=== PATIENT | female | born 1950 ===

== ENCOUNTER 2022-01-01 13:58 | Inpatient (IN) | payer SELFPAY ==
[2022-01-01] MEDS ORDERED: SODIUM CHLORIDE 0.9% 1000 ML IV SOLN IV ONE (14:55)
[2022-01-01] MEDS ORDERED: ACETAMINOPHEN 325 MG TAB PO ONE (14:56)
[2022-01-01 15:28] LABS: Hematocrit 36.1 % (30.3-42.9); Hemoglobin 11.7 gm/dl (10.1-14.3); Mean Corpuscular HGB Conc 32 % (30-34); Mean Corpuscular Volume 94 fl (79-97); Platelet Count 190 K/mm3 (140-440); Red Blood Count 3.85 M/mm3 (3.65-5.03)
[2022-01-01 15:32] LABS: INR 1.01 (0.87-1.13)
[2022-01-01 15:33] LABS: Partial Thromboplastin Time 35.8 Sec. (24.2-36.6)
[2022-01-01 15:48] LABS: Alanine Aminotransferase 45 units/L (7-56); Albumin 3.7 g/dL (3.9-5); BUN/Creatinine Ratio 33; Blood Urea Nitrogen 50 mg/dL (7-17); Calcium 8.9 mg/dL (8.4-10.2); Hemolysis Index 0
--- NOTE | 2022-01-01 15:52 | Emergency Department Report ---
ED Fever HPI - General Chief Complaint: Chest Pain Stated Complaint: CHEST PAIN/ABDOMINAL PAIN Time Seen by Provider: 01/01/22 14:37 Source: patient, family, old records ([facility] Exam Limitations: language barrier - History of Present Illness Initial Comments: 71-year-old female the past medical history hypertension and diabetes presents to the hospital complaining of 2 days of fever, fatigue, and generalized body aches. Patient also complaining of right-sided abdominal pain, nausea without vomiting, diarrhea, and cough. She is unvaccinated for COVID. Previous surgical history includes and gallbladder removal. Dysuria reported. Patient also have reproducible sternal chest tenderness with shortness of breath ED Review of Systems ROS: Stated complaint: CHEST PAIN/ABDOMINAL PAIN Other details as noted in HPI Comment: All other systems reviewed and negative ED Past Medical Hx - Past Medical History Previous Medical History?: Yes Hx Hypertension: Yes Hx Diabetes: Yes - Surgical History Past Surgical History?: Yes Hx Appendectomy: Yes Additional Surgical History: - Social History Smoking Status: Never Smoker Substance Use Type: None ED Physical Exam - General Limitations: Language Barrier - Other Other exam information: General: No acute distress Head: Atraumatic Eyes: normal appearance ENT: Moist mucous membranes Neck: Normal appearance, no midline tenderness Chest: Clear to auscultation bilaterally, reproducible anterior sternal chest wall tenderness to palpation CV: Regular rate and rhythm Abdomen: Soft, normal bowel sounds, right upper quadrant tenderness with minimal right lower quadrant tendenes, nondistended, no rebound or guarding Back: Normal inspection Extremity: Normal inspection, full range of motion Neuro: Alert O x 3, no facial asymmetry, speech clear, no gross motor sensory deficit Psych: Appropriate behavior Skin: No rash, hot to touch ED Course Vital Signs 01/01/22 01/01/22 01/01/22 14:06 14:31 16:43 Temperature 99.7 F H Pulse Rate 90 99 H 86 Respiratory 20 24 22 Rate Blood Pressure 128/37 Blood Pressure 153/97 128/37 97/37 [Right] O2 Sat by Pulse 95 94 97 Oximetry 01/01/22 17:40 Temperature 98.8 F Pulse Rate 79 Respiratory 17 Rate Blood Pressure Blood Pressure 93/33 [Right] O2 Sat by Pulse 94 Oximetry ED Medical Decision Making - Lab Data Result diagrams: 01/01/22 14:42 01/01/22 14:42 Lab Results 01/01/22 01/01/22 01/01/22 Range/Units 14:42 14:42 14:42 WBC 9.0 (4.5-11.0) K/mm3 RBC 3.85 (3.65-5.03) M/mm3 Hgb 11.7 (10.1-14.3) gm/dl Hct 36.1 (30.3-42.9) % MCV 94 (79-97) fl MCH 30 (28-32) pg MCHC 32 (30-34) % RDW 15.0 (13.2-15.2) % Plt Count 190 (140-440) K/mm3 Add Manual Diff Complete Total Counted 100 Seg Neutrophils % [employer] Seg Neuts % (Manual) 96.0 H (40.0-70.0) % Band Neutrophils % 0 % Lymphocytes % (Manual) 2.0 L (13.4-35.0) % Reactive Lymphs % (Man) 0 % Monocytes % (Manual) 1.0 (0.0-7.3) % Eosinophils % (Manual) 0 (0.0-4.3) % Basophils % (Manual) 0 (0.0-1.8) % Metamyelocytes % 1.0 % Myelocytes % 0 % Promyelocytes % 0 % Blast Cells % 0 % Nucleated RBC % Not Reportable Seg Neutrophils # Man 8.6 H (1.8-7.7) K/mm3 Band Neutrophils # 0.0 K/mm3 Lymphocytes # (Manual) 0.2 L (1.2-5.4) K/mm3 Abs React Lymphs (Man) 0.0 K/mm3 Monocytes # (Manual) 0.1 (0.0-0.8) K/mm3 Eosinophils # (Manual) 0.0 (0.0-0.4) K/mm3 Basophils # (Manual) 0.0 (0.0-0.1) K/mm3 Metamyelocytes # 0.1 K/mm3 Myelocytes # 0.0 K/mm3 Promyelocytes # 0.0 K/mm3 Blast Cells # 0.0 K/mm3 WBC Morphology Not Reportable Hypersegmented Neuts Not Reportable Hyposegmented Neuts Few Hypogranular Neuts Not Reportable Smudge Cells Not Reportable Toxic Granulation Not Reportable Toxic Vacuolation Not Reportable Dohle Bodies Not Reportable Pelger-Huet Anomaly Not Reportable Pearl Rods Not Reportable Platelet Estimate Consistent w auto Clumped Platelets Not Reportable Plt Clumps, EDTA Not Reportable Large Platelets Rare Giant Platelets Not Reportable Platelet Satelliting Not Reportable Plt Morphology Comment Not Reportable RBC Morphology Not Reportable Dimorphic RBCs Not Reportable Polychromasia Not Reportable Hypochromasia Not Reportable Poikilocytosis 1+ Anisocytosis Not Reportable Microcytosis Not Reportable Macrocytosis Not Reportable Spherocytes Few Pappenheimer Bodies Not Reportable Sickle Cells Not Reportable Target Cells Not Reportable Tear Drop Cells Not Reportable Ovalocytes Not Reportable Stomatocytes Few Helmet Cells Not Reportable Dubose-[place] Bodies Not Reportable [place] Rings Not Reportable Nishant Cells Not Reportable Bite Cells Not Reportable Crenated Cell Not Reportable Elliptocytes Not Reportable Acanthocytes (Spur) Not Reportable Rouleaux Not Reportable Hemoglobin C Crystals Not Reportable Schistocytes Not Reportable Malaria parasites Not Reportable Nicholas Bodies Not Reportable Hem Pathologist Commnt No PT 14.7 (12.2-14.9) Sec. INR 1.01 (0.87-1.13) APTT 35.8 (24.2-36.6) Sec. Sodium 130 L (137-145) mmol/L Potassium 4.1 (3.6-5.0) mmol/L Chloride 94.7 L (98-107) mmol/L Carbon Dioxide 21 L (22-30) mmol/L Anion Gap 18 mmol/L BUN 50 H (7-17) mg/dL Creatinine 1.5 H (0.6-1.2) mg/dL Estimated GFR 34 ml/min BUN/Creatinine Ratio 33 % Glucose 186 H (65-100) mg/dL Lactic Acid (0.7-2.0) mmol/L Calcium 8.9 (8.4-10.2) mg/dL Total Bilirubin 0.90 (0.1-1.2) mg/dL AST 91 H (5-40) units/L ALT 45 (7-56) units/L Alkaline Phosphatase 117 (35-129) units/L Troponin T < 0.010 (0.00-0.029) ng/mL Total Protein 6.4 (6.3-8.2) g/dL Albumin 3.7 L (3.9-5) g/dL Albumin/Globulin Ratio 1.4 % Lipase (13-60) units/L Urine Color (Yellow) Urine Turbidity (Clear) Urine pH (5.0-7.0) Ur Specific [place] (1.003-1.030) Urine Protein (Negative) mg/dL Urine Glucose (UA) (Negative) mg/dL Urine Ketones (Negative) mg/dL Urine Blood (Negative) Urine Nitrite (Negative) Urine Bilirubin (Negative) Urine Urobilinogen (<2.0) mg/dL Ur Leukocyte Esterase (Negative) Urine WBC (Auto) (0.0-6.0) /HPF Urine RBC (Auto) (0.0-6.0) /HPF U Epithel Cells (Auto) (0-13.0) /HPF Urine Bacteria (Auto) (Negative) /HPF Urine WBC Clumps /HPF Urine Mucus /HPF 01/01/22 01/01/22 01/01/22 Range/Units 14:42 15:02 16:43 WBC (4.5-11.0) K/mm3 RBC (3.65-5.03) M/mm3 Hgb (10.1-14.3) gm/dl Hct (30.3-42.9) % MCV (79-97) fl MCH (28-32) pg MCHC (30-34) % RDW (13.2-15.2) % Plt Count (140-440) K/mm3 Add Manual Diff Total Counted Seg Neutrophils % Seg Neuts % (Manual) (40.0-70.0) % Band Neutrophils % % Lymphocytes % (Manual) (13.4-35.0) % Reactive Lymphs % (Man) % Monocytes % (Manual) (0.0-7.3) % Eosinophils % (Manual) (0.0-4.3) % Basophils % (Manual) (0.0-1.8) % Metamyelocytes % % Myelocytes % % Promyelocytes % % Blast Cells % % Nucleated RBC % Seg Neutrophils # Man (1.8-7.7) K/mm3 Band Neutrophils # K/mm3 Lymphocytes # (Manual) (1.2-5.4) K/mm3 Abs React Lymphs (Man) K/mm3 Monocytes # (Manual) (0.0-0.8) K/mm3 Eosinophils # (Manual) (0.0-0.4) K/mm3 Basophils # (Manual) (0.0-0.1) K/mm3 Metamyelocytes # K/mm3 Myelocytes # K/mm3 Promyelocytes # K/mm3 Blast Cells # K/mm3 WBC Morphology Hypersegmented Neuts Hyposegmented Neuts Hypogranular Neuts Smudge Cells Toxic Granulation Toxic Vacuolation Dohle Bodies Pelger-Huet Anomaly Pearl Rods Platelet Estimate Clumped Platelets Plt Clumps, EDTA Large Platelets Giant Platelets Platelet Satelliting Plt Morphology Comment RBC Morphology Dimorphic RBCs Polychromasia Hypochromasia Poikilocytosis Anisocytosis Microcytosis Macrocytosis Spherocytes Pappenheimer Bodies Sickle Cells Target Cells Tear Drop Cells Ovalocytes Stomatocytes Helmet Cells Dubose-[place] Bodies [place] Rings [place] Cells Bite Cells Crenated Cell Elliptocytes Acanthocytes (Spur) Rouleaux Hemoglobin C Crystals Schistocytes Malaria parasites Nicholas Bodies Hem Pathologist Commnt PT (12.2-14.9) Sec. INR (0.87-1.13) APTT (24.2-36.6) Sec. Sodium (137-145) mmol/L Potassium (3.6-5.0) mmol/L Chloride (98-107) mmol/L Carbon Dioxide (22-30) mmol/L Anion Gap mmol/L BUN (7-17) mg/dL Creatinine (0.6-1.2) mg/dL Estimated GFR ml/min BUN/Creatinine Ratio % Glucose (65-100) mg/dL Lactic Acid 1.20 (0.7-2.0) mmol/L Calcium (8.4-10.2) mg/dL Total Bilirubin (0.1-1.2) mg/dL AST (5-40) units/L ALT (7-56) units/L Alkaline Phosphatase (35-129) units/L Troponin T (0.00-0.029) ng/mL Total Protein (6.3-8.2) g/dL Albumin (3.9-5) g/dL Albumin/Globulin Ratio % Lipase 49 (13-60) units/L Urine Color Yellow (Yellow) Urine Turbidity Cloudy (Clear) Urine pH 6.0 (5.0-7.0) Ur Specific [place] 1.013 (1.003-1.030) Urine Protein 30 mg/dl (Negative) mg/dL Urine Glucose (UA) >=500 (Negative) mg/dL Urine Ketones Neg (Negative) mg/dL Urine Blood Lg (Negative) Urine Nitrite Neg (Negative) Urine Bilirubin Neg (Negative) Urine Urobilinogen < 2.0 (<2.0) mg/dL Ur Leukocyte Esterase Lg (Negative) Urine WBC (Auto) > 182.0 H (0.0-6.0) /HPF Urine RBC (Auto) 36.0 (0.0-6.0) /HPF U Epithel Cells (Auto) 4.0 (0-13.0) /HPF Urine Bacteria (Auto) 4+ (Negative) /HPF Urine WBC Clumps 3+ /HPF Urine Mucus Few /HPF - EKG Data -: EKG Interpreted by Pr EKG shows normal: sinus rhythm, intervals (Prolonged TN 228), ST-T waves (No STEMI) Rate: normal (79) - EKG Data When compared to previous EKG there are: previous EKG unavailable - Radiology Data Radiology results: report reviewed CT abdomen pelvis w con INDICATION / CLINICAL INFORMATION: right sided abd pain, fever. TECHNIQUE: CT abdomen pelvis following 100 mL Omnipaque [address] scans at this location are performed using CT dose reduction for ALARA by means of automated exposure control. COMPARISON: None available. FINDINGS: Abdomen and pelvis: The exam is somewhat limited by respiratory motion artifact. The lower lungs are clear of acute infiltrate. The liver, spleen, pancreas adrenal glands are grossly unremarkable. The stomach is collapsed making evaluation difficult. The appendix is not well visualized. There is moderate stool burden within the cecum. No free air or free fluid is appreciated. There is moderate atherosclerotic disease of the abdominal aorta. Urinary bladder wall is slightly thickened. There is slight enhancement involving both ureters. There is slight bilateral perinephric stranding. Review of bone windows demonstrates mild thoracolumbar degenerative change IMPRESSION: Slight enhancement involving the urothelium of the urinary bladder and both ureters. This is somewhat nonspecific but can be seen with urinary tract infection. CHEST 1 VIEW 01/01/2022 2:29 PM INDICATION / CLINICAL INFORMATION: Chest Pain. COMPARISON: None available. FINDINGS: SUPPORT DEVICES: None. HEART / MEDIASTINUM: No significant abnormality. LUNGS / PLEURA: No significant pulmonary or pleural abnormality. No pneumothorax. ADDITIONAL FINDINGS: No significant additional findings. IMPRESSION: 1. No acute findings. - Medical Decision Making 69-year-old female presents to the hospital with fever and dysuria. ED work-up reveals acute UTI, renal insufficiency, hyponatremia, and dehydration. CT abdomen and pelvis consistent with a UTI with perinephric stranding. Patient treated with a 30 mill per KG bolus of normal saline and IV Rocephin. Patient does have some mild hypotension. Additional normal saline ordered. normal WBC count and lactic acid. hospitalist to admit Critical Care Time: No Critical care attestation.: If time is entered above; I have spent that time in minutes in the direct care of this critically ill patient, excluding procedure time. ED Disposition Clinical Impression: UTI (urinary tract infection), Dehydration, Renal insufficiency, Hyponatremia Disposition: 09 ADMITTED INPATIENT Is pt being admited?: Yes Condition: Stable Referrals: PRIMARY CARE, [Primary Care Provider] - 3-5 Days Time of Disposition: 19:20 (Dr Castle/hosptialist)
[2022-01-01 16:03] LABS: Basophils % (Manual) 0 % (0.0-1.8); Eosinophils % (Manual) 0 % (0.0-4.3); Total Cells Counted 100
[2022-01-01 16:05] LABS: Poikilocytosis 1+; Spherocytes Few; Stomatocytes Few
[2022-01-01 16:06] LABS: Large Platelets Rare; Platelet Estimate Consistent w Auto
[2022-01-01 16:54] LABS: Bilirubin,Urine NEG (Negative); Blood,Urine LG (Negative); Color,Urine Yellow (Yellow); Urobilinogen,Urine < 2.0 mg/dL (<2.0)
[2022-01-01 17:00] LABS: Bacteria,Urine 4+ /HPF (Negative); Mucus,Urine FEW /HPF
[2022-01-01 17:01] LABS: WBC,Urine > 182.0 /HPF (0.0-6.0)
[2022-01-01] MEDS ORDERED: cefTRIAXone/NS 1 GM/50 ML 1 GM/50 ML BAG IV ONE (17:25)
--- NOTE | 2022-01-01 17:44 | XRay Report ---
CHEST 1 VIEW 01/01/2022 2:29 PM INDICATION / CLINICAL INFORMATION: Chest Pain. COMPARISON: None available. FINDINGS: SUPPORT DEVICES: None. HEART / MEDIASTINUM: No significant abnormality. LUNGS / PLEURA: No significant pulmonary or pleural abnormality. No pneumothorax. ADDITIONAL FINDINGS: No significant additional findings. IMPRESSION: 1. No acute findings. Signer Name: Steven Euceda DO Signed: 01/01/2022 5:39 PM Workstation Name: [email or web address]
--- NOTE | 2022-01-01 19:06 | Cat Scan Report ---
CT abdomen pelvis w con INDICATION / CLINICAL INFORMATION: right sided abd pain, fever. TECHNIQUE: CT abdomen pelvis following 100 mL Omnipaque [address] scans at this location are performed using CT dose reduction for ALARA by means of automated exposure control. COMPARISON: None available. FINDINGS: Abdomen and pelvis: The exam is somewhat limited by respiratory motion artifact. The lower lungs are clear of acute infiltrate. The liver, spleen, pancreas adrenal glands are grossly unremarkable. The s tomach is collapsed making evaluation difficult. The appendix is not well visualized. There is modera te stool burden within the cecum. No free air or free fluid is appreciated. There is moderate atheros clerotic disease of the abdominal aorta. Urinary bladder wall is slightly thickened. There is slight enhancement involving both ureters. There is slight bilateral perinephric stranding. Review of bone windows demonstrates mild thoracolumbar degenerative change IMPRESSION: Slight enhancement involving the urothelium of the urinary bladder and both ureters. This is somewhat nonspecific but can be seen with urinary tract infection. Signer Name: Federico Smith MD Signed: 01/01/2022 7:02 PM Workstation Name: [email or web address] – [employer]
[2022-01-01] MEDS ORDERED: SODIUM CHLORIDE 0.9% 1000 ML 1,000 ML IV ONE (19:24)
--- NOTE | 2022-01-01 19:24 | History and Physical Report ---
History of Present Illness Chief complaint: I do not feel well History of present illness: 71 YO Female with HTN, DM, Vascular Dementia, Cerebral Atherosclerosis presents to ED for evaluation. Patient reports "I do not feel well". Patient states that over the previous 2 days she has experienced fever, fatigue, generalized body aches, lower abdominal discomfort, dysuria, nausea, diminished oral intake due to nausea, as well as low back pain. EMS was notified and upon arrival the patient was found to be in distress and subsequent transported to [facility] for further care and evaluation of the aforementioned symptoms. The patient was seen and evaluated in the emergency department. All lab imaging studies reviewed. Patient with CT scan of the abdomen and pelvis. Patient found to have clinical findings as well as clinical symptoms consistent with urinary tract infection complicated by cystitis as well as pyelonephritis, volume depletion, debility. Patient admitted to medical floor and initiated on IV antibiotic therapy. Patient knowledges fever but denies chills, chest pain, palpitation, adductive cough, skin rash and recent contact, ingestion of food/water from new or different sources, or known exposure to COVID-19. No prior admission for review. No medication listed at time of admission for campos nciliation. Advanced care planning conducted in ED. Past History Past Medical History: diabetes, hypertension Past Surgical History: appendectomy, Social history: , lives with family. denies: smoking, alcohol abuse Family history: diabetes, hypertension Medications and Allergies Allergies Allergy/AdvReac Type Severity Reaction Status Date / Time No Known Allergies Allergy Verified 01/01/22 14:15 Review of Systems Constitutional: fever, no weight loss, no weight gain Ears, nose, mouth and throat: no ear pain, no tinnitis, no decreased hearing Breasts: no change in shape, no swelling, no mass Cardiovascular: no chest pain, no orthopnea, no palpitations, no syncope Respiratory: no cough, no excessive sputum, no hemoptysis Gastrointestinal: abdominal pain, nausea, no constipation, no change in bowel habits, no hematemesis Genitourinary Female: pelvic pain, flank pain, dysuria, urgency, no hematuria, no vaginal itching, no vaginal odor, no genital sores, no vaginal dryness Rectal: no pain, no incontinence, no bleeding Musculoskeletal: no neck stiffness, no neck pain, no shooting arm pain, no arm numbness/tingling, no shooting leg pain Integumentary: no rash, no redness, no sores, no jaundice, no boils Neurological: no head injury, no paralysis, no parathesias, no numbness, no syncope Psychiatric: no anxiety, no memory loss, no sleep disturbances, no change in appetite, no change in libido Endocrine: no cold intolerance, no heat intolerance, no excessive thirst, no polydipsia, no nocturia, no excessive sweating Hematologic/Lymphatic: no easy bruising, no easy bleeding, no lymphedema Allergic/Immunologic: no urticaria, no allergic rhinitis, no anaphylaxis Exam - Constitutional Vitals: Temp Pulse Resp BP Pulse Ox 98.8 F 79 17 93/33 94 01/01/22 17:40 01/01/22 17:40 01/01/22 17:40 01/01/22 17:40 01/01/22 17:40 General appearance: Present: mild distress - EENT Eyes: Present: PERRL ENT: hearing intact, clear oral mucosa - Neck Neck: Present: supple, normal ROM - Respiratory Respiratory effort: normal Respiratory: bilateral: CTA - Cardiovascular Heart Sounds: Present: S1 & S2. Absent: rub, click - Extremities Extremities: pulses symmetrical, No edema Peripheral Pulses: within normal limits - Abdominal General gastrointestinal: Present: soft, non-tender, tender, normal bowel sounds Localized gastrointestinal: tender: suprapubic Female genitourinary: Present: normal - Rectal Rectal Exam: normal exam-external/orifice - Integumentary Integumentary: Present: clear, warm, dry - Musculoskeletal Musculoskeletal: gait normal, strength equal bilaterally - Psychiatric Psychiatric: appropriate mood/affect, intact judgment & insight - Neurologic Neurologic: CNII-XII intact, moves all extremities HEART Score - HEART Score Troponin: Troponin T < 0.010 ng/mL (0.00-0.029) 01/01/22 14:42 Results - Labs CBC & Chem 7: 01/01/22 14:42 01/01/22 14:42 Labs: Abnormal lab results 01/01/22 01/01/22 01/01/22 Range/Units 14:42 14:42 16:43 Seg Neuts % (Manual) 96.0 H (40.0-70.0) % Lymphocytes % (Manual) 2.0 L (13.4-35.0) % Seg Neutrophils # Man 8.6 H (1.8-7.7) K/mm3 Lymphocytes # (Manual) 0.2 L (1.2-5.4) K/mm3 Sodium 130 L (137-145) mmol/L Chloride 94.7 L (98-107) mmol/L Carbon Dioxide 21 L (22-30) mmol/L BUN 50 H (7-17) mg/dL Creatinine 1.5 H (0.6-1.2) mg/dL Glucose 186 H (65-100) mg/dL AST 91 H (5-40) units/L Albumin 3.7 L (3.9-5) g/dL Urine WBC (Auto) > 182.0 H (0.0-6.0) /HPF Assessment and Plan - Patient Problems (1) Pyelonephritis Current Visit: Yes Status: Acute Plan to address problem: CT scan abdomen pelvis, CBC, CMP, urinalysis, IV antibiotic therapy, supportive care. Pain control. (2) UTI (urinary tract infection) Current Visit: Yes Status: Acute Qualifiers: Encounter type: initial encounter Plan to address problem: Urinalysis, IV fluid resuscitation therapy, IV antibiotic therapy, supportive care. (3) Volume depletion Current Visit: Yes Status: Acute Plan to address problem: BMP, IV fluid resuscitation therapy, repeat BMP in a.m. to monitor serum creatinine as well as GFR, monitor fluid balance. (4) Acute kidney injury ([place]) with acute tubular necrosis (ATN) Current Visit: Yes Status: Acute Plan to address problem: BMP, IV fluid resuscitation therapy, monitor fluid balance, strict I's/O, repeat BMP in a.m. (5) Vascular dementia Current Visit: Yes Status: Acute Qualifiers: Dementia behavioral disturbance: without behavioral disturbance Qualified Code(s): F01.50 - Vascular dementia without behavioral disturbance Plan to address problem: Verbal prompting, verbal redirection, benzodiazepine therapy as clinically indicated. (6) Cerebral atherosclerosis Current Visit: Yes Status: Acute Plan to address problem: Antiplatelet therapy, risk factor reduction, supportive care. (7) Hyponatremia Current Visit: Yes Status: Acute Plan to address problem: IV fluid resuscitation therapy, BMP, repeat BMP in AM. (8) DVT prophylaxis Current Visit: Yes Status: Acute Plan to address problem: SCD to bilateral lower extremities while in bed, (9) Advance care planning Current Visit: Yes Status: Acute Plan to address problem: Disease education conducted, care plan discussed, diagnosis discussed, prognosis discussed, patient is full code. Patient knowledges understanding and agreement with care plan, +30 minutes. (10) Preventative health care Current Visit: Yes Status: Acute Plan to address problem: Patient counseled regarding home safety measures, accident avoidance, balanced diet, outpatient follow-up with primary care physician for all age and risk factor appropriate screening test. +30 minutes.
[2022-01-01] MEDS ORDERED: ONDANSETRON 4 MG/2 ML INJ IV PRN (19:33)
[2022-01-01] MEDS ORDERED: DEXTROSE 50% IN WATER (25GM) 50 ML SYRINGE IV PRN (19:47)
[2022-01-01] MEDS: ALBUTEROL 2.5 MG/3 ML NEBU IH PRN ×2 (22:20→22:28)
[2022-01-01] MEDS: SODIUM CHLORIDE 0.9% 1000 ML 1,000 ML IV SCH (22:32)
[2022-01-01] MEDS ORDERED: methylPREDNISolone Sod Succinate 125 MG/2 ML INJ IV ONE (22:45)
[2022-01-01] MEDS: INSULIN LISPRO 100 UNIT/ML SUB-Q SCH (22:51)
[2022-01-02 05:17] LABS: Calcium 8.6 mg/dL (8.4-10.2)
[2022-01-02] MEDS: INSULIN LISPRO 100 UNIT/ML SUB-Q SCH ×4 (08:06→22:49)
--- NOTE | 2022-01-02 09:55 | Progress Note ---
Assessment and Plan Assessment and plan: -- Acute pyelonephritis IV fluids, empiric antibiotics follow cultures supportive care, Check CT scan abdomen pelvis, --UTI (urinary tract infection) Urinalysis, IV fluid resuscitation therapy, IV antibiotic therapy, supportive care. Follow cultures and sensitivities --Volume depletion/dehydration Continue IV fluids, plenty of oral fluids Supportive care --Acute kidney injury (DICKSON) with acute tubular necrosis (ATN) IV fluid resuscitation therapy, monitor fluid balance, strict I's/O, repeat BMP in a.m. --History of vascular dementia Verbal prompting, verbal redirection, benzodiazepine therapy as clinically indicated. --Cerebral atherosclerosis Antiplatelet therapy, risk factor reduction, And supportive care. --Hyponatremia IV fluid resuscitation therapy, Monitor electrolytes . -- DVT prophylaxis SCD to bilateral lower extremities while in bed, --Advance care planning Disease education conducted, care plan discussed, diagnosis discussed, , prognosis discussed, patient is full code. Patient knowledges understanding and agreement with care plan, +30 minutes. --Preventive health care Patient counseled regarding home safety measures, accident avoidance, , balanced diet, outpatient follow-up with primary care physician for all age and risk factor appropriate screening test. +30 minutes. History Interval history: I seen and examined the patient at the bedside patient's chart and medications reviewed patient complains of some abdominal pain and flank pain Admitted with pyelonephritis on IV antibiotics Patient also complains of some back pain Vital signs noted Hospitalist Physical - Constitutional Vitals: Temp Pulse Resp BP Pulse Ox 97.8 F 72 18 101/26 100 01/02/22 05:56 01/02/22 05:56 01/02/22 05:56 01/02/22 05:56 01/02/22 07:26 General appearance: Present: mild distress, well-nourished, obese - EENT Eyes: Present: PERRL, EOM intact - Neck Neck: Present: supple, normal ROM - Respiratory Respiratory effort: normal Respiratory: bilateral: diminished, negative: rales, rhonchi, wheezing - Cardiovascular Rhythm: regular Heart Sounds: Present: S1 & S2 - Extremities Extremities: no ischemia, No edema - Abdominal General gastrointestinal: soft, non-tender, non-distended, normal bowel sounds - Integumentary Integumentary: Present: clear, warm - Psychiatric Psychiatric: appropriate mood/affect, cooperative - Neurologic Neurologic: CNII-XII intact, moves all extremities HEART Score - HEART Score Troponin: Troponin T < 0.010 ng/mL (0.00-0.029) 01/01/22 14:42 Results - Labs CBC & Chem 7: 01/01/22 14:42 01/02/22 04:45 Labs: Laboratory Last Values WBC 9.0 K/mm3 (4.5-11.0) 01/01/22 14:42 RBC 3.85 M/mm3 (3.65-5.03) 01/01/22 14:42 Hgb 11.7 gm/dl (10.1-14.3) 01/01/22 14:42 Hct 36.1 % (30.3-42.9) 01/01/22 14:42 MCV 94 fl (79-97) 01/01/22 14:42 MCH 30 pg (28-32) 01/01/22 14:42 MCHC 32 % (30-34) 01/01/22 14:42 RDW 15.0 % (13.2-15.2) 01/01/22 14:42 Plt Count 190 K/mm3 (140-440) 01/01/22 14:42 Add Manual Diff Complete 01/01/22 14:42 Total Counted 100 01/01/22 14:42 Seg 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 % [employer] 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 01/01/22 14:42 Seg Neuts % (Manual) 96.0 % (40.0-70.0) H 01/01/22 14:42 Band Neutrophils % 0 % 01/01/22 14:42 Lymphocytes % (Manual) 2.0 % (13.4-35.0) L 01/01/22 14:42 Reactive Lymphs % (Man) 0 % 01/01/22 14:42 Monocytes % (Manual) 1.0 % (0.0-7.3) 01/01/22 14:42 Eosinophils % (Manual) 0 % (0.0-4.3) 01/01/22 14:42 Basophils % (Manual) 0 % (0.0-1.8) 01/01/22 14:42 Metamyelocytes % 1.0 % 01/01/22 14:42 Myelocytes % 0 % 01/01/22 14:42 Promyelocytes % 0 % 01/01/22 14:42 Blast Cells % 0 % 01/01/22 14:42 Nucleated RBC % Not Reportable 01/01/22 14:42 Seg Neutrophils # Man 8.6 K/mm3 (1.8-7.7) H 01/01/22 14:42 Band Neutrophils # 0.0 K/mm3 01/01/22 14:42 Lymphocytes # (Manual) 0.2 K/mm3 (1.2-5.4) L 01/01/22 14:42 Abs React Lymphs (Man) 0.0 K/mm3 01/01/22 14:42 Monocytes # (Manual) 0.1 K/mm3 (0.0-0.8) 01/01/22 14:42 Eosinophils # (Manual) 0.0 K/mm3 (0.0-0.4) 01/01/22 14:42 Basophils # (Manual) 0.0 K/mm3 (0.0-0.1) 01/01/22 14:42 Metamyelocytes # 0.1 K/mm3 01/01/22 14:42 Myelocytes # 0.0 K/mm3 01/01/22 14:42 Promyelocytes # 0.0 K/mm3 01/01/22 14:42 Blast Cells # 0.0 K/mm3 01/01/22 14:42 WBC Morphology Not Reportable 01/01/22 14:42 Hypersegmented Neuts Not Reportable 01/01/22 14:42 Hyposegmented Neuts Few 01/01/22 14:42 Hypogranular Neuts Not Reportable 01/01/22 14:42 Smudge Cells Not Reportable 01/01/22 14:42 Toxic Granulation Not Reportable 01/01/22 14:42 Toxic Vacuolation Not Reportable 01/01/22 14:42 Dohle Bodies Not Reportable 01/01/22 14:42 Pelger-Huet Anomaly Not Reportable 01/01/22 14:42 Pearl Rods Not Reportable 01/01/22 14:42 Platelet Estimate Consistent w auto 01/01/22 14:42 Clumped Platelets Not Reportable 01/01/22 14:42 Plt Clumps, EDTA Not Reportable 01/01/22 14:42 Large Platelets Rare 01/01/22 14:42 Giant Platelets Not Reportable 01/01/22 14:42 Platelet Satelliting Not Reportable 01/01/22 14:42 Plt Morphology Comment Not Reportable 01/01/22 14:42 RBC Morphology Not Reportable 01/01/22 14:42 Dimorphic RBCs Not Reportable 01/01/22 14:42 Polychromasia Not Reportable 01/01/22 14:42 Hypochromasia Not Reportable 01/01/22 14:42 Poikilocytosis 1+ 01/01/22 14:42 Anisocytosis Not Reportable 01/01/22 14:42 Microcytosis Not Reportable 01/01/22 14:42 Macrocytosis Not Reportable 01/01/22 14:42 Spherocytes Few 01/01/22 14:42 Pappenheimer Bodies Not Reportable 01/01/22 14:42 Sickle Cells Not Reportable 01/01/22 14:42 Target Cells Not Reportable 01/01/22 14:42 Tear Drop Cells Not Reportable 01/01/22 14:42 Ovalocytes Not Reportable 01/01/22 14:42 Stomatocytes Few 01/01/22 14:42 Helmet Cells Not Reportable 01/01/22 14:42 [place] Bodies Not Reportable 01/01/22 14:42 [place] Rings Not Reportable 01/01/22 14:42 [place] Cells Not Reportable 01/01/22 14:42 Bite Cells Not Reportable 01/01/22 14:42 Crenated Cell Not Reportable 01/01/22 14:42 Elliptocytes Not Reportable 01/01/22 14:42 Acanthocytes (Spur) Not Reportable 01/01/22 14:42 Rouleaux Not Reportable 01/01/22 14:42 Hemoglobin C Crystals Not Reportable 01/01/22 14:42 Schistocytes Not Reportable 01/01/22 14:42 Malaria parasites Not Reportable 01/01/22 14:42 Nicholas Bodies Not Reportable 01/01/22 14:42 Hem Pathologist Commnt No 01/01/22 14:42 PT 14.7 Sec. (12.2-14.9) 01/01/22 14:42 INR 1.01 (0.87-1.13) 01/01/22 14:42 APTT 35.8 Sec. (24.2-36.6) 01/01/22 14:42 Sodium 132 mmol/L (137-145) L 01/02/22 04:45 Potassium 4.3 mmol/L (3.6-5.0) 01/02/22 04:45 Chloride 99.9 mmol/L (98-107) 01/02/22 04:45 Carbon Dioxide 17 mmol/L (22-30) L 01/02/22 04:45 Anion Gap 19 mmol/L 01/02/22 04:45 BUN 49 mg/dL (7-17) H 01/02/22 04:45 Creatinine 1.7 mg/dL (0.6-1.2) H 01/02/22 04:45 Estimated GFR 30 ml/min 01/02/22 04:45 BUN/Creatinine Ratio 29 % 01/02/22 04:45 Glucose 271 mg/dL (65-100) H 01/02/22 04:45 POC Glucose 251 mg/dL (70-105) H 01/02/22 07:56 Lactic Acid 0.80 mmol/L (0.7-2.0) 01/01/22 20:30 Calcium 8.6 mg/dL (8.4-10.2) 01/02/22 04:45 Total Bilirubin 0.90 mg/dL (0.1-1.2) 01/01/22 14:42 AST 91 units/L (5-40) H 01/01/22 14:42 ALT 45 units/L (7-56) 01/01/22 14:42 Alkaline Phosphatase 117 units/L (35-129) 01/01/22 14:42 Troponin T < 0.010 ng/mL (0.00-0.029) 01/01/22 14:42 Total Protein 6.4 g/dL (6.3-8.2) 01/01/22 14:42 Albumin 3.7 g/dL (3.9-5) L 01/01/22 14:42 Albumin/Globulin Ratio 1.4 % 01/01/22 14:42 Lipase 49 units/L (13-60) 01/01/22 14:42 Urine Color Yellow (Yellow) 01/01/22 16:43 Urine Turbidity Cloudy (Clear) 01/01/22 16:43 Urine pH 6.0 (5.0-7.0) 01/01/22 16:43 Ur Specific [place] 1.013 (1.003-1.030) 01/01/22 16:43 Urine Protein 30 mg/dl mg/dL (Negative) 01/01/22 16:43 Urine Glucose (UA) >=500 mg/dL (Negative) 01/01/22 16:43 Urine Ketones Neg mg/dL (Negative) 01/01/22 16:43 Urine Blood Lg (Negative) 01/01/22 16:43 Urine Nitrite Neg (Negative) 01/01/22 16:43 Urine Bilirubin Neg (Negative) 01/01/22 16:43 Urine Urobilinogen < 2.0 mg/dL (<2.0) 01/01/22 16:43 Ur Leukocyte Esterase Lg (Negative) 01/01/22 16:43 Urine WBC (Auto) > 182.0 /HPF (0.0-6.0) H 01/01/22 16:43 Urine RBC (Auto) 36.0 /HPF (0.0-6.0) 01/01/22 16:43 U Epithel Cells (Auto) 4.0 /HPF (0-13.0) 01/01/22 16:43 Urine Bacteria (Auto) 4+ /HPF (Negative) 01/01/22 16:43 Urine WBC Clumps 3+ /HPF 01/01/22 16:43 Urine Mucus Few /HPF 01/01/22 16:43 Microbiology: Microbiology 01/01/22 15:02 Peripheral/Venous Blood Culture - Preliminary Culture in Progress 01/01/22 15:02 Peripheral/Venous Blood Culture - Preliminary Culture in Progress Inman/IV: Voiding Method Bedpan Active Medications - Current Medications Current Medications: Generic Name Dose Route Start Last Admin Trade Name Freq PRN Reason Stop Dose Admin Acetaminophen 650 mg 01/01/22 19:33 Acetaminophen 325 Mg Tab PO Q4H PRN Pain MILD(1-3)/Fever >100.5/WHITE Albuterol 2.5 mg 01/01/22 19:33 01/01/22 22:28 Albuterol 2.5 Mg/3 Ml Nebu IH 2.5 mg Q4HRT PRN Administration Shortness Of Breath Dextrose 0 ml 01/01/22 19:47 Dextrose 50% In Water (25gm) 50 Ml Syringe IV Q30MIN PRN Hypoglycemia Protocol Hydromorphone HCl 0.5 mg 01/01/22 19:33 Hydromorphone 0.5 Mg/0.5 Ml Inj IV Q23H PRN Pain , Severe (7-10) Sodium Chloride 1,000 mls @ 100 mls/hr 01/01/22 19:45 01/01/22 22:32 Nacl 0.9% 1000 Ml IV 100 mls/hr DIRECT JOAN Administration Levofloxacin/Dextrose 750 mg in 150 mls @ 100 mls/hr 01/01/22 22:00 01/01/22 22:31 Levaquin 750mg/150ml IV 100 mls/hr Q48H JOAN Administration Protocol Insulin Human Lispro 0 unit 01/01/22 22:00 01/02/22 08:06 Insulin Lispro 100 Unit/Ml SUB-Q 4 unit ACHS JOAN Administration Protocol Ondansetron HCl 4 mg 01/01/22 19:33 Ondansetron 4 Mg/2 Ml Inj IV Q8H PRN Nausea And Vomiting Oxycodone/Acetaminophen 1 tab 01/01/22 19:33 Oxycodone /Acetaminophen 5-325mg Tab PO Q16H PRN Pain, Moderate (4-6) Sodium Chloride 10 ml 01/01/22 22:00 01/02/22 09:04 Sodium Chloride 0.9% 10 Ml Flush Syringe IV Not Given BID JOAN Sodium Chloride 10 ml 01/01/22 19:33 Sodium Chloride 0.9% 10 Ml Flush Syringe IV PRN PRN LINE FLUSH
[2022-01-02] MEDS: SODIUM CHLORIDE 0.9% 1000 ML 1,000 ML IV SCH ×2 (14:24→22:57)
[2022-01-02] MEDS ORDERED: INSULIN NPH/REGULAR 70/30 INJ SUB-Q SCH (17:00)
[2022-01-02] MEDS: INSULIN NPH/REGULAR 70/30 INJ SUB-Q SCH (17:32)
[2022-01-02] MEDS: HYDROmorphone 0.5 MG/0.5 ML INJ IV PRN (23:40)
[2022-01-03 05:42] LABS: Calcium 8.9 mg/dL (8.4-10.2)
[2022-01-03] MEDS: INSULIN LISPRO 100 UNIT/ML SUB-Q SCH ×4 (07:16→22:33)
[2022-01-03] MEDS: INSULIN NPH/REGULAR 70/30 INJ SUB-Q SCH ×2 (07:18→16:33)
--- NOTE | 2022-01-03 10:46 | Progress Note ---
Assessment and Plan Assessment and plan: --severe hyperglycemia/uncontrolled blood sugars; moderate control Accu-Chek sliding scale coverage changed to high scale, long-acting insulin 70/30 10 units twice a day Check hemoglobin A1c,, diabetic education, diabetic diet education Home health nurse at discharge for disease monitoring, closely monitor the patient and adjust management as needed We will consult diabetic specialist tomorrow for counseling. Plan of care reviewed with the patient and her nurse HbA1c 7.4 -- Acute pyelonephritis IV fluids, empiric antibiotics follow cultures supportive care, Continue Levaquin, follow-up urine and blood cultures Supportive care --UTI (urinary tract infection) Urinalysis, IV fluid resuscitation therapy, IV antibiotic therapy, supportive care. Follow cultures and sensitivities --Volume depletion/dehydration Continue IV fluids, plenty of oral fluids Supportive care --Acute kidney injury (DICKSON) with acute tubular necrosis (ATN) IV fluid resuscitation therapy, monitor fluid balance, strict I's/O, repeat BMP in a.m. --History of vascular dementia Verbal prompting, verbal redirection, benzodiazepine therapy as clinically indicated. --Cerebral atherosclerosis Antiplatelet therapy, risk factor reduction, And supportive care. --Hyponatremia IV fluid resuscitation therapy, Monitor electrolytes . -- DVT prophylaxis SCD to bilateral lower extremities while in bed, --Advance care plannin min Disease education conducted, care plan discussed, diagnosis discussed, , prognosis discussed, patient is full code. Patient knowledges understanding and agreement with care plan, +30 minutes. --Preventive health care +30 minutes. Patient counseled regarding home safety measures, accident avoidance, , balanced diet, outpatient follow-up with primary care physician for all age and risk factor appropriate screening test. Closely monitor the patient and adjust management as needed Plan of care reviewed with the patient [through interpretation by all bilingual family member ]and the family at the bedside History Interval history: I have seen and examined the patient at the bedside Patient's chart and medications reviewed Patient feels slightly better Vital signs noted Hospitalist Physical - Constitutional Vitals: Temp Pulse Resp BP Pulse Ox 98.0 F 58 L 18 161/52 98 01/02/22 23:10 01/02/22 23:10 01/02/22 23:10 01/02/22 23:10 01/03/22 08:58 General appearance: Present: mild distress, well-nourished, obese - EENT Eyes: Present: PERRL, EOM intact - Neck Neck: Present: supple, normal ROM - Respiratory Respiratory effort: normal Respiratory: bilateral: diminished, negative: rales, rhonchi, wheezing - Cardiovascular Rhythm: regular Heart Sounds: Present: S1 & S2 - Extremities Extremities: no ischemia, No edema - Abdominal General gastrointestinal: soft, non-tender, non-distended, normal bowel sounds - Integumentary Integumentary: Present: clear, warm - Psychiatric Psychiatric: appropriate mood/affect, cooperative - Neurologic Neurologic: moves all extremities HEART Score - HEART Score Troponin: Troponin T < 0.010 ng/mL (0.00-0.029) 01/01/22 14:42 Results - Labs CBC & Chem 7: 01/01/22 14:42 01/03/22 05:04 Labs: Laboratory Last Values WBC 9.0 K/mm3 (4.5-11.0) 01/01/22 14:42 RBC 3.85 M/mm3 (3.65-5.03) 01/01/22 14:42 Hgb 11.7 gm/dl (10.1-14.3) 01/01/22 14:42 Hct 36.1 % (30.3-42.9) 01/01/22 14:42 MCV 94 fl (79-97) 01/01/22 14:42 MCH 30 pg (28-32) 01/01/22 14:42 MCHC 32 % (30-34) 01/01/22 14:42 RDW 15.0 % (13.2-15.2) 01/01/22 14:42 Plt Count 190 K/mm3 (140-440) 01/01/22 14:42 Add Manual Diff Complete 01/01/22 14:42 Total Counted 100 01/01/22 14:42 Seg Neutrophils % Fixed Interest Dealer 01/01/22 14:42 Seg Neuts % (Manual) 96.0 % (40.0-70.0) H 01/01/22 14:42 Band Neutrophils % 0 % 01/01/22 14:42 Lymphocytes % (Manual) 2.0 % (13.4-35.0) L 01/01/22 14:42 Reactive Lymphs % (Man) 0 % 01/01/22 14:42 Monocytes % (Manual) 1.0 % (0.0-7.3) 01/01/22 14:42 Eosinophils % (Manual) 0 % (0.0-4.3) 01/01/22 14:42 Basophils % (Manual) 0 % (0.0-1.8) 01/01/22 14:42 Metamyelocytes % 1.0 % 01/01/22 14:42 Myelocytes % 0 % 01/01/22 14:42 Promyelocytes % 0 % 01/01/22 14:42 Blast Cells % 0 % 01/01/22 14:42 Nucleated RBC % Not Reportable 01/01/22 14:42 Seg Neutrophils # Man 8.6 K/mm3 (1.8-7.7) H 01/01/22 14:42 Band Neutrophils # 0.0 K/mm3 01/01/22 14:42 Lymphocytes # (Manual) 0.2 K/mm3 (1.2-5.4) L 01/01/22 14:42 Abs React Lymphs (Man) 0.0 K/mm3 01/01/22 14:42 Monocytes # (Manual) 0.1 K/mm3 (0.0-0.8) 01/01/22 14:42 Eosinophils # (Manual) 0.0 K/mm3 (0.0-0.4) 01/01/22 14:42 Basophils # (Manual) 0.0 K/mm3 (0.0-0.1) 01/01/22 14:42 Metamyelocytes # 0.1 K/mm3 01/01/22 14:42 Myelocytes # 0.0 K/mm3 01/01/22 14:42 Promyelocytes # 0.0 K/mm3 01/01/22 14:42 Blast Cells # 0.0 K/mm3 01/01/22 14:42 WBC Morphology Not Reportable 01/01/22 14:42 Hypersegmented Neuts Not Reportable 01/01/22 14:42 Hyposegmented Neuts Few 01/01/22 14:42 Hypogranular Neuts Not Reportable 01/01/22 14:42 Smudge Cells Not Reportable 01/01/22 14:42 Toxic Granulation Not Reportable 01/01/22 14:42 Toxic Vacuolation Not Reportable 01/01/22 14:42 Dohle Bodies Not Reportable 01/01/22 14:42 Pelger-Huet Anomaly Not Reportable 01/01/22 14:42 Pearl Rods Not Reportable 01/01/22 14:42 Platelet Estimate Consistent w auto 01/01/22 14:42 Clumped Platelets Not Reportable 01/01/22 14:42 Plt Clumps, EDTA Not Reportable 01/01/22 14:42 Large Platelets Rare 01/01/22 14:42 Giant Platelets Not Reportable 01/01/22 14:42 Platelet Satelliting Not Reportable 01/01/22 14:42 Plt Morphology Comment Not Reportable 01/01/22 14:42 RBC Morphology Not Reportable 01/01/22 14:42 Dimorphic RBCs Not Reportable 01/01/22 14:42 Polychromasia Not Reportable 01/01/22 14:42 Hypochromasia Not Reportable 01/01/22 14:42 Poikilocytosis 1+ 01/01/22 14:42 Anisocytosis Not Reportable 01/01/22 14:42 Microcytosis Not Reportable 01/01/22 14:42 Macrocytosis Not Reportable 01/01/22 14:42 Spherocytes Few 01/01/22 14:42 Pappenheimer Bodies Not Reportable 01/01/22 14:42 Sickle Cells Not Reportable 01/01/22 14:42 Target Cells Not Reportable 01/01/22 14:42 Tear Drop Cells Not Reportable 01/01/22 14:42 Ovalocytes Not Reportable 01/01/22 14:42 Stomatocytes Few 01/01/22 14:42 Helmet Cells Not Reportable 01/01/22 14:42 [place] Bodies Not Reportable 01/01/22 14:42 [place] Rings Not Reportable 01/01/22 14:42 [place] Cells Not Reportable 01/01/22 14:42 Bite Cells Not Reportable 01/01/22 14:42 Crenated Cell Not Reportable 01/01/22 14:42 Elliptocytes Not Reportable 01/01/22 14:42 Acanthocytes (Spur) Not Reportable 01/01/22 14:42 Rouleaux Not Reportable 01/01/22 14:42 Hemoglobin C Crystals Not Reportable 01/01/22 14:42 Schistocytes Not Reportable 01/01/22 14:42 Malaria parasites Not Reportable 01/01/22 14:42 Nicholas Bodies Not Reportable 01/01/22 14:42 Hem Pathologist Commnt No 01/01/22 14:42 PT 14.7 Sec. (12.2-14.9) 01/01/22 14:42 INR 1.01 (0.87-1.13) 01/01/22 14:42 APTT 35.8 Sec. (24.2-36.6) 01/01/22 14:42 Sodium 133 mmol/L (137-145) L 01/03/22 05:04 Potassium 4.2 mmol/L (3.6-5.0) 01/03/22 05:04 Chloride 105.0 mmol/L (98-107) 01/03/22 05:04 Carbon Dioxide 17 mmol/L (22-30) L 01/03/22 05:04 Anion Gap 15 mmol/L 01/03/22 05:04 BUN 49 mg/dL (7-17) H 01/03/22 05:04 Creatinine 1.2 mg/dL (0.6-1.2) 01/03/22 05:04 Estimated GFR 44 ml/min 01/03/22 05:04 BUN/Creatinine Ratio 41 % 01/03/22 05:04 Glucose 205 mg/dL (65-100) H 01/03/22 05:04 POC Glucose 191 mg/dL (70-105) H 01/03/22 06:35 Hemoglobin A1c 7.4 % (4-6) H 01/03/22 05:04 Lactic Acid 0.80 mmol/L (0.7-2.0) 01/01/22 20:30 Calcium 8.9 mg/dL (8.4-10.2) 01/03/22 05:04 Magnesium 2.40 mg/dL (1.7-2.3) H 01/03/22 05:04 Total Bilirubin 0.90 mg/dL (0.1-1.2) 01/01/22 14:42 AST 91 units/L (5-40) H 01/01/22 14:42 ALT 45 units/L (7-56) 01/01/22 14:42 Alkaline Phosphatase 117 units/L (35-129) 01/01/22 14:42 Troponin T < 0.010 ng/mL (0.00-0.029) 01/01/22 14:42 Total Protein 6.4 g/dL (6.3-8.2) 01/01/22 14:42 Albumin 3.7 g/dL (3.9-5) L 01/01/22 14:42 Albumin/Globulin Ratio 1.4 % 01/01/22 14:42 Lipase 49 units/L (13-60) 01/01/22 14:42 Urine Color Yellow (Yellow) 01/01/22 16:43 Urine Turbidity Cloudy (Clear) 01/01/22 16:43 Urine pH 6.0 (5.0-7.0) 01/01/22 16:43 Ur Specific [place] 1.013 (1.003-1.030) 01/01/22 16:43 Urine Protein 30 mg/dl mg/dL (Negative) 01/01/22 16:43 Urine Glucose (UA) >=500 mg/dL (Negative) 01/01/22 16:43 Urine Ketones Neg mg/dL (Negative) 01/01/22 16:43 Urine Blood Lg (Negative) 01/01/22 16:43 Urine Nitrite Neg (Negative) 01/01/22 16:43 Urine Bilirubin Neg (Negative) 01/01/22 16:43 Urine Urobilinogen < 2.0 mg/dL (<2.0) 01/01/22 16:43 Ur Leukocyte Esterase Lg (Negative) 01/01/22 16:43 Urine WBC (Auto) > 182.0 /HPF (0.0-6.0) H 01/01/22 16:43 Urine RBC (Auto) 36.0 /HPF (0.0-6.0) 01/01/22 16:43 U Epithel Cells (Auto) 4.0 /HPF (0-13.0) 01/01/22 16:43 Urine Bacteria (Auto) 4+ /HPF (Negative) 01/01/22 16:43 Urine WBC Clumps 3+ /HPF 01/01/22 16:43 Urine Mucus Few /HPF 01/01/22 16:43 Microbiology: Microbiology 01/01/22 15:02 Peripheral/Venous Blood Culture - Preliminary NO GROWTH AFTER 24 HOURS 01/01/22 15:02 Peripheral/Venous Blood Culture - Preliminary NO GROWTH AFTER 24 HOURS Inman/IV: Voiding Method Toilet Active Medications - Current Medications Current Medications: Generic Name Dose Route Start Last Admin Trade Name Freq PRN Reason Stop Dose Admin Acetaminophen 650 mg 01/01/22 19:33 Acetaminophen 325 Mg Tab PO Q4H PRN Pain MILD(1-3)/Fever >100.5/WHITE Albuterol 2.5 mg 01/01/22 19:33 01/01/22 22:28 Albuterol 2.5 Mg/3 Ml Nebu IH 2.5 mg Q4HRT PRN Administration Shortness Of Breath Dextrose 0 ml 01/01/22 19:47 Dextrose 50% In Water (25gm) 50 Ml Syringe IV Q30MIN PRN Hypoglycemia Protocol Hydromorphone HCl 0.5 mg 01/01/22 19:33 01/02/22 23:40 Hydromorphone 0.5 Mg/0.5 Ml Inj IV 0.5 mg Q23H PRN Administration Pain , Severe (7-10) Sodium Chloride 1,000 mls @ 100 mls/hr 01/01/22 19:45 01/02/22 22:57 Nacl 0.9% 1000 Ml IV 100 mls/hr DIRECT JOAN Administration Levofloxacin/Dextrose 750 mg in 150 mls @ 100 mls/hr 01/01/22 22:00 01/01/22 22:31 Levaquin 750mg/150ml IV 100 mls/hr Q48H JOAN Administration Protocol Insulin Human Isoph/Insulin Regular 10 unit 01/02/22 18:00 01/03/22 07:18 Insulin Nph/Regular 70/30 Inj SUB-Q 10 unit BIDDIAB JOAN Administration Insulin Human Lispro 0 unit 01/01/22 22:00 01/03/22 07:16 Insulin Lispro 100 Unit/Ml SUB-Q 3 unit ACHS JOAN Administration Protocol Ondansetron HCl 4 mg 01/01/22 19:33 01/02/22 22:48 Ondansetron 4 Mg/2 Ml Inj IV 4 mg Q8H PRN Administration Nausea And Vomiting Oxycodone/Acetaminophen 1 tab 01/01/22 19:33 Oxycodone /Acetaminophen 5-325mg Tab PO Q16H PRN Pain, Moderate (4-6) Sodium Chloride 10 ml 01/01/22 22:00 01/03/22 09:15 Sodium Chloride 0.9% 10 Ml Flush Syringe IV Not Given BID JOAN Sodium Chloride 10 ml 01/01/22 19:33 Sodium Chloride 0.9% 10 Ml Flush Syringe IV PRN PRN LINE FLUSH
[2022-01-03] MEDS ORDERED: MAGNESIUM HYDROXIDE (MOM) ORAL LIQD UDC PO SCH (15:44)
[2022-01-03] MEDS: oxyCODONE /ACETAMINOPHEN 5-325MG TAB PO PRN (21:05)
[2022-01-03] MEDS: guaiFENesin/CODEINE 100-10MG ORAL LIQD 5 ML PO PRN (21:05)
[2022-01-03] MEDS: SODIUM CHLORIDE 0.9% 1000 ML 1,000 ML IV SCH (22:14)
--- NOTE | 2022-01-04 08:10 | Progress Note ---
Assessment and Plan Assessment and plan: Conversations through the bilingual granddaughter at the bedside. Patient and the family verbalized understanding of instructions And plan of care, we will closely monitor, case management assisting with d ischarge planning Assessment and plan: --severe hyperglycemia/uncontrolled blood sugars; moderate control Accu-Chek sliding scale coverage changed to high scale, Hemoglobin A1c 7.4 long-acting insulin 70/30 10 units twice a day diabetic education, diabetic diet education Home health nurse at discharge for disease monitoring, -- Acute pyelonephritis/cultures gram-negative rods IV fluids, empiric antibiotics, follow sensitivities Continue Levaquin, follow-up urine and blood cultures --UTI (urinary tract infection) Urinalysis, IV fluid resuscitation therapy, IV antibiotic therapy, supportive care. Follow cultures and sensitivities --Volume depletion/dehydration Continue IV fluids, significantly improved Hold IV fluids encourage plenty of oral fluids --Acute kidney injury ([place]) with acute tubular necrosis (ATN) Resolved, renal function within normal limits Continue supportive care --History of vascular dementia Verbal prompting, verbal redirection, benzodiazepine therapy as clinically indicated. --Cerebral atherosclerosis Antiplatelet therapy, risk factor reduction, And supportive care. --Hyponatremia IV fluid resuscitation therapy, Monitor electrolytes . -- DVT prophylaxis SCD to bilateral lower extremities while in bed, --Advance care plannin min Disease education conducted, care plan discussed, diagnosis discussed, , prognosis discussed, patient is full code. Patient knowledges understanding and agreement with care plan, +30 minutes. --Preventive health care +30 minutes. Patient counseled regarding home safety measures, accident avoidance, , balanced diet, outpatient follow-up with primary care physician for all age and risk factor appropriate screening test. Closely monitor the patient and adjust management as needed Plan of care reviewed with the patient [through interpretation Through the bilingual family member ]and the family at the bedside 01/04/2022; urine cultures positive for gram-negative rods Patient is already on Levaquin, follow sensitivities And adjust antibiotics as needed Increase ambulation as tolerated Possible discharge in 1 to 2 days if stable Disposition; follow culture sensitivities and adjust antibiotics Discharge when medically stable History Interval history: I have seen and examined the patient at the bedside Patient's chart and medications reviewed Patient feels better sitting in the chair Able to walk in the room with help PT evaluation noted and appreciated Recommend home PT Vital signs noted Hospitalist Physical - Constitutional Vitals: Temp Pulse Resp BP Pulse Ox 98.9 F 72 20 158/54 100 01/03/22 21:11 01/03/22 21:11 01/03/22 21:11 01/03/22 21:11 01/03/22 21:11 General appearance: Present: mild distress, well-nourished, obese - EENT Eyes: Present: PERRL, EOM intact - Neck Neck: Present: supple, normal ROM - Respiratory Respiratory effort: normal Respiratory: bilateral: diminished, negative: rales, rhonchi, wheezing - Cardiovascular Rhythm: regular Heart Sounds: Present: S1 & S2 - Extremities Extremities: no ischemia, No edema - Abdominal General gastrointestinal: soft, non-tender, non-distended, normal bowel sounds - Integumentary Integumentary: Present: clear, warm - Psychiatric Psychiatric: appropriate mood/affect, cooperative - Neurologic Neurologic: CNII-XII intact, moves all extremities HEART Score - HEART Score Troponin: Troponin T < 0.010 ng/mL (0.00-0.029) 01/01/22 14:42 Results - Labs CBC & Chem 7: 01/01/22 14:42 01/03/22 05:04 Labs: Laboratory Last Values WBC 9.0 K/mm3 (4.5-11.0) 01/01/22 14:42 RBC 3.85 M/mm3 (3.65-5.03) 01/01/22 14:42 Hgb 11.7 gm/dl (10.1-14.3) 01/01/22 14:42 Hct 36.1 % (30.3-42.9) 01/01/22 14:42 MCV 94 fl (79-97) 01/01/22 14:42 MCH 30 pg (28-32) 01/01/22 14:42 MCHC 32 % (30-34) 01/01/22 14:42 RDW 15.0 % (13.2-15.2) 01/01/22 14:42 Plt Count 190 K/mm3 (140-440) 01/01/22 14:42 Add Manual Diff Complete 01/01/22 14:42 Total Counted 100 01/01/22 14:42 Seg 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 01/01/22 14:42 Seg Neuts % (Manual) 96.0 % (40.0-70.0) H 01/01/22 14:42 Band Neutrophils % 0 % 01/01/22 14:42 Lymphocytes % (Manual) 2.0 % (13.4-35.0) L 01/01/22 14:42 Reactive Lymphs % (Man) 0 % 01/01/22 14:42 Monocytes % (Manual) 1.0 % (0.0-7.3) 01/01/22 14:42 Eosinophils % (Manual) 0 % (0.0-4.3) 01/01/22 14:42 Basophils % (Manual) 0 % (0.0-1.8) 01/01/22 14:42 Metamyelocytes % 1.0 % 01/01/22 14:42 Myelocytes % 0 % 01/01/22 14:42 Promyelocytes % 0 % 01/01/22 14:42 Blast Cells % 0 % 01/01/22 14:42 Nucleated RBC % Not Reportable 01/01/22 14:42 Seg Neutrophils # Man 8.6 K/mm3 (1.8-7.7) H 01/01/22 14:42 Band Neutrophils # 0.0 K/mm3 01/01/22 14:42 Lymphocytes # (Manual) 0.2 K/mm3 (1.2-5.4) L 01/01/22 14:42 Abs React Lymphs (Man) 0.0 K/mm3 01/01/22 14:42 Monocytes # (Manual) 0.1 K/mm3 (0.0-0.8) 01/01/22 14:42 Eosinophils # (Manual) 0.0 K/mm3 (0.0-0.4) 01/01/22 14:42 Basophils # (Manual) 0.0 K/mm3 (0.0-0.1) 01/01/22 14:42 Metamyelocytes # 0.1 K/mm3 01/01/22 14:42 Myelocytes # 0.0 K/mm3 01/01/22 14:42 Promyelocytes # 0.0 K/mm3 01/01/22 14:42 Blast Cells # 0.0 K/mm3 01/01/22 14:42 WBC Morphology Not Reportable 01/01/22 14:42 Hypersegmented Neuts Not Reportable 01/01/22 14:42 Hyposegmented Neuts Few 01/01/22 14:42 Hypogranular Neuts Not Reportable 01/01/22 14:42 Smudge Cells Not Reportable 01/01/22 14:42 Toxic Granulation Not Reportable 01/01/22 14:42 Toxic Vacuolation Not Reportable 01/01/22 14:42 Dohle Bodies Not Reportable 01/01/22 14:42 Pelger-Huet Anomaly Not Reportable 01/01/22 14:42 Pearl Rods Not Reportable 01/01/22 14:42 Platelet Estimate Consistent w auto 01/01/22 14:42 Clumped Platelets Not Reportable 01/01/22 14:42 Plt Clumps, EDTA Not Reportable 01/01/22 14:42 Large Platelets Rare 01/01/22 14:42 Giant Platelets Not Reportable 01/01/22 14:42 Platelet Satelliting Not Reportable 01/01/22 14:42 Plt Morphology Comment Not Reportable 01/01/22 14:42 RBC Morphology Not Reportable 01/01/22 14:42 Dimorphic RBCs Not Reportable 01/01/22 14:42 Polychromasia Not Reportable 01/01/22 14:42 Hypochromasia Not Reportable 01/01/22 14:42 Poikilocytosis 1+ 01/01/22 14:42 Anisocytosis Not Reportable 01/01/22 14:42 Microcytosis Not Reportable 01/01/22 14:42 Macrocytosis Not Reportable 01/01/22 14:42 Spherocytes Few 01/01/22 14:42 Pappenheimer Bodies Not Reportable 01/01/22 14:42 Sickle Cells Not Reportable 01/01/22 14:42 Target Cells Not Reportable 01/01/22 14:42 Tear Drop Cells Not Reportable 01/01/22 14:42 Ovalocytes Not Reportable 01/01/22 14:42 Stomatocytes Few 01/01/22 14:42 Helmet Cells Not Reportable 01/01/22 14:42 [place] Bodies Not Reportable 01/01/22 14:42 [place] Rings Not Reportable 01/01/22 14:42 [place] Cells Not Reportable 01/01/22 14:42 Bite Cells Not Reportable 01/01/22 14:42 Crenated Cell Not Reportable 01/01/22 14:42 Elliptocytes Not Reportable 01/01/22 14:42 Acanthocytes (Spur) Not Reportable 01/01/22 14:42 Rouleaux Not Reportable 01/01/22 14:42 Hemoglobin C Crystals Not Reportable 01/01/22 14:42 Schistocytes Not Reportable 01/01/22 14:42 Malaria parasites Not Reportable 01/01/22 14:42 [place] Bodies Not Reportable 01/01/22 14:42 Hem Pathologist Commnt No 01/01/22 14:42 PT 14.7 Sec. (12.2-14.9) 01/01/22 14:42 INR 1.01 (0.87-1.13) 01/01/22 14:42 APTT 35.8 Sec. (24.2-36.6) 01/01/22 14:42 Sodium 133 mmol/L (137-145) L 01/03/22 05:04 Potassium 4.2 mmol/L (3.6-5.0) 01/03/22 05:04 Chloride 105.0 mmol/L (98-107) 01/03/22 05:04 Carbon Dioxide 17 mmol/L (22-30) L 01/03/22 05:04 Anion Gap 15 mmol/L 01/03/22 05:04 BUN 49 mg/dL (7-17) H 01/03/22 05:04 Creatinine 1.2 mg/dL (0.6-1.2) 01/03/22 05:04 Estimated GFR 44 ml/min 01/03/22 05:04 BUN/Creatinine Ratio 41 % 01/03/22 05:04 Glucose 205 mg/dL (65-100) H 01/03/22 05:04 POC Glucose 161 mg/dL (70-105) H 01/04/22 07:57 Hemoglobin A1c 7.4 % (4-6) H 01/03/22 05:04 Lactic Acid 0.80 mmol/L (0.7-2.0) 01/01/22 20:30 Calcium 8.9 mg/dL (8.4-10.2) 01/03/22 05:04 Magnesium 2.40 mg/dL (1.7-2.3) H 01/03/22 05:04 Total Bilirubin 0.90 mg/dL (0.1-1.2) 01/01/22 14:42 AST 91 units/L (5-40) H 01/01/22 14:42 ALT 45 units/L (7-56) 01/01/22 14:42 Alkaline Phosphatase 117 units/L (35-129) 01/01/22 14:42 Troponin T < 0.010 ng/mL (0.00-0.029) 01/01/22 14:42 Total Protein 6.4 g/dL (6.3-8.2) 01/01/22 14:42 Albumin 3.7 g/dL (3.9-5) L 01/01/22 14:42 Albumin/Globulin Ratio 1.4 % 01/01/22 14:42 Lipase 49 units/L (13-60) 01/01/22 14:42 Urine Color Yellow (Yellow) 01/01/22 16:43 Urine Turbidity Cloudy (Clear) 01/01/22 16:43 Urine pH 6.0 (5.0-7.0) 01/01/22 16:43 Ur Specific [place] 1.013 (1.003-1.030) 01/01/22 16:43 Urine Protein 30 mg/dl mg/dL (Negative) 01/01/22 16:43 Urine Glucose (UA) >=500 mg/dL (Negative) 01/01/22 16:43 Urine Ketones Neg mg/dL (Negative) 01/01/22 16:43 Urine Blood Lg (Negative) 01/01/22 16:43 Urine Nitrite Neg (Negative) 01/01/22 16:43 Urine Bilirubin Neg (Negative) 01/01/22 16:43 Urine Urobilinogen < 2.0 mg/dL (<2.0) 01/01/22 16:43 Ur Leukocyte Esterase Lg (Negative) 01/01/22 16:43 Urine WBC (Auto) > 182.0 /HPF (0.0-6.0) H 01/01/22 16:43 Urine RBC (Auto) 36.0 /HPF (0.0-6.0) 01/01/22 16:43 U Epithel Cells (Auto) 4.0 /HPF (0-13.0) 01/01/22 16:43 Urine Bacteria (Auto) 4+ /HPF (Negative) 01/01/22 16:43 Urine WBC Clumps 3+ /HPF 01/01/22 16:43 Urine Mucus Few /HPF 01/01/22 16:43 Microbiology: Microbiology 01/01/22 15:02 Peripheral/Venous Blood Culture - Preliminary NO GROWTH AFTER 48 HOURS 01/01/22 15:02 Peripheral/Venous Blood Culture - Preliminary NO GROWTH AFTER 48 HOURS [place]/IV: Voiding Method Toilet Active Medications - Current Medications Current Medications: Generic Name Dose Route Start Last Admin Trade Name Freq PRN Reason Stop Dose Admin Acetaminophen 650 mg 01/01/22 19:33 Acetaminophen 325 Mg Tab PO Q4H PRN Pain MILD(1-3)/Fever >100.5/WHITE Albuterol 2.5 mg 01/01/22 19:33 01/01/22 22:28 Albuterol 2.5 Mg/3 Ml Nebu IH 2.5 mg Q4HRT PRN Administration Shortness Of Breath Dextrose 0 ml 01/01/22 19:47 Dextrose 50% In Water (25gm) 50 Ml Syringe IV Q30MIN PRN Hypoglycemia Protocol Hydromorphone HCl 0.5 mg 01/01/22 19:33 01/02/22 23:40 Hydromorphone 0.5 Mg/0.5 Ml Inj IV 0.5 mg Q23H PRN Administration Pain , Severe (7-10) Sodium Chloride 1,000 mls @ 100 mls/hr 01/01/22 19:45 01/03/22 22:14 Nacl 0.9% 1000 Ml IV 100 mls/hr DIRECT JOAN Administration Levofloxacin/Dextrose 750 mg in 150 mls @ 100 mls/hr 01/01/22 22:00 01/03/22 23:35 Levaquin 750mg/150ml IV Infused Q48H JOAN Infusion Protocol Insulin Human Isoph/Insulin Regular 10 unit 01/02/22 18:00 01/03/22 16:33 Insulin Nph/Regular 70/30 Inj SUB-Q 10 unit BIDDIAB JOAN Administration Insulin Human Lispro 0 unit 01/01/22 22:00 01/03/22 22:33 Insulin Lispro 100 Unit/Ml SUB-Q 3 unit ACHS JOAN Administration Protocol Magnesium Hydroxide 30 ml 01/03/22 15:44 01/03/22 16:38 Magnesium Hydroxide (Mom) Oral Liqd Udc PO 30 ml ONCE JOAN Administration Ondansetron HCl 4 mg 01/01/22 19:33 01/02/22 22:48 Ondansetron 4 Mg/2 Ml Inj IV 4 mg Q8H PRN Administration Nausea And Vomiting Oxycodone/Acetaminophen 1 tab 01/01/22 19:33 01/03/22 21:05 Oxycodone /Acetaminophen 5-325mg Tab PO 1 tab Q16H PRN Administration Pain, Moderate (4-6) Pseudoephedrine/Acetam/Chlorphenir 10 ml 01/03/22 20:59 01/03/22 21:05 Guaifenesin/Codeine 100-10mg Oral Liqd 5 Ml PO 10 ml Q4H PRN Administration Cough Sodium Chloride 10 ml 01/01/22 22:00 01/03/22 21:06 Sodium Chloride 0.9% 10 Ml Flush Syringe IV 10 ml BID JOAN Administration Sodium Chloride 10 ml 01/01/22 19:33 Sodium Chloride 0.9% 10 Ml Flush Syringe IV PRN PRN LINE FLUSH Nutrition/Malnutrition Assess - Dietary Evaluation Nutrition/Malnutrition Findings: Nutrition Notes Start: 01/03/22 13:42 Freq: Status: Active Protocol: Document 01/03/22 13:42 RS (Rec: 01/03/22 14:33 RS [id number]) Nutrition Notes Need for Assessment generated from: MD Order,Education Initial or Follow up Assessment Current Diagnosis Acute Kidney Injury,Diabetes Other Pertinent Diagnosis Pyelonephritis, UTI, Vascular Dementia, Cerebral Atherosclerosis Current Diet Consistent CHO Labs/Tests Na:133 CO2:17 BUN:49 Glu:205 HgbA1c: 7.4 Pertinent Medications Reviewed Height 5 ft 3 in Weight 73.2 kg [place] Body Weight (kg) 52.27 BMI 28.5 Weight change and time frame MIRANDA wt hx Weight Status Appropriate Subjective/Other Information MD consult for DM diet education. Pt has vascular dementia along with language barrier. Diet education innapropriate at this time. Pt reports nausea along with diminished appetite before admission. Pt consuming 75% of meals and is on fluid restriction with strict I&Os. Percent of energy/protein needs met: 98%/94% GI Symptoms Nausea Current % PO Good (75-100%) Minimum of two criteria No physical signs of malnutrition #1 Nutrition Diagnosis No nutrition diagnosis at this time Is patient on ventilator? No Is Patient Ambulatory and/or Out of Bed Yes REE-([place]-ambulatory/OOB) [ [id number] [id number]] Calculation Used for Recommendations Rajesh Chapin Additional Notes Protein: 73-88g/day (1-1.2g/kg BW/day) Fluid needs: 1500mL or per MD Nutrition Intervention Anticipated Discharge Needs: Consistent CHO Revisit per MD consult or patient Sign Off request:
[2022-01-04] MEDS: INSULIN LISPRO 100 UNIT/ML SUB-Q SCH ×4 (08:56→22:01)
[2022-01-04] MEDS: INSULIN NPH/REGULAR 70/30 INJ SUB-Q SCH ×2 (08:57→17:14)
[2022-01-04] MEDS: SODIUM CHLORIDE 0.9% 1000 ML 1,000 ML IV SCH (09:09)
--- NOTE | 2022-01-04 10:33 | Electrocardiograph Report ---
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
[2022-01-04] MEDS ORDERED: FUROSEMIDE 40 MG/4 ML INJ IV SCH (17:22)
[2022-01-04] MEDS ORDERED: hydrALAZINE 20 MG/1 ML INJ IV PRN (22:05)
[2022-01-04] MEDS: guaiFENesin/CODEINE 100-10MG ORAL LIQD 5 ML PO PRN (23:22)
[2022-01-05] MEDS: INSULIN NPH/REGULAR 70/30 INJ SUB-Q SCH ×2 (08:50→17:07)
[2022-01-05] MEDS: INSULIN LISPRO 100 UNIT/ML SUB-Q SCH ×4 (08:51→21:46)
--- NOTE | 2022-01-05 14:05 | Progress Note ---
Assessment and Plan Assessment and plan: Assessment and plan: Conversations through the bilingual granddaughter at the bedside. Patient and the family verbalized understanding of instructions And plan of care, we will closely monitor, case management assisting with discharge planning --severe hyperglycemia/uncontrolled blood sugars; moderate control Accu-Chek sliding scale coverage changed to high scale, Hemoglobin A1c 7.4 long-acting insulin 70/30 10 units twice a day diabetic education, diabetic diet education Home health nurse at discharge for disease monitoring, -- Acute pyelonephritis/cultures gram-negative rods IV fluids, empiric antibiotics, follow sensitivities Continue Levaquin, follow-up urine and blood cultures --UTI (urinary tract infection) Urinalysis, IV fluid resuscitation therapy, IV antibiotic therapy, supportive care. Follow cultures and sensitivities --Volume depletion/dehydration Continue IV fluids, significantly improved Hold IV fluids encourage plenty of oral fluids --Acute kidney injury ([place]ICK[place]) with acute tubular necrosis (ATN) Resolved, renal function within normal limits Continue supportive care --History of vascular dementia Verbal prompting, verbal redirection, benzodiazepine therapy as clinically indicated. --Cerebral atherosclerosis Antiplatelet therapy, risk factor reduction, And supportive care. --Hyponatremia IV fluid resuscitation therapy, Monitor electrolytes . -- DVT prophylaxis SCD to bilateral lower extremities while in bed, --Advance care plannin min Disease education conducted, care plan discussed, diagnosis discussed, , prognosis discussed, patient is full code. Patient knowledges understanding and agreement with care plan, +30 minutes. --Preventive health care +30 minutes. Patient counseled regarding home safety measures, accident avoidance, , balanced diet, outpatient follow-up with primary care physician for all age and risk factor appropriate screening test. Closely monitor the patient and adjust management as needed Plan of care reviewed with the patient [through interpretation Through the bilingual family member ]and the family at the bedside 01/04/2022; urine cultures positive for gram-negative rods Patient is already on Levaquin, follow sensitivities And adjust antibiotics as needed Increase ambulation as tolerated Possible discharge in 1 to 2 days if stable 01/05/2022; still awaiting sensitivities, I checked with the microbiology Tech reported that most probably baby available tomorrow Disposition; follow culture sensitivities and adjust antibiotics Discharge when medically stable History Interval history: Patient with uncontrolled blood sugars and acute pyelonephritis Blood sugars reasonable control patient is receiving IV antibiotics for pyelonephritis and urinary tract infection urine cultures positive for gram-negative rods Waiting for culture sensitivities, Vital signs noted Awaiting sensitivities to adjust antibiotics Patient is anxious to go Hospitalist Physical - Constitutional Vitals: Temp Pulse Resp BP Pulse Ox 98.0 F 75 16 152/58 99 01/05/22 05:25 01/05/22 05:25 01/05/22 05:25 01/05/22 05:25 01/05/22 10:00 General appearance: Present: mild distress, well-nourished, obese - EENT Eyes: Present: PERRL, EOM intact - Neck Neck: Present: supple, normal ROM - Respiratory Respiratory effort: normal Respiratory: bilateral: diminished, negative: rales, rhonchi, wheezing - Cardiovascular Rhythm: regular Heart Sounds: Present: S1 & S2 - Extremities Extremities: no ischemia, No edema - Abdominal General gastrointestinal: soft, non-tender, non-distended, normal bowel sounds - Integumentary Integumentary: Present: clear, warm - Psychiatric Psychiatric: appropriate mood/affect, cooperative - Neurologic Neurologic: moves all extremities HEART Score - HEART Score Troponin: Troponin T < 0.010 ng/mL (0.00-0.029) 01/01/22 14:42 Results - Labs CBC & Chem 7: 01/01/22 14:42 01/03/22 05:04 Labs: Laboratory Last Values WBC 9.0 K/mm3 (4.5-11.0) 01/01/22 14:42 RBC 3.85 M/mm3 (3.65-5.03) 01/01/22 14:42 Hgb 11.7 gm/dl (10.1-14.3) 01/01/22 14:42 Hct 36.1 % (30.3-42.9) 01/01/22 14:42 MCV 94 fl (79-97) 01/01/22 14:42 MCH 30 pg (28-32) 01/01/22 14:42 MCHC 32 % (30-34) 01/01/22 14:42 RDW 15.0 % (13.2-15.2) 01/01/22 14:42 Plt Count 190 K/mm3 (140-440) 01/01/22 14:42 Add Manual Diff Complete 01/01/22 14:42 Total Counted 100 01/01/22 14:42 Seg Neutrophils % [employer] Administrator 01/01/22 14:42 Seg Neuts % (Manual) 96.0 % (40.0-70.0) H 01/01/22 14:42 Band Neutrophils % 0 % 01/01/22 14:42 Lymphocytes % (Manual) 2.0 % (13.4-35.0) L 01/01/22 14:42 Reactive Lymphs % (Man) 0 % 01/01/22 14:42 Monocytes % (Manual) 1.0 % (0.0-7.3) 01/01/22 14:42 Eosinophils % (Manual) 0 % (0.0-4.3) 01/01/22 14:42 Basophils % (Manual) 0 % (0.0-1.8) 01/01/22 14:42 Metamyelocytes % 1.0 % 01/01/22 14:42 Myelocytes % 0 % 01/01/22 14:42 Promyelocytes % 0 % 01/01/22 14:42 Blast Cells % 0 % 01/01/22 14:42 Nucleated RBC % Not Reportable 01/01/22 14:42 Seg Neutrophils # Man 8.6 K/mm3 (1.8-7.7) H 01/01/22 14:42 Band Neutrophils # 0.0 K/mm3 01/01/22 14:42 Lymphocytes # (Manual) 0.2 K/mm3 (1.2-5.4) L 01/01/22 14:42 Abs React Lymphs (Man) 0.0 K/mm3 01/01/22 14:42 Monocytes # (Manual) 0.1 K/mm3 (0.0-0.8) 01/01/22 14:42 Eosinophils # (Manual) 0.0 K/mm3 (0.0-0.4) 01/01/22 14:42 Basophils # (Manual) 0.0 K/mm3 (0.0-0.1) 01/01/22 14:42 Metamyelocytes # 0.1 K/mm3 01/01/22 14:42 Myelocytes # 0.0 K/mm3 01/01/22 14:42 Promyelocytes # 0.0 K/mm3 01/01/22 14:42 Blast Cells # 0.0 K/mm3 01/01/22 14:42 WBC Morphology Not Reportable 01/01/22 14:42 Hypersegmented Neuts Not Reportable 01/01/22 14:42 Hyposegmented Neuts Few 01/01/22 14:42 Hypogranular Neuts Not Reportable 01/01/22 14:42 Smudge Cells Not Reportable 01/01/22 14:42 Toxic Granulation Not Reportable 01/01/22 14:42 Toxic Vacuolation Not Reportable 01/01/22 14:42 Dohle Bodies Not Reportable 01/01/22 14:42 Pelger-Huet Anomaly Not Reportable 01/01/22 14:42 Pearl Rods Not Reportable 01/01/22 14:42 Platelet Estimate Consistent w auto 01/01/22 14:42 Clumped Platelets Not Reportable 01/01/22 14:42 Plt Clumps, EDTA Not Reportable 01/01/22 14:42 Large Platelets Rare 01/01/22 14:42 Giant Platelets Not Reportable 01/01/22 14:42 Platelet Satelliting Not Reportable 01/01/22 14:42 Plt Morphology Comment Not Reportable 01/01/22 14:42 RBC Morphology Not Reportable 01/01/22 14:42 Dimorphic RBCs Not Reportable 01/01/22 14:42 Polychromasia Not Reportable 01/01/22 14:42 Hypochromasia Not Reportable 01/01/22 14:42 Poikilocytosis 1+ 01/01/22 14:42 Anisocytosis Not Reportable 01/01/22 14:42 Microcytosis Not Reportable 01/01/22 14:42 Macrocytosis Not Reportable 01/01/22 14:42 Spherocytes Few 01/01/22 14:42 Pappenheimer Bodies Not Reportable 01/01/22 14:42 Sickle Cells Not Reportable 01/01/22 14:42 Target Cells Not Reportable 01/01/22 14:42 Tear Drop Cells Not Reportable 01/01/22 14:42 Ovalocytes Not Reportable 01/01/22 14:42 Stomatocytes Few 01/01/22 14:42 Helmet Cells Not Reportable 01/01/22 14:42 [employer] Bodies Not Reportable 01/01/22 14:42 [place] Rings Not Reportable 01/01/22 14:42 Sims Cells Not Reportable 01/01/22 14:42 Bite Cells Not Reportable 01/01/22 14:42 Crenated Cell Not Reportable 01/01/22 14:42 Elliptocytes Not Reportable 01/01/22 14:42 Acanthocytes (Spur) Not Reportable 01/01/22 14:42 Rouleaux Not Reportable 01/01/22 14:42 Hemoglobin C Crystals Not Reportable 01/01/22 14:42 Schistocytes Not Reportable 01/01/22 14:42 Malaria parasites Not Reportable 01/01/22 14:42 Nicholas Bodies Not Reportable 01/01/22 14:42 Hem Pathologist Commnt No 01/01/22 14:42 PT 14.7 Sec. (12.2-14.9) 01/01/22 14:42 INR 1.01 (0.87-1.13) 01/01/22 14:42 APTT 35.8 Sec. (24.2-36.6) 01/01/22 14:42 Sodium 133 mmol/L (137-145) L 01/03/22 05:04 Potassium 4.2 mmol/L (3.6-5.0) 01/03/22 05:04 Chloride 105.0 mmol/L (98-107) 01/03/22 05:04 Carbon Dioxide 17 mmol/L (22-30) L 01/03/22 05:04 Anion Gap 15 mmol/L 01/03/22 05:04 BUN 49 mg/dL (7-17) H 01/03/22 05:04 Creatinine 1.2 mg/dL (0.6-1.2) 01/03/22 05:04 Estimated GFR 44 ml/min 01/03/22 05:04 BUN/Creatinine Ratio 41 % 01/03/22 05:04 Glucose 205 mg/dL (65-100) H 01/03/22 05:04 POC Glucose 131 mg/dL (70-105) H 01/05/22 11:31 Hemoglobin A1c 7.4 % (4-6) H 01/03/22 05:04 Lactic Acid 0.80 mmol/L (0.7-2.0) 01/01/22 20:30 Calcium 8.9 mg/dL (8.4-10.2) 01/03/22 05:04 Magnesium 2.40 mg/dL (1.7-2.3) H 01/03/22 05:04 Total Bilirubin 0.90 mg/dL (0.1-1.2) 01/01/22 14:42 AST 91 units/L (5-40) H 01/01/22 14:42 ALT 45 units/L (7-56) 01/01/22 14:42 Alkaline Phosphatase 117 units/L (35-129) 01/01/22 14:42 Troponin T < 0.010 ng/mL (0.00-0.029) 01/01/22 14:42 Total Protein 6.4 g/dL (6.3-8.2) 01/01/22 14:42 Albumin 3.7 g/dL (3.9-5) L 01/01/22 14:42 Albumin/Globulin Ratio 1.4 % 01/01/22 14:42 Lipase 49 units/L (13-60) 01/01/22 14:42 Urine Color Yellow (Yellow) 01/01/22 16:43 Urine Turbidity Cloudy (Clear) 01/01/22 16:43 Urine pH 6.0 (5.0-7.0) 01/01/22 16:43 Ur Specific [place] 1.013 (1.003-1.030) 01/01/22 16:43 Urine Protein 30 mg/dl mg/dL (Negative) 01/01/22 16:43 Urine Glucose (UA) >=500 mg/dL (Negative) 01/01/22 16:43 Urine Ketones Neg mg/dL (Negative) 01/01/22 16:43 Urine Blood Lg (Negative) 01/01/22 16:43 Urine Nitrite Neg (Negative) 01/01/22 16:43 Urine Bilirubin Neg (Negative) 01/01/22 16:43 Urine Urobilinogen < 2.0 mg/dL (<2.0) 01/01/22 16:43 Ur Leukocyte Esterase Lg (Negative) 01/01/22 16:43 Urine WBC (Auto) > 182.0 /HPF (0.0-6.0) H 01/01/22 16:43 Urine RBC (Auto) 36.0 /HPF (0.0-6.0) 01/01/22 16:43 U Epithel Cells (Auto) 4.0 /HPF (0-13.0) 01/01/22 16:43 Urine Bacteria (Auto) 4+ /HPF (Negative) 01/01/22 16:43 Urine WBC Clumps 3+ /HPF 01/01/22 16:43 Urine Mucus Few /HPF 01/01/22 16:43 Microbiology: Microbiology 01/01/22 15:02 Peripheral/Venous Blood Culture - Preliminary NO GROWTH AFTER 72 HOURS 01/01/22 15:02 Peripheral/Venous Blood Culture - Preliminary NO GROWTH AFTER 72 HOURS 01/03/22 04:40 Urine,Clean Catch Urine Culture - Preliminary Gram Negative Rasheed Inman/IV: Voiding Method Toilet Active Medications - Current Medications Current Medications: Generic Name Dose Route Start Last Admin Trade Name Freq PRN Reason Stop Dose Admin Acetaminophen 650 mg 01/01/22 19:33 Acetaminophen 325 Mg Tab PO Q4H PRN Pain MILD(1-3)/Fever >100.5/WHITE Albuterol 2.5 mg 01/01/22 19:33 01/01/22 22:28 Albuterol 2.5 Mg/3 Ml Nebu IH 2.5 mg Q4HRT PRN Administration Shortness Of Breath Dextrose 0 ml 01/01/22 19:47 Dextrose 50% In Water (25gm) 50 Ml Syringe IV Q30MIN PRN Hypoglycemia Protocol Hydralazine HCl 10 mg 01/04/22 22:05 01/04/22 23:23 Hydralazine 20 Mg/1 Ml Inj IV 10 mg Q6H PRN Administration Blood Pressure Hydromorphone HCl 0.5 mg 01/01/22 19:33 01/02/22 23:40 Hydromorphone 0.5 Mg/0.5 Ml Inj IV 0.5 mg Q23H PRN Administration Pain , Severe (7-10) Sodium Chloride 1,000 mls @ 100 mls/hr 01/01/22 19:45 01/04/22 09:09 Nacl 0.9% 1000 Ml IV 100 mls/hr DIRECT JOAN Administration Levofloxacin/Dextrose 750 mg in 150 mls @ 100 mls/hr 01/01/22 22:00 01/03/22 23:35 Levaquin 750mg/150ml IV 01/10/22 23:59 Infused Q48H JOAN Infusion Protocol Insulin Human Isoph/Insulin Regular 10 unit 01/02/22 18:00 01/05/22 08:50 Insulin Nph/Regular 70/30 Inj SUB-Q 10 unit BIDDIAB JOAN Administration Insulin Human Lispro 0 unit 01/01/22 22:00 01/05/22 12:16 Insulin Lispro 100 Unit/Ml SUB-Q Not Given ACHS JOAN Protocol Magnesium Hydroxide 30 ml 01/03/22 15:44 01/03/22 16:38 Magnesium Hydroxide (Mom) Oral Liqd Udc PO 30 ml ONCE JOAN Administration Ondansetron HCl 4 mg 01/01/22 19:33 01/02/22 22:48 Ondansetron 4 Mg/2 Ml Inj IV 4 mg Q8H PRN Administration Nausea And Vomiting Oxycodone/Acetaminophen 1 tab 01/01/22 19:33 01/03/22 21:05 Oxycodone /Acetaminophen 5-325mg Tab PO 1 tab Q16H PRN Administration Pain, Moderate (4-6) Pseudoephedrine/Acetam/Chlorphenir 10 ml 01/03/22 20:59 01/04/22 23:22 Guaifenesin/Codeine 100-10mg Oral Liqd 5 Ml PO 10 ml Q4H PRN Administration Cough Sodium Chloride 10 ml 01/01/22 22:00 01/05/22 12:17 Sodium Chloride 0.9% 10 Ml Flush Syringe IV 10 ml BID JOAN Administration Sodium Chloride 10 ml 01/01/22 19:33 Sodium Chloride 0.9% 10 Ml Flush Syringe IV PRN PRN LINE FLUSH Nutrition/Malnutrition Assess - Dietary Evaluation Nutrition/Malnutrition Findings: Nutrition Notes Start: 01/03/22 13:42 Freq: Status: Active Protocol: Document 01/03/22 13:42 RS (Rec: 01/03/22 14:33 RS [id number]) Nutrition Notes Need for Assessment generated from: MD Order,Education Initial or Follow up Assessment Current Diagnosis Acute Kidney Injury,Diabetes Other Pertinent Diagnosis Pyelonephritis, UTI, Vascular Dementia, Cerebral Atherosclerosis Current Diet Consistent CHO Labs/Tests Na:133 CO2:17 BUN:49 Glu:205 HgbA1c: 7.4 Pertinent Medications Reviewed Height 5 ft 3 in Weight 73.2 kg [place] Body Weight (kg) 52.27 BMI 28.5 Weight change and time frame MIRANDA wt hx Weight Status Appropriate Subjective/Other Information MD consult for DM diet education. Pt has vascular dementia along with language barrier. Diet education innapropriate at this time. Pt reports nausea along with diminished appetite before admission. Pt consuming 75% of meals and is on fluid restriction with strict I&Os. Percent of energy/protein needs met: 98%/94% GI Symptoms Nausea Current % PO Good (75-100%) Minimum of two criteria No physical signs of malnutrition #1 Nutrition Diagnosis No nutrition diagnosis at this time Is patient on ventilator? No Is Patient Ambulatory and/or Out of Bed Yes REE-([facility]-ambulatory/OOB) [ [id number] [id number]] Calculation Used for Recommendations [facility] Additional Notes Protein: 73-88g/day (1-1.2g/kg BW/day) Fluid needs: 1500mL or per MD Nutrition Intervention Anticipated Discharge Needs: Consistent CHO Revisit per MD consult or patient Sign Off request:
--- NOTE | 2022-01-06 07:34 | Discharge Summary ---
Providers - Providers Date of Admission: 01/01/22 19:33 Date of discharge: 01/06/22 Attending physician: MERLYN WILLS 01/02/22 16:15 Physical Therapy Evaluation and Treat [CONS] Routine Comment: Reason For Exam: History of fall/evaluate and treat/DC needs 01/02/22 16:34 Consult to Dietitian/Nutrition [CONS] Routine Physician Instructions: Reason For Exam: Diabetic diet education Reason for Consult: Diet education 01/03/22 15:22 Physical Therapy Evaluation and Treat [CONS] Routine Comment: Reason For Exam: Unsteady gait/fall, evaluate and treat/DC needs Primary care physician: [employer] PROFESSOR Hospitalization Condition: Stable Disposition: 30 STILL A PATIENT Exam - Constitutional Vitals: Temp Pulse Resp BP Pulse Ox 98.7 F 71 16 140/48 95 01/06/22 04:16 01/06/22 04:16 01/06/22 04:16 01/06/22 04:16 01/06/22 04:16 Plan Follow up with: PRIMARY CAREMD [Primary Care Provider] - 3-5 Days
[2022-01-06] MEDS: INSULIN LISPRO 100 UNIT/ML SUB-Q SCH ×4 (09:44→22:01)
[2022-01-06] MEDS: INSULIN NPH/REGULAR 70/30 INJ SUB-Q SCH ×2 (09:50→16:32)
--- NOTE | 2022-01-06 10:34 | Progress Note ---
Assessment and Plan Assessment and plan: Conversations through the bilingual granddaughter at the bedside. --Sepsis due to ESBL infection; DC Levaquin, start ertapenem, ID consult Contact isolation -- Acute pyelonephritis/cultures positive for ESBL IV fluids, DC Levaquin started ertapenem Follow ID creative consultant recommendations --UTI (urinary tract infection) Received empiric antibiotics, ESBL positive Change to ertapenem, requested ID consult --severe hyperglycemia/moderate control Accu-Chek sliding scale coverage changed to high scale, Hemoglobin A1c 7.4 long-acting insulin 70/30 10 units twice a day diabetic education, diabetic diet education Home health nurse at discharge for disease monitoring, --Volume depletion/dehydration Continue IV fluids, significantly improved Hold IV fluids encourage plenty of oral fluids --Acute kidney injury ([place]ICK[place]) with acute tubular necrosis (ATN) Resolved, renal function within normal limits Continue supportive care --History of vascular dementia Verbal prompting, verbal redirection, benzodiazepine therapy as clinically indicated. --Cerebral atherosclerosis Antiplatelet therapy, risk factor reduction, And supportive care. --Hyponatremia IV fluid resuscitation therapy, Monitor electrolytes . -- DVT prophylaxis SCD to bilateral lower extremities while in bed, --Advance care plannin min Disease education conducted, care plan discussed, diagnosis discussed, , prognosis discussed, patient is full code. Patient knowledges understanding and agreement with care plan, +30 minutes. --Preventive health care +30 minutes. Patient counseled regarding home safety measures, accident avoidance, , balanced diet, outpatient follow-up with primary care physician for all age and risk factor appropriate screening test. Closely monitor the patient and adjust management as needed Plan of care reviewed with the patient [through interpretation Through the bilingual family member ]and the family at the bedside 01/04/2022; urine cultures positive for gram-negative rods Patient is already on Levaquin, follow sensitivities And adjust antibiotics as needed Increase ambulation as tolerated Possible discharge in 1 to 2 days if stable 01/06/2022; urine cultures ESBL positive DC Levaquin start ertapenem, contact isolation ID consulted Disposition; follow ID recommendations Discharge in 1 to 2 days if stable History Interval history: I have seen and examined the patient at the bedside Patient's chart and medications reviewed Patient feels better no new complaints Vital signs noted Urine cultures positive for ESBL Patient is anxious to go home Hospitalist Physical - Constitutional Vitals: Temp Pulse Resp BP Pulse Ox 98.7 F 71 16 140/48 95 01/06/22 04:16 01/06/22 04:16 01/06/22 04:16 01/06/22 04:16 01/06/22 04:16 General appearance: Present: mild distress, well-nourished, obese - EENT Eyes: Present: PERRL, EOM intact - Neck Neck: Present: supple, normal ROM - Respiratory Respiratory effort: normal Respiratory: bilateral: diminished, negative: rales, rhonchi, wheezing - Cardiovascular Rhythm: regular Heart Sounds: Present: S1 & S2 - Extremities Extremities: no ischemia, No edema - Abdominal General gastrointestinal: soft, non-tender, non-distended, normal bowel sounds - Integumentary Integumentary: Present: clear, warm - Psychiatric Psychiatric: appropriate mood/affect, cooperative - Neurologic Neurologic: CNII-XII intact, moves all extremities HEART Score - HEART Score Troponin: Troponin T < 0.010 ng/mL (0.00-0.029) 01/01/22 14:42 Results - Labs CBC & Chem 7: 01/01/22 14:42 01/03/22 05:04 Labs: Laboratory Last Values WBC 9.0 K/mm3 (4.5-11.0) 01/01/22 14:42 RBC 3.85 M/mm3 (3.65-5.03) 01/01/22 14:42 Hgb 11.7 gm/dl (10.1-14.3) 01/01/22 14:42 Hct 36.1 % (30.3-42.9) 01/01/22 14:42 MCV 94 fl (79-97) 01/01/22 14:42 MCH 30 pg (28-32) 01/01/22 14:42 MCHC 32 % (30-34) 01/01/22 14:42 RDW 15.0 % (13.2-15.2) 01/01/22 14:42 Plt Count 190 K/mm3 (140-440) 01/01/22 14:42 Add Manual Diff Complete 01/01/22 14:42 Total Counted 100 01/01/22 14:42 Seg Neutrophils % Second Class Welder 01/01/22 14:42 Seg Neuts % (Manual) 96.0 % (40.0-70.0) H 01/01/22 14:42 Band Neutrophils % 0 % 01/01/22 14:42 Lymphocytes % (Manual) 2.0 % (13.4-35.0) L 01/01/22 14:42 Reactive Lymphs % (Man) 0 % 01/01/22 14:42 Monocytes % (Manual) 1.0 % (0.0-7.3) 01/01/22 14:42 Eosinophils % (Manual) 0 % (0.0-4.3) 01/01/22 14:42 Basophils % (Manual) 0 % (0.0-1.8) 01/01/22 14:42 Metamyelocytes % 1.0 % 01/01/22 14:42 Myelocytes % 0 % 01/01/22 14:42 Promyelocytes % 0 % 01/01/22 14:42 Blast Cells % 0 % 01/01/22 14:42 Nucleated RBC % Not Reportable 01/01/22 14:42 Seg Neutrophils # Man 8.6 K/mm3 (1.8-7.7) H 01/01/22 14:42 Band Neutrophils # 0.0 K/mm3 01/01/22 14:42 Lymphocytes # (Manual) 0.2 K/mm3 (1.2-5.4) L 01/01/22 14:42 Abs React Lymphs (Man) 0.0 K/mm3 01/01/22 14:42 Monocytes # (Manual) 0.1 K/mm3 (0.0-0.8) 01/01/22 14:42 Eosinophils # (Manual) 0.0 K/mm3 (0.0-0.4) 01/01/22 14:42 Basophils # (Manual) 0.0 K/mm3 (0.0-0.1) 01/01/22 14:42 Metamyelocytes # 0.1 K/mm3 01/01/22 14:42 Myelocytes # 0.0 K/mm3 01/01/22 14:42 Promyelocytes # 0.0 K/mm3 01/01/22 14:42 Blast Cells # 0.0 K/mm3 01/01/22 14:42 WBC Morphology Not Reportable 01/01/22 14:42 Hypersegmented Neuts Not Reportable 01/01/22 14:42 Hyposegmented Neuts Few 01/01/22 14:42 Hypogranular Neuts Not Reportable 01/01/22 14:42 Smudge Cells Not Reportable 01/01/22 14:42 Toxic Granulation Not Reportable 01/01/22 14:42 Toxic Vacuolation Not Reportable 01/01/22 14:42 Dohle Bodies Not Reportable 01/01/22 14:42 Pelger-Huet Anomaly Not Reportable 01/01/22 14:42 Pearl Rods Not Reportable 01/01/22 14:42 Platelet Estimate Consistent w auto 01/01/22 14:42 Clumped Platelets Not Reportable 01/01/22 14:42 Plt Clumps, EDTA Not Reportable 01/01/22 14:42 Large Platelets Rare 01/01/22 14:42 Giant Platelets Not Reportable 01/01/22 14:42 Platelet Satelliting Not Reportable 01/01/22 14:42 Plt Morphology Comment Not Reportable 01/01/22 14:42 RBC Morphology Not Reportable 01/01/22 14:42 Dimorphic RBCs Not Reportable 01/01/22 14:42 Polychromasia Not Reportable 01/01/22 14:42 Hypochromasia Not Reportable 01/01/22 14:42 Poikilocytosis 1+ 01/01/22 14:42 Anisocytosis Not Reportable 01/01/22 14:42 Microcytosis Not Reportable 01/01/22 14:42 Macrocytosis Not Reportable 01/01/22 14:42 Spherocytes Few 01/01/22 14:42 Pappenheimer Bodies Not Reportable 01/01/22 14:42 Sickle Cells Not Reportable 01/01/22 14:42 Target Cells Not Reportable 01/01/22 14:42 Tear Drop Cells Not Reportable 01/01/22 14:42 Ovalocytes Not Reportable 01/01/22 14:42 Stomatocytes Few 01/01/22 14:42 Helmet Cells Not Reportable 01/01/22 14:42 Dubose-Endeavor Bodies Not Reportable 01/01/22 14:42 Tresckow Rings Not Reportable 01/01/22 14:42 Kiefer Cells Not Reportable 01/01/22 14:42 Bite Cells Not Reportable 01/01/22 14:42 Crenated Cell Not Reportable 01/01/22 14:42 Elliptocytes Not Reportable 01/01/22 14:42 Acanthocytes (Spur) Not Reportable 01/01/22 14:42 Rouleaux Not Reportable 01/01/22 14:42 Hemoglobin C Crystals Not Reportable 01/01/22 14:42 Schistocytes Not Reportable 01/01/22 14:42 Malaria parasites Not Reportable 01/01/22 14:42 Nicholas Bodies Not Reportable 01/01/22 14:42 Hem Pathologist Commnt No 01/01/22 14:42 PT 14.7 Sec. (12.2-14.9) 01/01/22 14:42 INR 1.01 (0.87-1.13) 01/01/22 14:42 APTT 35.8 Sec. (24.2-36.6) 01/01/22 14:42 Sodium 133 mmol/L (137-145) L 01/03/22 05:04 Potassium 4.2 mmol/L (3.6-5.0) 01/03/22 05:04 Chloride 105.0 mmol/L (98-107) 01/03/22 05:04 Carbon Dioxide 17 mmol/L (22-30) L 01/03/22 05:04 Anion Gap 15 mmol/L 01/03/22 05:04 BUN 49 mg/dL (7-17) H 01/03/22 05:04 Creatinine 1.2 mg/dL (0.6-1.2) 01/03/22 05:04 Estimated GFR 44 ml/min 01/03/22 05:04 BUN/Creatinine Ratio 41 % 01/03/22 05:04 Glucose 205 mg/dL (65-100) H 01/03/22 05:04 POC Glucose 132 mg/dL (70-105) H 01/06/22 07:52 Hemoglobin A1c 7.4 % (4-6) H 01/03/22 05:04 Lactic Acid 0.80 mmol/L (0.7-2.0) 01/01/22 20:30 Calcium 8.9 mg/dL (8.4-10.2) 01/03/22 05:04 Magnesium 2.40 mg/dL (1.7-2.3) H 01/03/22 05:04 Total Bilirubin 0.90 mg/dL (0.1-1.2) 01/01/22 14:42 AST 91 units/L (5-40) H 01/01/22 14:42 ALT 45 units/L (7-56) 01/01/22 14:42 Alkaline Phosphatase 117 units/L (35-129) 01/01/22 14:42 Troponin T < 0.010 ng/mL (0.00-0.029) 01/01/22 14:42 Total Protein 6.4 g/dL (6.3-8.2) 01/01/22 14:42 Albumin 3.7 g/dL (3.9-5) L 01/01/22 14:42 Albumin/Globulin Ratio 1.4 % 01/01/22 14:42 Lipase 49 units/L (13-60) 01/01/22 14:42 Urine Color Yellow (Yellow) 01/01/22 16:43 Urine Turbidity Cloudy (Clear) 01/01/22 16:43 Urine pH 6.0 (5.0-7.0) 01/01/22 16:43 Ur Specific Wolverine 1.013 (1.003-1.030) 01/01/22 16:43 Urine Protein 30 mg/dl mg/dL (Negative) 01/01/22 16:43 Urine Glucose (UA) >=500 mg/dL (Negative) 01/01/22 16:43 Urine Ketones Neg mg/dL (Negative) 01/01/22 16:43 Urine Blood Lg (Negative) 01/01/22 16:43 Urine Nitrite Neg (Negative) 01/01/22 16:43 Urine Bilirubin Neg (Negative) 01/01/22 16:43 Urine Urobilinogen < 2.0 mg/dL (<2.0) 01/01/22 16:43 Ur Leukocyte Esterase Lg (Negative) 01/01/22 16:43 Urine WBC (Auto) > 182.0 /HPF (0.0-6.0) H 01/01/22 16:43 Urine RBC (Auto) 36.0 /HPF (0.0-6.0) 01/01/22 16:43 U Epithel Cells (Auto) 4.0 /HPF (0-13.0) 01/01/22 16:43 Urine Bacteria (Auto) 4+ /HPF (Negative) 01/01/22 16:43 Urine WBC Clumps 3+ /HPF 01/01/22 16:43 Urine Mucus Few /HPF 01/01/22 16:43 Microbiology: Microbiology 01/03/22 04:40 Urine,Clean Catch Urine Culture - Preliminary Escherichia Coli 01/01/22 15:02 Peripheral/Venous Blood Culture - Preliminary NO GROWTH AFTER 4 DAYS 01/01/22 15:02 Peripheral/Venous Blood Culture - Preliminary NO GROWTH AFTER 4 DAYS Inman/IV: Voiding Method Toilet Active Medications - Current Medications Current Medications: Generic Name Dose Route Start Last Admin Trade Name Freq PRN Reason Stop Dose Admin Acetaminophen 650 mg 01/01/22 19:33 Acetaminophen 325 Mg Tab PO Q4H PRN Pain MILD(1-3)/Fever >100.5/WHITE Albuterol 2.5 mg 01/01/22 19:33 01/01/22 22:28 Albuterol 2.5 Mg/3 Ml Nebu IH 2.5 mg Q4HRT PRN Administration Shortness Of Breath Dextrose 0 ml 01/01/22 19:47 Dextrose 50% In Water (25gm) 50 Ml Syringe IV Q30MIN PRN Hypoglycemia Protocol Hydralazine HCl 10 mg 01/04/22 22:05 01/04/22 23:23 Hydralazine 20 Mg/1 Ml Inj IV 10 mg Q6H PRN Administration Blood Pressure Hydromorphone HCl 0.5 mg 01/01/22 19:33 01/02/22 23:40 Hydromorphone 0.5 Mg/0.5 Ml Inj IV 0.5 mg Q23H PRN Administration Pain , Severe (7-10) Sodium Chloride 1,000 mls @ 100 mls/hr 01/01/22 19:45 01/04/22 09:09 Nacl 0.9% 1000 Ml IV 100 mls/hr DIRECT JOAN Administration Ertapenem 1 gm/ Sodium 50 mls @ 100 mls/hr 01/06/22 11:00 Chloride IV QDAY JOAN Insulin Human Isoph/Insulin Regular 10 unit 01/02/22 18:00 01/06/22 09:50 Insulin Nph/Regular 70/30 Inj SUB-Q 10 unit BIDDIAB JOAN Administration Insulin Human Lispro 0 unit 01/01/22 22:00 01/06/22 09:44 Insulin Lispro 100 Unit/Ml SUB-Q Not Given ACHS JOAN Protocol Magnesium Hydroxide 30 ml 01/03/22 15:44 01/03/22 16:38 Magnesium Hydroxide (Mom) Oral Liqd Udc PO 30 ml ONCE JOAN Administration Ondansetron HCl 4 mg 01/01/22 19:33 01/02/22 22:48 Ondansetron 4 Mg/2 Ml Inj IV 4 mg Q8H PRN Administration Nausea And Vomiting Oxycodone/Acetaminophen 1 tab 01/01/22 19:33 01/03/22 21:05 Oxycodone /Acetaminophen 5-325mg Tab PO 1 tab Q16H PRN Administration Pain, Moderate (4-6) Pseudoephedrine/Acetam/Chlorphenir 10 ml 01/03/22 20:59 01/04/22 23:22 Guaifenesin/Codeine 100-10mg Oral Liqd 5 Ml PO 10 ml Q4H PRN Administration Cough Sodium Chloride 10 ml 01/01/22 22:00 01/06/22 09:50 Sodium Chloride 0.9% 10 Ml Flush Syringe IV 10 ml BID JOAN Administration Sodium Chloride 10 ml 01/01/22 19:33 Sodium Chloride 0.9% 10 Ml Flush Syringe IV PRN PRN LINE FLUSH Nutrition/Malnutrition Assess - Dietary Evaluation Nutrition/Malnutrition Findings: Nutrition Notes Start: 01/03/22 13:42 Freq: Status: Active Protocol: Document 01/03/22 13:42 RS (Rec: 01/03/22 14:33 RS [id number]) Nutrition Notes Need for Assessment generated from: MD Order,Education Initial or Follow up Assessment Current Diagnosis Acute Kidney Injury,Diabetes Other Pertinent Diagnosis Pyelonephritis, UTI, Vascular Dementia, Cerebral Atherosclerosis Current Diet Consistent CHO Labs/Tests Na:133 CO2:17 BUN:49 Glu:205 HgbA1c: 7.4 Pertinent Medications Reviewed Height 5 ft 3 in Weight 73.2 kg [place] Body Weight (kg) 52.27 BMI 28.5 Weight change and time frame MIRANDA wt hx Weight Status Appropriate Subjective/Other Information MD consult for DM diet education. Pt has vascular dementia along with language barrier. Diet education innapropriate at this time. Pt reports nausea along with diminished appetite before admission. Pt consuming 75% of meals and is on fluid restriction with strict I&Os. Percent of energy/protein needs met: 98%/94% GI Symptoms Nausea Current % PO Good (75-100%) Minimum of two criteria No physical signs of malnutrition #1 Nutrition Diagnosis No nutrition diagnosis at this time Is patient on ventilator? No Is Patient Ambulatory and/or Out of Bed Yes REE-([facility]-ambulatory/OOB) [ [id number] [id number]] Calculation Used for Recommendations [facility] Additional Notes Protein: 73-88g/day (1-1.2g/kg BW/day) Fluid needs: 1500mL or per MD Nutrition Intervention Anticipated Discharge Needs: Consistent CHO Revisit per MD consult or patient Sign Off request:
[2022-01-06] MEDS: ERTAPENEM 1 GM in SODIUM CHLORIDE 0.9% 50 ML IV SCH (12:38)
--- NOTE | 2022-01-06 21:24 | Consultation ---
History of Present Illness - Reason for Consult Consult date: 01/06/22 - History of Present Illness 71-year-old female past medical history hypertension, diabetes, vascular dementia presented to hospital complaining of feeling unwell. This began 2 days prior to admission and was worsening since onset. She complains of fevers, fatigue, myalgias, abdominal pain. On admission she was found to have UTI with pyelonephritis. Cultures have since grown ESBL, as such we are consulted. Afebrile since admission with a white count of 9. eGFR 44 urine cultures with ESBL E. coli Imaging personally reviewed: CT abdomen pelvis: UTI Review of Systems: Bold if positive, otherwise negative General: fevers, chills, rigors HEENT: visual disturbance, diplopia, eye pain Respiratory: cough, sputum, hemoptysis, shortness of breath Cardiovascular: chest pain, syncope Gastrointestinal: nausea, vomiting, diarrhea, abdominal pain Genitourinary: dysuria, hematuria, flank pain Musculoskeletal: neck pain, back pain, joint pain, edema Neurologic: headaches, seizures Hematologic: easy bruising or bleeding Endocrine: night sweats, acute weight loss Skin: rash, jaundice, redness Psychiatric: suicidal, homicidal ideation Past History Past Medical History: diabetes, hypertension Past Surgical History: appendectomy, Social history: , lives with family. denies: smoking, alcohol abuse Family history: diabetes, hypertension Medications and Allergies Allergies Allergy/AdvReac Type Severity Reaction Status Date / Time No Known Allergies Allergy Verified 01/01/22 14:15 Home Medications Medication Instructions Recorded Confirmed Last Taken Type Empagliflozin/Metformin HCl 1,000 mg PO DAILY 01/06/22 01/06/22 Unknown History Valsartan-Hctz 160-12.5 mg Tab 1 tab PO DAILY 01/06/22 01/06/22 Unknown History Active Meds: Active Medications Acetaminophen (Acetaminophen 325 Mg Tab) 650 mg PO Q4H PRN PRN Reason: Pain MILD(1-3)/Fever >100.5/WHITE Albuterol (Albuterol 2.5 Mg/3 Ml Nebu) 2.5 mg IH Q4HRT PRN PRN Reason: Shortness Of Breath Last Admin: 01/01/22 22:28 Dose: 2.5 mg Dextrose (Dextrose 50% In Water (25gm) 50 Ml Syringe) 0 ml IV Q30MIN PRN; Protocol PRN Reason: Hypoglycemia Hydralazine HCl (Hydralazine 20 Mg/1 Ml Inj) 10 mg IV Q6H PRN PRN Reason: Blood Pressure Last Admin: 01/04/22 23:23 Dose: 10 mg Hydromorphone HCl (Hydromorphone 0.5 Mg/0.5 Ml Inj) 0.5 mg IV Q23H PRN PRN Reason: Pain , Severe (7-10) Last Admin: 01/02/22 23:40 Dose: 0.5 mg Sodium Chloride (Nacl 0.9% 1000 Ml) 1,000 mls @ 100 mls/hr IV DIRECT JOAN Last Admin: 01/04/22 09:09 Dose: 100 mls/hr Ertapenem 1 gm/ Sodium (Chloride) 50 mls @ 100 mls/hr IV QDAY [facility] Last Admin: 01/06/22 12:38 Dose: 100 mls/hr Insulin Human Isoph/Insulin Regular (Insulin Nph/Regular 70/30 Inj) 10 unit SUB-Q BIDDIAB JOAN Last Admin: 01/06/22 16:32 Dose: 10 unit Insulin Human Lispro (Insulin Lispro 100 Unit/Ml) 0 unit SUB-Q ACHS [facility]; Protocol Last Admin: 01/06/22 16:30 Dose: Not Given Magnesium Hydroxide (Magnesium Hydroxide (Mom) Oral Liqd Udc) 30 ml PO ONCE [facility] Last Admin: 01/03/22 16:38 Dose: 30 ml Ondansetron HCl (Ondansetron 4 Mg/2 Ml Inj) 4 mg IV Q8H PRN PRN Reason: Nausea And Vomiting Last Admin: 01/02/22 22:48 Dose: 4 mg Oxycodone/Acetaminophen (Oxycodone /Acetaminophen 5-325mg Tab) 1 tab PO Q16H PRN PRN Reason: Pain, Moderate (4-6) Last Admin: 01/03/22 21:05 Dose: 1 tab Pseudoephedrine/Acetam/Chlorphenir (Guaifenesin/Codeine 100-10mg Oral Liqd 5 Ml) 10 ml PO Q4H PRN PRN Reason: Cough Last Admin: 01/04/22 23:22 Dose: 10 ml Sodium Chloride (Sodium Chloride 0.9% 10 Ml Flush Syringe) 10 ml IV BID JOAN Last Admin: 01/06/22 09:50 Dose: 10 ml Sodium Chloride (Sodium Chloride 0.9% 10 Ml Flush Syringe) 10 ml IV PRN PRN PRN Reason: LINE FLUSH Physical Examination - Physical Exam Narrative exam: Physical Exam: Constitutional: Alert, cooperative. No acute distress Head, Ears, Nose: Normocephalic, atraumatic. External ears, nose normal Eyes: Conjunctivae/corneas clear. No icterus. No ptosis. Neck: Supple, no meningeal signs Oral: dentition fair, no thrush Cardiovascular: S1, S2 normal. Respiratory: Good air entry, clear to auscultation bilaterally GI: Soft, non-tender; bowel sounds normal. No peritoneal signs. Musculoskeletal: No pedal edema, no cyanosis. Skin: No rash or abscess Hem/Lymphatic: No palpable cervical or supraclavicular nodes. No lymphangitis Psych: Mood ok. Affect normal Neurological: Awake, alert, oriented. No gross abnormality - Constitutional Vitals: Vital Signs Temp Pulse Resp BP Pulse Ox 98.2 F 70 18 150/49 98 01/06/22 17:13 01/06/22 17:13 01/06/22 19:00 01/06/22 17:13 01/06/22 19:00 Temperature -Last 24 Hours Temperature 98.2 F Temperature 98.8 F Temperature 98.7 F Temperature 98.1 F Results - Labs CBC & Chem 7: 01/01/22 14:42 01/03/22 05:04 Labs: Abnormal lab results 01/06/22 01/06/22 01/06/22 Range/Units 07:52 11:41 16:04 POC Glucose 132 H 240 H 141 H (70-105) mg/dL 01/06/22 Range/Units 20:47 POC Glucose 136 H (70-105) mg/dL Assessment and Plan Cultures: Blood culture no growth so far Urine culture ESBL E. coli A/P: 71-year-old female past medical history hypertension, diabetes, vascular dementia now with: #UTI with pyelonephritis: Cultures have grown ESBL, recommend outpatient meropenem to complete 10 days antibiotics. No oral options available unfortunately #CKD: Renally dose medications #Diabetes: tight glycemic control for best outcomes. Recs: -Continue ertapenem 1 g every 24 hours while inpatient -Recommend outpatient meropenem 500 mg every 8 hours until 01/16/2022. Case management consulted as such. -Okay for midline on discharge Thank you for the consult, we will continue to follow. Jessica Key MD [facility], [place], [facility] O: [phone] F: [phone]
[2022-01-07] MEDS: INSULIN LISPRO 100 UNIT/ML SUB-Q SCH ×4 (07:53→22:09)
[2022-01-07] MEDS: ERTAPENEM 1 GM in SODIUM CHLORIDE 0.9% 50 ML IV SCH (10:59)
[2022-01-07] MEDS: INSULIN NPH/REGULAR 70/30 INJ SUB-Q SCH ×2 (10:59→17:15)
[2022-01-07] MEDS: ACETAMINOPHEN 325 MG TAB PO PRN (16:01)
--- NOTE | 2022-01-07 17:30 | Progress Note ---
Assessment and Plan Assessment and plan: Conversations through the bilingual [Jordanian to Nigerian ]granddaughter at the bedside. --Sepsis due to ESBL urinary tract infection; DC Levaquin, start ertapenem, ID consult, Contact isolation ID evaluation noted and appreciated , advised to continue ertapenem in hospital Transition to meropenem 500 mg IV every 8 hours stop date 01/16/2022 hours milligrams stop date 01/16/2022 upon discharge -- Acute pyelonephritis/cultures positive for ESBL IV fluids, DC Levaquin started ertapenem Follow ID web development consultant recommendations --UTI (urinary tract infection) Received empiric antibiotics, ESBL positive Change to ertapenem, requested ID consult --severe hyperglycemia/moderate control Accu-Chek sliding scale coverage changed to high scale, Hemoglobin A1c 7.4 long-acting insulin 70/30 10 units twice a day diabetic education, diabetic diet education Home health nurse at discharge for disease monitoring, --Volume depletion/dehydration Continue IV fluids, significantly improved Hold IV fluids encourage plenty of oral fluids --Acute kidney injury (DICKSON) with acute tubular necrosis (ATN) Resolved, renal function within normal limits Continue supportive care --History of vascular dementia Verbal prompting, verbal redirection, benzodiazepine therapy as clinically indicated. --Cerebral atherosclerosis Antiplatelet therapy, risk factor reduction, And supportive care. --Hyponatremia IV fluid resuscitation therapy, Monitor electrolytes . -- DVT prophylaxis SCD to bilateral lower extremities while in bed, --Advance care plannin min Disease education conducted, care plan discussed, diagnosis discussed, , prognosis discussed, patient is full code. Patient knowledges understanding and agreement with care plan, +30 minutes. --Preventive health care +30 minutes. Patient counseled regarding home safety measures, accident avoidance, , balanced diet, outpatient follow-up with primary care physician for all age and risk factor appropriate screening test. Closely monitor the patient and adjust management as needed Plan of care reviewed with the patient [through interpretation Through the bilingual family member ]and the family at the bedside 01/04/2022; urine cultures positive for gram-negative rods Patient is already on Levaquin, follow sensitivities And adjust antibiotics as needed Increase ambulation as tolerated Possible discharge in 1 to 2 days if stable 01/06/2022; urine cultures ESBL positive DC Levaquin start ertapenem, contact isolation ID consulted 01/07/22; ID recommended to continue ertapenem during the hospital stay And switch to meropenem 500 to 8 hours IV for 1 week stop date 01/16/2022 Disposition; case management to set up long-term antibiotics Patient already got midline placed DC planning per case management[patient has no resources] Discharge in 1 to 2 days if stable History Interval history: Seen and examined the patient at the bedside Patient's chart and medications reviewed And is in contact isolation due to ESBL UTI Patient feels slightly better anxious to go home Vital signs noted Bilingual[Jordanian Nigerian] speaking grand daughter at the bedside Hospitalist Physical - Constitutional Vitals: Temp Pulse Resp BP Pulse Ox 97.6 F 66 17 140/47 95 01/07/22 11:30 01/07/22 11:30 01/07/22 11:30 01/07/22 11:30 01/07/22 11:30 General appearance: Present: mild distress, well-nourished, obese - EENT Eyes: Present: PERRL, EOM intact - Neck Neck: Present: supple, normal ROM - Respiratory Respiratory effort: normal Respiratory: bilateral: diminished, negative: rales, rhonchi, wheezing - Cardiovascular Rhythm: regular Heart Sounds: Present: S1 & S2 - Extremities Extremities: no ischemia, No edema - Abdominal General gastrointestinal: soft, non-tender, non-distended, normal bowel sounds - Integumentary Integumentary: Present: clear, warm - Psychiatric Psychiatric: appropriate mood/affect, cooperative - Neurologic Neurologic: moves all extremities HEART Score - HEART Score Troponin: Troponin T < 0.010 ng/mL (0.00-0.029) 01/01/22 14:42 Results - Labs CBC & Chem 7: 01/01/22 14:42 01/03/22 05:04 Labs: Laboratory Last Values WBC 9.0 K/mm3 (4.5-11.0) 01/01/22 14:42 RBC 3.85 M/mm3 (3.65-5.03) 01/01/22 14:42 Hgb 11.7 gm/dl (10.1-14.3) 01/01/22 14:42 Hct 36.1 % (30.3-42.9) 01/01/22 14:42 MCV 94 fl (79-97) 01/01/22 14:42 MCH 30 pg (28-32) 01/01/22 14:42 MCHC 32 % (30-34) 01/01/22 14:42 RDW 15.0 % (13.2-15.2) 01/01/22 14:42 Plt Count 190 K/mm3 (140-440) 01/01/22 14:42 Add Manual Diff Complete 01/01/22 14:42 Total Counted 100 01/01/22 14:42 Seg Neutrophils % Airport Guide 01/01/22 14:42 Seg Neuts % (Manual) 96.0 % (40.0-70.0) H 01/01/22 14:42 Band Neutrophils % 0 % 01/01/22 14:42 Lymphocytes % (Manual) 2.0 % (13.4-35.0) L 01/01/22 14:42 Reactive Lymphs % (Man) 0 % 01/01/22 14:42 Monocytes % (Manual) 1.0 % (0.0-7.3) 01/01/22 14:42 Eosinophils % (Manual) 0 % (0.0-4.3) 01/01/22 14:42 Basophils % (Manual) 0 % (0.0-1.8) 01/01/22 14:42 Metamyelocytes % 1.0 % 01/01/22 14:42 Myelocytes % 0 % 01/01/22 14:42 Promyelocytes % 0 % 01/01/22 14:42 Blast Cells % 0 % 01/01/22 14:42 Nucleated RBC % Not Reportable 01/01/22 14:42 Seg Neutrophils # Man 8.6 K/mm3 (1.8-7.7) H 01/01/22 14:42 Band Neutrophils # 0.0 K/mm3 01/01/22 14:42 Lymphocytes # (Manual) 0.2 K/mm3 (1.2-5.4) L 01/01/22 14:42 Abs React Lymphs (Man) 0.0 K/mm3 01/01/22 14:42 Monocytes # (Manual) 0.1 K/mm3 (0.0-0.8) 01/01/22 14:42 Eosinophils # (Manual) 0.0 K/mm3 (0.0-0.4) 01/01/22 14:42 Basophils # (Manual) 0.0 K/mm3 (0.0-0.1) 01/01/22 14:42 Metamyelocytes # 0.1 K/mm3 01/01/22 14:42 Myelocytes # 0.0 K/mm3 01/01/22 14:42 Promyelocytes # 0.0 K/mm3 01/01/22 14:42 Blast Cells # 0.0 K/mm3 01/01/22 14:42 WBC Morphology Not Reportable 01/01/22 14:42 Hypersegmented Neuts Not Reportable 01/01/22 14:42 Hyposegmented Neuts Few 01/01/22 14:42 Hypogranular Neuts Not Reportable 01/01/22 14:42 Smudge Cells Not Reportable 01/01/22 14:42 Toxic Granulation Not Reportable 01/01/22 14:42 Toxic Vacuolation Not Reportable 01/01/22 14:42 Dohle Bodies Not Reportable 01/01/22 14:42 Pelger-Huet Anomaly Not Reportable 01/01/22 14:42 Pearl Rods Not Reportable 01/01/22 14:42 Platelet Estimate Consistent w auto 01/01/22 14:42 Clumped Platelets Not Reportable 01/01/22 14:42 Plt Clumps, EDTA Not Reportable 01/01/22 14:42 Large Platelets Rare 01/01/22 14:42 Giant Platelets Not Reportable 01/01/22 14:42 Platelet Satelliting Not Reportable 01/01/22 14:42 Plt Morphology Comment Not Reportable 01/01/22 14:42 RBC Morphology Not Reportable 01/01/22 14:42 Dimorphic RBCs Not Reportable 01/01/22 14:42 Polychromasia Not Reportable 01/01/22 14:42 Hypochromasia Not Reportable 01/01/22 14:42 Poikilocytosis 1+ 01/01/22 14:42 Anisocytosis Not Reportable 01/01/22 14:42 Microcytosis Not Reportable 01/01/22 14:42 Macrocytosis Not Reportable 01/01/22 14:42 Spherocytes Few 01/01/22 14:42 Pappenheimer Bodies Not Reportable 01/01/22 14:42 Sickle Cells Not Reportable 01/01/22 14:42 Target Cells Not Reportable 01/01/22 14:42 Tear Drop Cells Not Reportable 01/01/22 14:42 Ovalocytes Not Reportable 01/01/22 14:42 Stomatocytes Few 01/01/22 14:42 Helmet Cells Not Reportable 01/01/22 14:42 [place] Bodies Not Reportable 01/01/22 14:42 [place] Rings Not Reportable 01/01/22 14:42 Nishant Cells Not Reportable 01/01/22 14:42 Bite Cells Not Reportable 01/01/22 14:42 Crenated Cell Not Reportable 01/01/22 14:42 Elliptocytes Not Reportable 01/01/22 14:42 Acanthocytes (Spur) Not Reportable 01/01/22 14:42 Rouleaux Not Reportable 01/01/22 14:42 Hemoglobin C Crystals Not Reportable 01/01/22 14:42 Schistocytes Not Reportable 01/01/22 14:42 Malaria parasites Not Reportable 01/01/22 14:42 Nicholas Bodies Not Reportable 01/01/22 14:42 Hem Pathologist Commnt No 01/01/22 14:42 PT 14.7 Sec. (12.2-14.9) 01/01/22 14:42 INR 1.01 (0.87-1.13) 01/01/22 14:42 APTT 35.8 Sec. (24.2-36.6) 01/01/22 14:42 Sodium 133 mmol/L (137-145) L 01/03/22 05:04 Potassium 4.2 mmol/L (3.6-5.0) 01/03/22 05:04 Chloride 105.0 mmol/L (98-107) 01/03/22 05:04 Carbon Dioxide 17 mmol/L (22-30) L 01/03/22 05:04 Anion Gap 15 mmol/L 01/03/22 05:04 BUN 49 mg/dL (7-17) H 01/03/22 05:04 Creatinine 1.2 mg/dL (0.6-1.2) 01/03/22 05:04 Estimated GFR 44 ml/min 01/03/22 05:04 BUN/Creatinine Ratio 41 % 01/03/22 05:04 Glucose 205 mg/dL (65-100) H 01/03/22 05:04 POC Glucose 230 mg/dL (70-105) H 01/07/22 17:02 Hemoglobin A1c 7.4 % (4-6) H 01/03/22 05:04 Lactic Acid 0.80 mmol/L (0.7-2.0) 01/01/22 20:30 Calcium 8.9 mg/dL (8.4-10.2) 01/03/22 05:04 Magnesium 2.40 mg/dL (1.7-2.3) H 01/03/22 05:04 Total Bilirubin 0.90 mg/dL (0.1-1.2) 01/01/22 14:42 AST 91 units/L (5-40) H 01/01/22 14:42 ALT 45 units/L (7-56) 01/01/22 14:42 Alkaline Phosphatase 117 units/L (35-129) 01/01/22 14:42 Troponin T < 0.010 ng/mL (0.00-0.029) 01/01/22 14:42 Total Protein 6.4 g/dL (6.3-8.2) 01/01/22 14:42 Albumin 3.7 g/dL (3.9-5) L 01/01/22 14:42 Albumin/Globulin Ratio 1.4 % 01/01/22 14:42 Lipase 49 units/L (13-60) 01/01/22 14:42 Urine Color Yellow (Yellow) 01/01/22 16:43 Urine Turbidity Cloudy (Clear) 01/01/22 16:43 Urine pH 6.0 (5.0-7.0) 01/01/22 16:43 Ur Specific [place] 1.013 (1.003-1.030) 01/01/22 16:43 Urine Protein 30 mg/dl mg/dL (Negative) 01/01/22 16:43 Urine Glucose (UA) >=500 mg/dL (Negative) 01/01/22 16:43 Urine Ketones Neg mg/dL (Negative) 01/01/22 16:43 Urine Blood Lg (Negative) 01/01/22 16:43 Urine Nitrite Neg (Negative) 01/01/22 16:43 Urine Bilirubin Neg (Negative) 01/01/22 16:43 Urine Urobilinogen < 2.0 mg/dL (<2.0) 01/01/22 16:43 Ur Leukocyte Esterase Lg (Negative) 01/01/22 16:43 Urine WBC (Auto) > 182.0 /HPF (0.0-6.0) H 01/01/22 16:43 Urine RBC (Auto) 36.0 /HPF (0.0-6.0) 01/01/22 16:43 U Epithel Cells (Auto) 4.0 /HPF (0-13.0) 01/01/22 16:43 Urine Bacteria (Auto) 4+ /HPF (Negative) 01/01/22 16:43 Urine WBC Clumps 3+ /HPF 01/01/22 16:43 Urine Mucus Few /HPF 01/01/22 16:43 Microbiology: Microbiology 01/01/22 15:02 Peripheral/Venous Blood Culture - Final NO GROWTH AFTER 5 DAYS 01/01/22 15:02 Peripheral/Venous Blood Culture - Final NO GROWTH AFTER 5 DAYS 01/03/22 04:40 Urine,Clean Catch Urine Culture - Final Escherichia Coli [place]/IV: Voiding Method Toilet Active Medications - Current Medications Current Medications: Generic Name Dose Route Start Last Admin Trade Name Freq PRN Reason Stop Dose Admin Acetaminophen 650 mg 01/01/22 19:33 01/07/22 16:01 Acetaminophen 325 Mg Tab PO 650 mg Q4H PRN Administration Pain MILD(1-3)/Fever >100.5/WHITE Albuterol 2.5 mg 01/01/22 19:33 01/01/22 22:28 Albuterol 2.5 Mg/3 Ml Nebu IH 2.5 mg Q4HRT PRN Administration Shortness Of Breath Dextrose 0 ml 01/01/22 19:47 Dextrose 50% In Water (25gm) 50 Ml Syringe IV Q30MIN PRN Hypoglycemia Protocol Hydralazine HCl 10 mg 01/04/22 22:05 01/04/22 23:23 Hydralazine 20 Mg/1 Ml Inj IV 10 mg Q6H PRN Administration Blood Pressure Hydromorphone HCl 0.5 mg 01/01/22 19:33 01/02/22 23:40 Hydromorphone 0.5 Mg/0.5 Ml Inj IV 0.5 mg Q23H PRN Administration Pain , Severe (7-10) Sodium Chloride 1,000 mls @ 100 mls/hr 01/01/22 19:45 01/04/22 09:09 Nacl 0.9% 1000 Ml IV 100 mls/hr DIRECT JOAN Administration Ertapenem 1 gm/ Sodium 50 mls @ 100 mls/hr 01/06/22 12:00 01/07/22 14:46 Chloride IV 01/15/22 10:29 Infused QDAY JOAN Infusion Insulin Human Isoph/Insulin Regular 10 unit 01/02/22 18:00 01/07/22 17:15 Insulin Nph/Regular 70/30 Inj SUB-Q 10 unit BIDDIAB JOAN Administration Insulin Human Lispro 0 unit 01/01/22 22:00 01/07/22 17:16 Insulin Lispro 100 Unit/Ml SUB-Q Not Given ACHS JOAN Protocol Magnesium Hydroxide 30 ml 01/03/22 15:44 01/03/22 16:38 Magnesium Hydroxide (Mom) Oral Liqd Udc PO 30 ml ONCE JOAN Administration Ondansetron HCl 4 mg 01/01/22 19:33 01/02/22 22:48 Ondansetron 4 Mg/2 Ml Inj IV 4 mg Q8H PRN Administration Nausea And Vomiting Oxycodone/Acetaminophen 1 tab 01/01/22 19:33 01/03/22 21:05 Oxycodone /Acetaminophen 5-325mg Tab PO 1 tab Q16H PRN Administration Pain, Moderate (4-6) Pseudoephedrine/Acetam/Chlorphenir 10 ml 01/03/22 20:59 01/04/22 23:22 Guaifenesin/Codeine 100-10mg Oral Liqd 5 Ml PO 10 ml Q4H PRN Administration Cough Sodium Chloride 10 ml 01/01/22 22:00 01/07/22 10:59 Sodium Chloride 0.9% 10 Ml Flush Syringe IV 10 ml BID JOAN Administration Sodium Chloride 10 ml 01/01/22 19:33 Sodium Chloride 0.9% 10 Ml Flush Syringe IV PRN PRN LINE FLUSH Nutrition/Malnutrition Assess - Dietary Evaluation Nutrition/Malnutrition Findings: Nutrition Notes Start: 01/03/22 13:42 Freq: Status: Active Protocol: Document 01/03/22 13:42 RS (Rec: 01/03/22 14:33 RS [id number]) Nutrition Notes Need for Assessment generated from: MD Order,Education Initial or Follow up Assessment Current Diagnosis Acute Kidney Injury,Diabetes Other Pertinent Diagnosis Pyelonephritis, UTI, Vascular Dementia, Cerebral Atherosclerosis Current Diet Consistent CHO Labs/Tests Na:133 CO2:17 BUN:49 Glu:205 HgbA1c: 7.4 Pertinent Medications Reviewed Height 5 ft 3 in Weight 73.2 kg [place] Body Weight (kg) 52.27 BMI 28.5 Weight change and time frame MIRANDA wt hx Weight Status Appropriate Subjective/Other Information MD consult for DM diet education. Pt has vascular dementia along with language barrier. Diet education innapropriate at this time. Pt reports nausea along with diminished appetite before admission. Pt consuming 75% of meals and is on fluid restriction with strict I&Os. Percent of energy/protein needs met: 98%/94% GI Symptoms Nausea Current % PO Good (75-100%) Minimum of two criteria No physical signs of malnutrition #1 Nutrition Diagnosis No nutrition diagnosis at this time Is patient on ventilator? No Is Patient Ambulatory and/or Out of Bed Yes REE-([facility]-ambulatory/OOB) [ [id number] [id number]] Calculation Used for Recommendations [facility] Additional Notes Protein: 73-88g/day (1-1.2g/kg BW/day) Fluid needs: 1500mL or per MD Nutrition Intervention Anticipated Discharge Needs: Consistent CHO Revisit per MD consult or patient Sign Off request:
--- NOTE | 2022-01-07 18:09 | Progress Note ---
Assessment and Plan Cultures: Blood culture no growth so far Urine culture ESBL E. coli A/P: 71-year-old female past medical history hypertension, diabetes, vascular dementia now with: #UTI with pyelonephritis: Cultures have grown ESBL, recommend outpatient meropenem to complete 10 days antibiotics. No oral options available unfortunately #CKD: Renally dose medications #Diabetes: tight glycemic control for best outcomes. Recs: -Continue ertapenem 1 g every 24 hours while inpatient -Recommend outpatient meropenem 500 mg every 8 hours until 01/16/2022. Case management consulted as such. -Okay for midline on discharge Thank you for the consult, we will sign off. Please call questions. Jessica Key MD [facility] O: [phone] F: [phone] Subjective Date of service: 01/07/22 Interval history: Afebrile, no acute change. Objective - Exam Narrative Exam: Physical Exam: Constitutional: Alert, cooperative. No acute distress Head, Ears, Nose: Normocephalic, atraumatic. External ears, nose normal Eyes: Conjunctivae/corneas clear. No icterus. No ptosis. Neck: Supple, no meningeal signs Oral: dentition fair, no thrush Cardiovascular: S1, S2 normal. Respiratory: Good air entry, clear to auscultation bilaterally GI: Soft, non-tender; bowel sounds normal. No peritoneal signs. Musculoskeletal: No pedal edema, no cyanosis. Skin: No rash or abscess Hem/Lymphatic: No palpable cervical or supraclavicular nodes. No lymphangitis Psych: Mood ok. Affect normal Neurological: Awake, alert, oriented. No gross abnormality - Constitutional Vitals: Vital Signs Temp Pulse Resp BP Pulse Ox 97.9 F 64 22 147/48 98 01/07/22 17:04 01/07/22 17:04 01/07/22 17:04 01/07/22 17:04 01/07/22 17:04 Temperature -Last 24 Hours Temperature 97.9 F Temperature 98.7 F Temperature 97.6 F Temperature 97.8 F Temperature 98.4 F - Labs CBC & Chem 7: 01/01/22 14:42 01/03/22 05:04 Labs: Abnormal lab results 01/06/22 01/07/22 01/07/22 Range/Units 20:47 07:43 11:35 POC Glucose 136 H 148 H 278 H (70-105) mg/dL 01/07/22 Range/Units 17:02 POC Glucose 230 H (70-105) mg/dL
[2022-01-08] MEDS: INSULIN LISPRO 100 UNIT/ML SUB-Q SCH ×4 (11:03→21:49)
[2022-01-08] MEDS: INSULIN NPH/REGULAR 70/30 INJ SUB-Q SCH ×2 (11:10→18:07)
[2022-01-08] MEDS: ERTAPENEM 1 GM in SODIUM CHLORIDE 0.9% 50 ML IV SCH (11:11)
[2022-01-08] MEDS: oxyCODONE /ACETAMINOPHEN 5-325MG TAB PO PRN (18:08)
--- NOTE | 2022-01-08 19:45 | Progress Note ---
Assessment and Plan Assessment and plan: Conversations through the bilingual [[place] to [place] ]granddaughter at the bedside. --Sepsis due to ESBL urinary tract infection; DC Levaquin, start ertapenem, ID consult, Contact isolation ID evaluation noted and appreciated , advised to continue ertapenem in hospital Transition to meropenem 500 mg IV every 8 hours stop date 01/16/2022 hours milligrams stop date 01/16/2022 upon discharge -- Acute pyelonephritis/cultures positive for ESBL IV fluids, DC Levaquin started ertapenem Follow ID professional employer consultant recommendations --UTI (urinary tract infection) Received empiric antibiotics, ESBL positive Change to ertapenem, requested ID consult --severe hyperglycemia/moderate control Accu-Chek sliding scale coverage changed to high scale, Hemoglobin A1c 7.4 long-acting insulin 70/30 10 units twice a day diabetic education, diabetic diet education Home health nurse at discharge for disease monitoring, --Volume depletion/dehydration Continue IV fluids, significantly improved Hold IV fluids encourage plenty of oral fluids --Acute kidney injury ([place]) with acute tubular necrosis (ATN) Resolved, renal function within normal limits Continue supportive care --History of vascular dementia Verbal prompting, verbal redirection, benzodiazepine therapy as clinically indicated. --Cerebral atherosclerosis Antiplatelet therapy, risk factor reduction, And supportive care. --Hyponatremia IV fluid resuscitation therapy, Monitor electrolytes . -- DVT prophylaxis SCD to bilateral lower extremities while in bed, --Advance care plannin min Disease education conducted, care plan discussed, diagnosis discussed, , prognosis discussed, patient is full code. Patient knowledges understanding and agreement with care plan, +30 minutes. --Preventive health care +30 minutes. Patient counseled regarding home safety measures, accident avoidance, , balanced diet, outpatient follow-up with primary care physician for all age and risk factor appropriate screening test. Closely monitor the patient and adjust management as needed Plan of care reviewed with the patient [through interpretation Through the bilingual family member ]and the family at the bedside 01/04/2022; urine cultures positive for gram-negative rods Patient is already on Levaquin, follow sensitivities And adjust antibiotics as needed Increase ambulation as tolerated Possible discharge in 1 to 2 days if stable 01/06/2022; urine cultures ESBL positive DC Levaquin start ertapenem, contact isolation ID consulted 01/07/22; ID recommended to continue ertapenem during the hospital stay And switch to meropenem 500 to 8 hours IV for 1 week stop date 01/16/2022 01/08/2022 case management to set up long-term antibiotics Patient already got midline placed DC planning per case management[patient has no resources] Discharge in 1 to 2 days if stable History Interval history: Seen and examined the patient at the bedside patient's chart and medications reviewed Patient feels better and anxious to go home awaiting long-term antibiotics to be set up Vital signs noted Hospitalist Physical - Constitutional Vitals: Temp Pulse Resp BP Pulse Ox 98.4 F 67 22 127/45 99 01/08/22 16:37 01/08/22 16:37 01/08/22 16:37 01/08/22 16:37 01/08/22 16:37 General appearance: Present: mild distress, well-nourished, obese - EENT Eyes: Present: PERRL, EOM intact - Neck Neck: Present: supple, normal ROM - Respiratory Respiratory effort: normal Respiratory: bilateral: diminished, negative: rales, rhonchi, wheezing - Cardiovascular Rhythm: regular Heart Sounds: Present: S1 & S2 - Extremities Extremities: no ischemia, No edema - Abdominal General gastrointestinal: soft, non-tender, non-distended, normal bowel sounds - Integumentary Integumentary: Present: clear, warm - Psychiatric Psychiatric: appropriate mood/affect, cooperative - Neurologic Neurologic: moves all extremities HEART Score - HEART Score Troponin: Troponin T < 0.010 ng/mL (0.00-0.029) 01/01/22 14:42 Results - Labs CBC & Chem 7: 01/01/22 14:42 01/03/22 05:04 Labs: Laboratory Last Values WBC 9.0 K/mm3 (4.5-11.0) 01/01/22 14:42 RBC 3.85 M/mm3 (3.65-5.03) 01/01/22 14:42 Hgb 11.7 gm/dl (10.1-14.3) 01/01/22 14:42 Hct 36.1 % (30.3-42.9) 01/01/22 14:42 MCV 94 fl (79-97) 01/01/22 14:42 MCH 30 pg (28-32) 01/01/22 14:42 MCHC 32 % (30-34) 01/01/22 14:42 RDW 15.0 % (13.2-15.2) 01/01/22 14:42 Plt Count 190 K/mm3 (140-440) 01/01/22 14:42 Add Manual Diff Complete 01/01/22 14:42 Total Counted 100 01/01/22 14:42 Seg Neutrophils % Employment Manager 01/01/22 14:42 Seg Neuts % (Manual) 96.0 % (40.0-70.0) H 01/01/22 14:42 Band Neutrophils % 0 % 01/01/22 14:42 Lymphocytes % (Manual) 2.0 % (13.4-35.0) L 01/01/22 14:42 Reactive Lymphs % (Man) 0 % 01/01/22 14:42 Monocytes % (Manual) 1.0 % (0.0-7.3) 01/01/22 14:42 Eosinophils % (Manual) 0 % (0.0-4.3) 01/01/22 14:42 Basophils % (Manual) 0 % (0.0-1.8) 01/01/22 14:42 Metamyelocytes % 1.0 % 01/01/22 14:42 Myelocytes % 0 % 01/01/22 14:42 Promyelocytes % 0 % 01/01/22 14:42 Blast Cells % 0 % 01/01/22 14:42 Nucleated RBC % Not Reportable 01/01/22 14:42 Seg Neutrophils # Man 8.6 K/mm3 (1.8-7.7) H 01/01/22 14:42 Band Neutrophils # 0.0 K/mm3 01/01/22 14:42 Lymphocytes # (Manual) 0.2 K/mm3 (1.2-5.4) L 01/01/22 14:42 Abs React Lymphs (Man) 0.0 K/mm3 01/01/22 14:42 Monocytes # (Manual) 0.1 K/mm3 (0.0-0.8) 01/01/22 14:42 Eosinophils # (Manual) 0.0 K/mm3 (0.0-0.4) 01/01/22 14:42 Basophils # (Manual) 0.0 K/mm3 (0.0-0.1) 01/01/22 14:42 Metamyelocytes # 0.1 K/mm3 01/01/22 14:42 Myelocytes # 0.0 K/mm3 01/01/22 14:42 Promyelocytes # 0.0 K/mm3 01/01/22 14:42 Blast Cells # 0.0 K/mm3 01/01/22 14:42 WBC Morphology Not Reportable 01/01/22 14:42 Hypersegmented Neuts Not Reportable 01/01/22 14:42 Hyposegmented Neuts Few 01/01/22 14:42 Hypogranular Neuts Not Reportable 01/01/22 14:42 Smudge Cells Not Reportable 01/01/22 14:42 Toxic Granulation Not Reportable 01/01/22 14:42 Toxic Vacuolation Not Reportable 01/01/22 14:42 Dohle Bodies Not Reportable 01/01/22 14:42 Pelger-Huet Anomaly Not Reportable 01/01/22 14:42 Pearl Rods Not Reportable 01/01/22 14:42 Platelet Estimate Consistent w auto 01/01/22 14:42 Clumped Platelets Not Reportable 01/01/22 14:42 Plt Clumps, EDTA Not Reportable 01/01/22 14:42 Large Platelets Rare 01/01/22 14:42 Giant Platelets Not Reportable 01/01/22 14:42 Platelet Satelliting Not Reportable 01/01/22 14:42 Plt Morphology Comment Not Reportable 01/01/22 14:42 RBC Morphology Not Reportable 01/01/22 14:42 Dimorphic RBCs Not Reportable 01/01/22 14:42 Polychromasia Not Reportable 01/01/22 14:42 Hypochromasia Not Reportable 01/01/22 14:42 Poikilocytosis 1+ 01/01/22 14:42 Anisocytosis Not Reportable 01/01/22 14:42 Microcytosis Not Reportable 01/01/22 14:42 Macrocytosis Not Reportable 01/01/22 14:42 Spherocytes Few 01/01/22 14:42 Pappenheimer Bodies Not Reportable 01/01/22 14:42 Sickle Cells Not Reportable 01/01/22 14:42 Target Cells Not Reportable 01/01/22 14:42 Tear Drop Cells Not Reportable 01/01/22 14:42 Ovalocytes Not Reportable 01/01/22 14:42 Stomatocytes Few 01/01/22 14:42 Helmet Cells Not Reportable 01/01/22 14:42 Dubose-Cidra Bodies Not Reportable 01/01/22 14:42 [place] Rings Not Reportable 01/01/22 14:42 Nishant Cells Not Reportable 01/01/22 14:42 Bite Cells Not Reportable 01/01/22 14:42 Crenated Cell Not Reportable 01/01/22 14:42 Elliptocytes Not Reportable 01/01/22 14:42 Acanthocytes (Spur) Not Reportable 01/01/22 14:42 Rouleaux Not Reportable 01/01/22 14:42 Hemoglobin C Crystals Not Reportable 01/01/22 14:42 Schistocytes Not Reportable 01/01/22 14:42 Malaria parasites Not Reportable 01/01/22 14:42 Nicholas Bodies Not Reportable 01/01/22 14:42 Hem Pathologist Commnt No 01/01/22 14:42 PT 14.7 Sec. (12.2-14.9) 01/01/22 14:42 INR 1.01 (0.87-1.13) 01/01/22 14:42 APTT 35.8 Sec. (24.2-36.6) 01/01/22 14:42 Sodium 133 mmol/L (137-145) L 01/03/22 05:04 Potassium 4.2 mmol/L (3.6-5.0) 01/03/22 05:04 Chloride 105.0 mmol/L (98-107) 01/03/22 05:04 Carbon Dioxide 17 mmol/L (22-30) L 01/03/22 05:04 Anion Gap 15 mmol/L 01/03/22 05:04 BUN 49 mg/dL (7-17) H 01/03/22 05:04 Creatinine 1.2 mg/dL (0.6-1.2) 01/03/22 05:04 Estimated GFR 44 ml/min 01/03/22 05:04 BUN/Creatinine Ratio 41 % 01/03/22 05:04 Glucose 205 mg/dL (65-100) H 01/03/22 05:04 POC Glucose 202 mg/dL (70-105) H 01/08/22 16:34 Hemoglobin A1c 7.4 % (4-6) H 01/03/22 05:04 Lactic Acid 0.80 mmol/L (0.7-2.0) 01/01/22 20:30 Calcium 8.9 mg/dL (8.4-10.2) 01/03/22 05:04 Magnesium 2.40 mg/dL (1.7-2.3) H 01/03/22 05:04 Total Bilirubin 0.90 mg/dL (0.1-1.2) 01/01/22 14:42 AST 91 units/L (5-40) H 01/01/22 14:42 ALT 45 units/L (7-56) 01/01/22 14:42 Alkaline Phosphatase 117 units/L (35-129) 01/01/22 14:42 Troponin T < 0.010 ng/mL (0.00-0.029) 01/01/22 14:42 Total Protein 6.4 g/dL (6.3-8.2) 01/01/22 14:42 Albumin 3.7 g/dL (3.9-5) L 01/01/22 14:42 Albumin/Globulin Ratio 1.4 % 01/01/22 14:42 Lipase 49 units/L (13-60) 01/01/22 14:42 Urine Color Yellow (Yellow) 01/01/22 16:43 Urine Turbidity Cloudy (Clear) 01/01/22 16:43 Urine pH 6.0 (5.0-7.0) 01/01/22 16:43 Ur Specific [place] 1.013 (1.003-1.030) 01/01/22 16:43 Urine Protein 30 mg/dl mg/dL (Negative) 01/01/22 16:43 Urine Glucose (UA) >=500 mg/dL (Negative) 01/01/22 16:43 Urine Ketones Neg mg/dL (Negative) 01/01/22 16:43 Urine Blood Lg (Negative) 01/01/22 16:43 Urine Nitrite Neg (Negative) 01/01/22 16:43 Urine Bilirubin Neg (Negative) 01/01/22 16:43 Urine Urobilinogen < 2.0 mg/dL (<2.0) 01/01/22 16:43 Ur Leukocyte Esterase Lg (Negative) 01/01/22 16:43 Urine WBC (Auto) > 182.0 /HPF (0.0-6.0) H 01/01/22 16:43 Urine RBC (Auto) 36.0 /HPF (0.0-6.0) 01/01/22 16:43 U Epithel Cells (Auto) 4.0 /HPF (0-13.0) 01/01/22 16:43 Urine Bacteria (Auto) 4+ /HPF (Negative) 01/01/22 16:43 Urine WBC Clumps 3+ /HPF 01/01/22 16:43 Urine Mucus Few /HPF 01/01/22 16:43 Inman/IV: Voiding Method Toilet Active Medications - Current Medications Current Medications: Generic Name Dose Route Start Last Admin Trade Name Freq PRN Reason Stop Dose Admin Acetaminophen 650 mg 01/01/22 19:33 01/07/22 16:01 Acetaminophen 325 Mg Tab PO 650 mg Q4H PRN Administration Pain MILD(1-3)/Fever >100.5/WHITE Albuterol 2.5 mg 01/01/22 19:33 01/01/22 22:28 Albuterol 2.5 Mg/3 Ml Nebu IH 2.5 mg Q4HRT PRN Administration Shortness Of Breath Dextrose 0 ml 01/01/22 19:47 Dextrose 50% In Water (25gm) 50 Ml Syringe IV Q30MIN PRN Hypoglycemia Protocol Hydralazine HCl 10 mg 01/04/22 22:05 01/04/22 23:23 Hydralazine 20 Mg/1 Ml Inj IV 10 mg Q6H PRN Administration Blood Pressure Hydromorphone HCl 0.5 mg 01/01/22 19:33 01/02/22 23:40 Hydromorphone 0.5 Mg/0.5 Ml Inj IV 0.5 mg Q23H PRN Administration Pain , Severe (7-10) Sodium Chloride 1,000 mls @ 100 mls/hr 01/01/22 19:45 01/04/22 09:09 Nacl 0.9% 1000 Ml IV 100 mls/hr DIRECT JOAN Administration Ertapenem 1 gm/ Sodium 50 mls @ 100 mls/hr 01/06/22 12:00 01/08/22 11:41 Chloride IV 01/16/22 10:29 Infused QDAY JOAN Infusion Insulin Human Isoph/Insulin Regular 10 unit 01/02/22 18:00 01/08/22 18:07 Insulin Nph/Regular 70/30 Inj SUB-Q 10 unit BIDDIAB JOAN Administration Insulin Human Lispro 0 unit 01/01/22 22:00 01/08/22 16:30 Insulin Lispro 100 Unit/Ml SUB-Q Not Given ACHS JOAN Protocol Magnesium Hydroxide 30 ml 01/03/22 15:44 01/03/22 16:38 Magnesium Hydroxide (Mom) Oral Liqd Udc PO 30 ml ONCE JOAN Administration Ondansetron HCl 4 mg 01/01/22 19:33 01/02/22 22:48 Ondansetron 4 Mg/2 Ml Inj IV 4 mg Q8H PRN Administration Nausea And Vomiting Oxycodone/Acetaminophen 1 tab 01/01/22 19:33 01/08/22 18:08 Oxycodone /Acetaminophen 5-325mg Tab PO 1 tab Q16H PRN Administration Pain, Moderate (4-6) Pseudoephedrine/Acetam/Chlorphenir 10 ml 01/03/22 20:59 01/04/22 23:22 Guaifenesin/Codeine 100-10mg Oral Liqd 5 Ml PO 10 ml Q4H PRN Administration Cough Sodium Chloride 10 ml 01/01/22 22:00 01/08/22 11:11 Sodium Chloride 0.9% 10 Ml Flush Syringe IV 10 ml BID JOAN Administration Sodium Chloride 10 ml 01/01/22 19:33 Sodium Chloride 0.9% 10 Ml Flush Syringe IV PRN PRN LINE FLUSH Nutrition/Malnutrition Assess - Dietary Evaluation Nutrition/Malnutrition Findings: Nutrition Notes Start: 01/03/22 13:42 Freq: Status: Active Protocol: Document 01/03/22 13:42 RS (Rec: 01/03/22 14:33 RS [id number]) Nutrition Notes Need for Assessment generated from: MD Order,Education Initial or Follow up Assessment Current Diagnosis Acute Kidney Injury,Diabetes Other Pertinent Diagnosis Pyelonephritis, UTI, Vascular Dementia, Cerebral Atherosclerosis Current Diet Consistent CHO Labs/Tests Na:133 CO2:17 BUN:49 Glu:205 HgbA1c: 7.4 Pertinent Medications Reviewed Height 5 ft 3 in Weight 73.2 kg [place] Body Weight (kg) 52.27 BMI 28.5 Weight change and time frame MIRANDA wt hx Weight Status Appropriate Subjective/Other Information MD consult for DM diet education. Pt has vascular dementia along with language barrier. Diet education innapropriate at this time. Pt reports nausea along with diminished appetite before admission. Pt consuming 75% of meals and is on fluid restriction with strict I&Os. Percent of energy/protein needs met: 98%/94% GI Symptoms Nausea Current % PO Good (75-100%) Minimum of two criteria No physical signs of malnutrition #1 Nutrition Diagnosis No nutrition diagnosis at this time Is patient on ventilator? No Is Patient Ambulatory and/or Out of Bed Yes REE-([facility]-ambulatory/OOB) [ [id number]] Calculation Used for Recommendations [facility] Additional Notes Protein: 73-88g/day (1-1.2g/kg BW/day) Fluid needs: 1500mL or per MD Nutrition Intervention Anticipated Discharge Needs: Consistent CHO Revisit per MD consult or patient Sign Off request:
[2022-01-09] MEDS: oxyCODONE /ACETAMINOPHEN 5-325MG TAB PO PRN ×2 (05:19→21:56)
[2022-01-09] MEDS: INSULIN LISPRO 100 UNIT/ML SUB-Q SCH ×4 (09:27→21:50)
[2022-01-09] MEDS: INSULIN NPH/REGULAR 70/30 INJ SUB-Q SCH ×2 (09:29→16:28)
[2022-01-09] MEDS: ERTAPENEM 1 GM in SODIUM CHLORIDE 0.9% 50 ML IV SCH (09:31)
--- NOTE | 2022-01-09 10:08 | Progress Note ---
Assessment and Plan Assessment and plan: Conversations through the bilingual [Ecuadorean to Turkish ]granddaughter at the bedside. --Sepsis due to ESBL urinary tract infection; s/p Levaquin, currently on ertapenem Upon discharge transition to meropenem 500 mg IV every 8 hours stop date 01/16/2022 hours , Patient already has midline -- Acute pyelonephritis/cultures positive for ESBL IV fluids, DC Levaquin started ertapenem Follow ID strategy execution consultant recommendations --UTI (urinary tract infection) Received empiric antibiotics, ESBL positive Change to ertapenem, requested ID consult --severe hyperglycemia/moderate control Accu-Chek sliding scale coverage changed to high scale, Hemoglobin A1c 7.4 long-acting insulin 70/30 10 units twice a day diabetic education, diabetic diet education Home health nurse at discharge for disease monitoring, --Volume depletion/dehydration Continue IV fluids, significantly improved Hold IV fluids encourage plenty of oral fluids --Acute kidney injury ([place]) with acute tubular necrosis (ATN) Resolved, renal function within normal limits Continue supportive care --History of vascular dementia Verbal prompting, verbal redirection, benzodiazepine therapy as clinically indicated. --Cerebral atherosclerosis Antiplatelet therapy, risk factor reduction, And supportive care. --Hyponatremia IV fluid resuscitation therapy, Monitor electrolytes . -- DVT prophylaxis SCD to bilateral lower extremities while in bed, --Advance care plannin min Disease education conducted, care plan discussed, diagnosis discussed, , prognosis discussed, patient is full code. Patient knowledges understanding and agreement with care plan, +30 minutes. --Preventive health care +30 minutes. Patient counseled regarding home safety measures, accident avoidance, , balanced diet, outpatient follow-up with primary care physician for all age and risk factor appropriate screening test. Closely monitor the patient and adjust management as needed Plan of care reviewed with the patient [through interpretation Through the bilingual family member ]and the family at the bedside 01/04/2022; urine cultures positive for gram-negative rods Patient is already on Levaquin, follow sensitivities And adjust antibiotics as needed Increase ambulation as tolerated Possible discharge in 1 to 2 days if stable 01/06/2022; urine cultures ESBL positive DC Levaquin start ertapenem, contact isolation ID consulted 01/07/22; ID recommended to continue ertapenem during the hospital stay And switch to meropenem 500 to 8 hours IV for 1 week stop date 01/16/2022 01/08/2022 Disposition; case management to set up long-term antibiotics Patient already got midline placed DC planning per case management[patient has no resources] Discharge in 1 to 2 days if stable 01/09/2022; awaiting long-term antibiotics set up for case management DC planning per case management History Interval history: Communication with the patient through a bilingual granddaughter at the bedside I have seen and examined the patient at the bedside Patient's chart and medications reviewed Patient feels better no new complaints Awaiting long-term antibiotics Case management Patient has no new complaints Vital signs noted Hospitalist Physical - Constitutional Vitals: Temp Pulse Resp BP Pulse Ox 98.5 F 64 18 158/51 98 01/09/22 05:16 01/09/22 05:17 01/09/22 05:16 01/09/22 05:16 01/09/22 08:00 General appearance: Present: no acute distress, well-nourished - EENT Eyes: Present: PERRL, EOM intact - Neck Neck: Present: supple, normal ROM - Respiratory Respiratory effort: normal Respiratory: bilateral: diminished, negative: rales, rhonchi, wheezing - Cardiovascular Rhythm: regular Heart Sounds: Present: S1 & S2 - Extremities Extremities: no ischemia, No edema - Abdominal General gastrointestinal: soft, non-tender, non-distended - Integumentary Integumentary: Present: clear, warm - Psychiatric Psychiatric: appropriate mood/affect, cooperative - Neurologic Neurologic: CNII-XII intact, moves all extremities HEART Score - HEART Score Troponin: Troponin T < 0.010 ng/mL (0.00-0.029) 01/01/22 14:42 Results - Labs CBC & Chem 7: 01/01/22 14:42 01/03/22 05:04 Labs: Laboratory Last Values WBC 9.0 K/mm3 (4.5-11.0) 01/01/22 14:42 RBC 3.85 M/mm3 (3.65-5.03) 01/01/22 14:42 Hgb 11.7 gm/dl (10.1-14.3) 01/01/22 14:42 Hct 36.1 % (30.3-42.9) 01/01/22 14:42 MCV 94 fl (79-97) 01/01/22 14:42 MCH 30 pg (28-32) 01/01/22 14:42 MCHC 32 % (30-34) 01/01/22 14:42 RDW 15.0 % (13.2-15.2) 01/01/22 14:42 Plt Count 190 K/mm3 (140-440) 01/01/22 14:42 Add Manual Diff Complete 01/01/22 14:42 Total Counted 100 01/01/22 14:42 Seg Neutrophils % [place] [employer] 01/01/22 14:42 Seg Neuts % (Manual) 96.0 % (40.0-70.0) H 01/01/22 14:42 Band Neutrophils % 0 % 01/01/22 14:42 Lymphocytes % (Manual) 2.0 % (13.4-35.0) L 01/01/22 14:42 Reactive Lymphs % (Man) 0 % 01/01/22 14:42 Monocytes % (Manual) 1.0 % (0.0-7.3) 01/01/22 14:42 Eosinophils % (Manual) 0 % (0.0-4.3) 01/01/22 14:42 Basophils % (Manual) 0 % (0.0-1.8) 01/01/22 14:42 Metamyelocytes % 1.0 % 01/01/22 14:42 Myelocytes % 0 % 01/01/22 14:42 Promyelocytes % 0 % 01/01/22 14:42 Blast Cells % 0 % 01/01/22 14:42 Nucleated RBC % Not Reportable 01/01/22 14:42 Seg Neutrophils # Man 8.6 K/mm3 (1.8-7.7) H 01/01/22 14:42 Band Neutrophils # 0.0 K/mm3 01/01/22 14:42 Lymphocytes # (Manual) 0.2 K/mm3 (1.2-5.4) L 01/01/22 14:42 Abs React Lymphs (Man) 0.0 K/mm3 01/01/22 14:42 Monocytes # (Manual) 0.1 K/mm3 (0.0-0.8) 01/01/22 14:42 Eosinophils # (Manual) 0.0 K/mm3 (0.0-0.4) 01/01/22 14:42 Basophils # (Manual) 0.0 K/mm3 (0.0-0.1) 01/01/22 14:42 Metamyelocytes # 0.1 K/mm3 01/01/22 14:42 Myelocytes # 0.0 K/mm3 01/01/22 14:42 Promyelocytes # 0.0 K/mm3 01/01/22 14:42 Blast Cells # 0.0 K/mm3 01/01/22 14:42 WBC Morphology Not Reportable 01/01/22 14:42 Hypersegmented Neuts Not Reportable 01/01/22 14:42 Hyposegmented Neuts Few 01/01/22 14:42 Hypogranular Neuts Not Reportable 01/01/22 14:42 Smudge Cells Not Reportable 01/01/22 14:42 Toxic Granulation Not Reportable 01/01/22 14:42 Toxic Vacuolation Not Reportable 01/01/22 14:42 Dohle Bodies Not Reportable 01/01/22 14:42 Pelger-Huet Anomaly Not Reportable 01/01/22 14:42 Pearl Rods Not Reportable 01/01/22 14:42 Platelet Estimate Consistent w auto 01/01/22 14:42 Clumped Platelets Not Reportable 01/01/22 14:42 Plt Clumps, EDTA Not Reportable 01/01/22 14:42 Large Platelets Rare 01/01/22 14:42 Giant Platelets Not Reportable 01/01/22 14:42 Platelet Satelliting Not Reportable 01/01/22 14:42 Plt Morphology Comment Not Reportable 01/01/22 14:42 RBC Morphology Not Reportable 01/01/22 14:42 Dimorphic RBCs Not Reportable 01/01/22 14:42 Polychromasia Not Reportable 01/01/22 14:42 Hypochromasia Not Reportable 01/01/22 14:42 Poikilocytosis 1+ 01/01/22 14:42 Anisocytosis Not Reportable 01/01/22 14:42 Microcytosis Not Reportable 01/01/22 14:42 Macrocytosis Not Reportable 01/01/22 14:42 Spherocytes Few 01/01/22 14:42 Pappenheimer Bodies Not Reportable 01/01/22 14:42 Sickle Cells Not Reportable 01/01/22 14:42 Target Cells Not Reportable 01/01/22 14:42 Tear Drop Cells Not Reportable 01/01/22 14:42 Ovalocytes Not Reportable 01/01/22 14:42 Stomatocytes Few 01/01/22 14:42 Helmet Cells Not Reportable 01/01/22 14:42 [place] Bodies Not Reportable 01/01/22 14:42 [place] Rings Not Reportable 01/01/22 14:42 [place] Cells Not Reportable 01/01/22 14:42 Bite Cells Not Reportable 01/01/22 14:42 Crenated Cell Not Reportable 01/01/22 14:42 Elliptocytes Not Reportable 01/01/22 14:42 Acanthocytes (Spur) Not Reportable 01/01/22 14:42 Rouleaux Not Reportable 01/01/22 14:42 Hemoglobin C Crystals Not Reportable 01/01/22 14:42 Schistocytes Not Reportable 01/01/22 14:42 Malaria parasites Not Reportable 01/01/22 14:42 Nicholas Bodies Not Reportable 01/01/22 14:42 Hem Pathologist Commnt No 01/01/22 14:42 PT 14.7 Sec. (12.2-14.9) 01/01/22 14:42 INR 1.01 (0.87-1.13) 01/01/22 14:42 APTT 35.8 Sec. (24.2-36.6) 01/01/22 14:42 Sodium 133 mmol/L (137-145) L 01/03/22 05:04 Potassium 4.2 mmol/L (3.6-5.0) 01/03/22 05:04 Chloride 105.0 mmol/L (98-107) 01/03/22 05:04 Carbon Dioxide 17 mmol/L (22-30) L 01/03/22 05:04 Anion Gap 15 mmol/L 01/03/22 05:04 BUN 49 mg/dL (7-17) H 01/03/22 05:04 Creatinine 1.2 mg/dL (0.6-1.2) 01/03/22 05:04 Estimated GFR 44 ml/min 01/03/22 05:04 BUN/Creatinine Ratio 41 % 01/03/22 05:04 Glucose 205 mg/dL (65-100) H 01/03/22 05:04 POC Glucose 131 mg/dL (70-105) H 01/09/22 07:36 Hemoglobin A1c 7.4 % (4-6) H 01/03/22 05:04 Lactic Acid 0.80 mmol/L (0.7-2.0) 01/01/22 20:30 Calcium 8.9 mg/dL (8.4-10.2) 01/03/22 05:04 Magnesium 2.40 mg/dL (1.7-2.3) H 01/03/22 05:04 Total Bilirubin 0.90 mg/dL (0.1-1.2) 01/01/22 14:42 AST 91 units/L (5-40) H 01/01/22 14:42 ALT 45 units/L (7-56) 01/01/22 14:42 Alkaline Phosphatase 117 units/L (35-129) 01/01/22 14:42 Troponin T < 0.010 ng/mL (0.00-0.029) 01/01/22 14:42 Total Protein 6.4 g/dL (6.3-8.2) 01/01/22 14:42 Albumin 3.7 g/dL (3.9-5) L 01/01/22 14:42 Albumin/Globulin Ratio 1.4 % 01/01/22 14:42 Lipase 49 units/L (13-60) 01/01/22 14:42 Urine Color Yellow (Yellow) 01/01/22 16:43 Urine Turbidity Cloudy (Clear) 01/01/22 16:43 Urine pH 6.0 (5.0-7.0) 01/01/22 16:43 Ur Specific [place] 1.013 (1.003-1.030) 01/01/22 16:43 Urine Protein 30 mg/dl mg/dL (Negative) 01/01/22 16:43 Urine Glucose (UA) >=500 mg/dL (Negative) 01/01/22 16:43 Urine Ketones Neg mg/dL (Negative) 01/01/22 16:43 Urine Blood Lg (Negative) 01/01/22 16:43 Urine Nitrite Neg (Negative) 01/01/22 16:43 Urine Bilirubin Neg (Negative) 01/01/22 16:43 Urine Urobilinogen < 2.0 mg/dL (<2.0) 01/01/22 16:43 Ur Leukocyte Esterase Lg (Negative) 01/01/22 16:43 Urine WBC (Auto) > 182.0 /HPF (0.0-6.0) H 01/01/22 16:43 Urine RBC (Auto) 36.0 /HPF (0.0-6.0) 01/01/22 16:43 U Epithel Cells (Auto) 4.0 /HPF (0-13.0) 01/01/22 16:43 Urine Bacteria (Auto) 4+ /HPF (Negative) 01/01/22 16:43 Urine WBC Clumps 3+ /HPF 01/01/22 16:43 Urine Mucus Few /HPF 01/01/22 16:43 [place]/IV: Voiding Method Toilet Active Medications - Current Medications Current Medications: Generic Name Dose Route Start Last Admin Trade Name Freq PRN Reason Stop Dose Admin Acetaminophen 650 mg 01/01/22 19:33 01/07/22 16:01 Acetaminophen 325 Mg Tab PO 650 mg Q4H PRN Administration Pain MILD(1-3)/Fever >100.5/WHITE Albuterol 2.5 mg 01/01/22 19:33 01/01/22 22:28 Albuterol 2.5 Mg/3 Ml Nebu IH 2.5 mg Q4HRT PRN Administration Shortness Of Breath Dextrose 0 ml 01/01/22 19:47 Dextrose 50% In Water (25gm) 50 Ml Syringe IV Q30MIN PRN Hypoglycemia Protocol Hydralazine HCl 10 mg 01/04/22 22:05 01/04/22 23:23 Hydralazine 20 Mg/1 Ml Inj IV 10 mg Q6H PRN Administration Blood Pressure Hydromorphone HCl 0.5 mg 01/01/22 19:33 01/02/22 23:40 Hydromorphone 0.5 Mg/0.5 Ml Inj IV 0.5 mg Q23H PRN Administration Pain , Severe (7-10) Sodium Chloride 1,000 mls @ 100 mls/hr 01/01/22 19:45 01/04/22 09:09 Nacl 0.9% 1000 Ml IV 100 mls/hr DIRECT JOAN Administration Ertapenem 1 gm/ Sodium 50 mls @ 100 mls/hr 01/06/22 12:00 01/09/22 09:31 Chloride IV 01/16/22 10:29 100 mls/hr QDAY JOAN Administration Insulin Human Isoph/Insulin Regular 10 unit 01/02/22 18:00 01/09/22 09:29 Insulin Nph/Regular 70/30 Inj SUB-Q 10 unit BIDDIAB JOAN Administration Insulin Human Lispro 0 unit 01/01/22 22:00 01/09/22 09:27 Insulin Lispro 100 Unit/Ml SUB-Q Not Given ACHS [facility] Protocol Magnesium Hydroxide 30 ml 01/03/22 15:44 01/03/22 16:38 Magnesium Hydroxide (Mom) Oral Liqd Udc PO 30 ml ONCE JOAN Administration Ondansetron HCl 4 mg 01/01/22 19:33 01/02/22 22:48 Ondansetron 4 Mg/2 Ml Inj IV 4 mg Q8H PRN Administration Nausea And Vomiting Oxycodone/Acetaminophen 1 tab 01/01/22 19:33 01/09/22 05:19 Oxycodone /Acetaminophen 5-325mg Tab PO 1 tab Q16H PRN Administration Pain, Moderate (4-6) Pseudoephedrine/Acetam/Chlorphenir 10 ml 01/03/22 20:59 01/04/22 23:22 Guaifenesin/Codeine 100-10mg Oral Liqd 5 Ml PO 10 ml Q4H PRN Administration Cough Sodium Chloride 10 ml 01/01/22 22:00 01/08/22 21:47 Sodium Chloride 0.9% 10 Ml Flush Syringe IV 10 ml BID JOAN Administration Sodium Chloride 10 ml 01/01/22 19:33 Sodium Chloride 0.9% 10 Ml Flush Syringe IV PRN PRN LINE FLUSH Nutrition/Malnutrition Assess - Dietary Evaluation Nutrition/Malnutrition Findings: Nutrition Notes Start: 01/03/22 13:42 Freq: Status: Active Protocol: Document 01/03/22 13:42 RS (Rec: 01/03/22 14:33 RS [id number]) Nutrition Notes Need for Assessment generated from: MD Order,Education Initial or Follow up Assessment Current Diagnosis Acute Kidney Injury,Diabetes Other Pertinent Diagnosis Pyelonephritis, UTI, Vascular Dementia, Cerebral Atherosclerosis Current Diet Consistent CHO Labs/Tests Na:133 CO2:17 BUN:49 Glu:205 HgbA1c: 7.4 Pertinent Medications Reviewed Height 5 ft 3 in Weight 73.2 kg [place] Body Weight (kg) 52.27 BMI 28.5 Weight change and time frame MIRANDA wt hx Weight Status Appropriate Subjective/Other Information MD consult for DM diet education. Pt has vascular dementia along with language barrier. Diet education innapropriate at this time. Pt reports nausea along with diminished appetite before admission. Pt consuming 75% of meals and is on fluid restriction with strict I&Os. Percent of energy/protein needs met: 98%/94% GI Symptoms Nausea Current % PO Good (75-100%) Minimum of two criteria No physical signs of malnutrition #1 Nutrition Diagnosis No nutrition diagnosis at this time Is patient on ventilator? No Is Patient Ambulatory and/or Out of Bed Yes REE-(Breeding-[facility]-ambulatory/OOB) [ [id number] [id number]] [facility] Additional Notes Protein: 73-88g/day (1-1.2g/kg BW/day) Fluid needs: 1500mL or per MD Nutrition Intervention Anticipated Discharge Needs: Consistent CHO Revisit per MD consult or patient Sign Off request:
[2022-01-09] MEDS: guaiFENesin/CODEINE 100-10MG ORAL LIQD 5 ML PO PRN (21:56)
[2022-01-10 05:26] LABS: BUN/Creatinine Ratio 18; Blood Urea Nitrogen 14 mg/dL (7-17); Calcium 8.9 mg/dL (8.4-10.2); Hemolysis Index 1
[2022-01-10] MEDS: INSULIN LISPRO 100 UNIT/ML SUB-Q SCH ×4 (07:58→22:36)
[2022-01-10] MEDS: ERTAPENEM 1 GM in SODIUM CHLORIDE 0.9% 50 ML IV SCH (09:22)
[2022-01-10] MEDS: INSULIN NPH/REGULAR 70/30 INJ SUB-Q SCH ×2 (09:22→18:32)
[2022-01-10] MEDS: guaiFENesin/CODEINE 100-10MG ORAL LIQD 5 ML PO PRN ×2 (13:50→22:38)
[2022-01-10] MEDS: CETIRIZINE 10 MG TAB PO SCH (13:51)
[2022-01-10] MEDS: oxyCODONE /ACETAMINOPHEN 5-325MG TAB PO PRN (18:32)
[2022-01-10] MEDS ORDERED: FUROSEMIDE 40 MG/4 ML INJ IV ONE (18:47)
--- NOTE | 2022-01-10 18:49 | Progress Note ---
Assessment and Plan Assessment and plan: Conversations through the bilingual [[place] to [place] ]granddaughter at the bedside. --Sepsis due to ESBL urinary tract infection; s/p Levaquin, currently on ertapenem Upon discharge transition to meropenem 500 mg IV every 8 hours stop date 01/16/2022 hours , Patient already has midline -- Acute pyelonephritis/cultures positive for ESBL IV fluids, DC Levaquin started ertapenem Follow ID technical healthcare consultant recommendations --UTI (urinary tract infection) Received empiric antibiotics, ESBL positive Change to ertapenem, requested ID consult --severe hyperglycemia/moderate control Accu-Chek sliding scale coverage changed to high scale, Hemoglobin A1c 7.4 long-acting insulin 70/30 10 units twice a day diabetic education, diabetic diet education Home health nurse at discharge for disease monitoring, --Volume depletion/dehydration resolved DC IV fluids, 1 dose of Lasix --Acute kidney injury ([place]) /resolved with acute tubular necrosis (ATN) Resolved, renal function within normal limits Continue supportive care --History of vascular dementia Verbal prompting, verbal redirection, benzodiazepine therapy as clinically indicated. --Cerebral atherosclerosis Antiplatelet therapy, risk factor reduction, And supportive care. --Hyponatremia/resolved Monitor electrolytes . -- DVT prophylaxis SCD to bilateral lower extremities while in bed, --Advance care plannin min Disease education conducted, care plan discussed, diagnosis discussed, , prognosis discussed, patient is full code. Patient knowledges understanding and agreement with care plan, +30 minutes. --Preventive health care +30 minutes. Patient counseled regarding home safety measures, accident avoidance, , balanced diet, outpatient follow-up with primary care physician for all age and risk factor appropriate screening test. Closely monitor the patient and adjust management as needed Plan of care reviewed with the patient [through interpretation Through the bilingual family member ]and the family at the bedside 01/04/2022; urine cultures positive for gram-negative rods Patient is already on Levaquin, follow sensitivities And adjust antibiotics as needed Increase ambulation as tolerated Possible discharge in 1 to 2 days if stable 01/06/2022; urine cultures ESBL positive DC Levaquin start ertapenem, contact isolation ID consulted 01/07/22; ID recommended to continue ertapenem during the hospital stay And switch to meropenem 500 to 8 hours IV for 1 week stop date 01/16/2022 01/08/2022 Disposition; case management to set up long-term antibiotics Patient already got midline placed DC planning per case management[patient has no resources] Discharge in 1 to 2 days if stable 01/09/2022; awaiting long-term antibiotics set up for case management DC planning per case management 01/10/22 patient feels better;, no new complaints Awaiting long-term antibiotics DC planning per case management History Interval history: Bilingual patient's granddaughter in the room assisting with conversation I have seen and examined the patient at the bedside Patient's chart and medications reviewed No new complaints Vital signs noted Hospitalist Physical - Constitutional Vitals: Temp Pulse Resp BP Pulse Ox 98.4 F 61 18 149/50 95 01/10/22 11:51 01/10/22 11:51 01/10/22 11:51 01/10/22 11:51 01/10/22 11:51 General appearance: Present: no acute distress, well-nourished - EENT Eyes: Present: PERRL, EOM intact - Neck Neck: Present: supple, normal ROM - Respiratory Respiratory effort: normal Respiratory: bilateral: diminished, negative: rales, rhonchi, wheezing - Cardiovascular Rhythm: regular Heart Sounds: Present: S1 & S2 - Extremities Extremities: no ischemia, No edema - Abdominal General gastrointestinal: soft, non-tender, non-distended, normal bowel sounds - Integumentary Integumentary: Present: clear, warm - Psychiatric Psychiatric: appropriate mood/affect, cooperative - Neurologic Neurologic: CNII-XII intact, moves all extremities HEART Score - HEART Score Troponin: Troponin T < 0.010 ng/mL (0.00-0.029) 01/01/22 14:42 Results - Labs CBC & Chem 7: 01/01/22 14:42 01/10/22 04:22 Labs: Laboratory Last Values WBC 9.0 K/mm3 (4.5-11.0) 01/01/22 14:42 RBC 3.85 M/mm3 (3.65-5.03) 01/01/22 14:42 Hgb 11.7 gm/dl (10.1-14.3) 01/01/22 14:42 Hct 36.1 % (30.3-42.9) 01/01/22 14:42 MCV 94 fl (79-97) 01/01/22 14:42 MCH 30 pg (28-32) 01/01/22 14:42 MCHC 32 % (30-34) 01/01/22 14:42 RDW 15.0 % (13.2-15.2) 01/01/22 14:42 Plt Count 190 K/mm3 (140-440) 01/01/22 14:42 Add Manual Diff Complete 01/01/22 14:42 Total Counted 100 01/01/22 14:42 Seg Neutrophils % Transformer Molder 01/01/22 14:42 Seg Neuts % (Manual) 96.0 % (40.0-70.0) H 01/01/22 14:42 Band Neutrophils % 0 % 01/01/22 14:42 Lymphocytes % (Manual) 2.0 % (13.4-35.0) L 01/01/22 14:42 Reactive Lymphs % (Man) 0 % 01/01/22 14:42 Monocytes % (Manual) 1.0 % (0.0-7.3) 01/01/22 14:42 Eosinophils % (Manual) 0 % (0.0-4.3) 01/01/22 14:42 Basophils % (Manual) 0 % (0.0-1.8) 01/01/22 14:42 Metamyelocytes % 1.0 % 01/01/22 14:42 Myelocytes % 0 % 01/01/22 14:42 Promyelocytes % 0 % 01/01/22 14:42 Blast Cells % 0 % 01/01/22 14:42 Nucleated RBC % Not Reportable 01/01/22 14:42 Seg Neutrophils # Man 8.6 K/mm3 (1.8-7.7) H 01/01/22 14:42 Band Neutrophils # 0.0 K/mm3 01/01/22 14:42 Lymphocytes # (Manual) 0.2 K/mm3 (1.2-5.4) L 01/01/22 14:42 Abs React Lymphs (Man) 0.0 K/mm3 01/01/22 14:42 Monocytes # (Manual) 0.1 K/mm3 (0.0-0.8) 01/01/22 14:42 Eosinophils # (Manual) 0.0 K/mm3 (0.0-0.4) 01/01/22 14:42 Basophils # (Manual) 0.0 K/mm3 (0.0-0.1) 01/01/22 14:42 Metamyelocytes # 0.1 K/mm3 01/01/22 14:42 Myelocytes # 0.0 K/mm3 01/01/22 14:42 Promyelocytes # 0.0 K/mm3 01/01/22 14:42 Blast Cells # 0.0 K/mm3 01/01/22 14:42 WBC Morphology Not Reportable 01/01/22 14:42 Hypersegmented Neuts Not Reportable 01/01/22 14:42 Hyposegmented Neuts Few 01/01/22 14:42 Hypogranular Neuts Not Reportable 01/01/22 14:42 Smudge Cells Not Reportable 01/01/22 14:42 Toxic Granulation Not Reportable 01/01/22 14:42 Toxic Vacuolation Not Reportable 01/01/22 14:42 Dohle Bodies Not Reportable 01/01/22 14:42 Pelger-Huet Anomaly Not Reportable 01/01/22 14:42 Pearl Rods Not Reportable 01/01/22 14:42 Platelet Estimate Consistent w auto 01/01/22 14:42 Clumped Platelets Not Reportable 01/01/22 14:42 Plt Clumps, EDTA Not Reportable 01/01/22 14:42 Large Platelets Rare 01/01/22 14:42 Giant Platelets Not Reportable 01/01/22 14:42 Platelet Satelliting Not Reportable 01/01/22 14:42 Plt Morphology Comment Not Reportable 01/01/22 14:42 RBC Morphology Not Reportable 01/01/22 14:42 Dimorphic RBCs Not Reportable 01/01/22 14:42 Polychromasia Not Reportable 01/01/22 14:42 Hypochromasia Not Reportable 01/01/22 14:42 Poikilocytosis 1+ 01/01/22 14:42 Anisocytosis Not Reportable 01/01/22 14:42 Microcytosis Not Reportable 01/01/22 14:42 Macrocytosis Not Reportable 01/01/22 14:42 Spherocytes Few 01/01/22 14:42 Pappenheimer Bodies Not Reportable 01/01/22 14:42 Sickle Cells Not Reportable 01/01/22 14:42 Target Cells Not Reportable 01/01/22 14:42 Tear Drop Cells Not Reportable 01/01/22 14:42 Ovalocytes Not Reportable 01/01/22 14:42 Stomatocytes Few 01/01/22 14:42 Helmet Cells Not Reportable 01/01/22 14:42 Dubose-Kellogg Bodies Not Reportable 01/01/22 14:42 Omak Rings Not Reportable 01/01/22 14:42 Nishant Cells Not Reportable 01/01/22 14:42 Bite Cells Not Reportable 01/01/22 14:42 Crenated Cell Not Reportable 01/01/22 14:42 Elliptocytes Not Reportable 01/01/22 14:42 Acanthocytes (Spur) Not Reportable 01/01/22 14:42 Rouleaux Not Reportable 01/01/22 14:42 Hemoglobin C Crystals Not Reportable 01/01/22 14:42 Schistocytes Not Reportable 01/01/22 14:42 Malaria parasites Not Reportable 01/01/22 14:42 Nicholas Bodies Not Reportable 01/01/22 14:42 Hem Pathologist Commnt No 01/01/22 14:42 PT 14.7 Sec. (12.2-14.9) 01/01/22 14:42 INR 1.01 (0.87-1.13) 01/01/22 14:42 APTT 35.8 Sec. (24.2-36.6) 01/01/22 14:42 Sodium 137 mmol/L (137-145) 01/10/22 04:22 Potassium 4.1 mmol/L (3.6-5.0) 01/10/22 04:22 Chloride 103.5 mmol/L (98-107) 01/10/22 04:22 Carbon Dioxide 24 mmol/L (22-30) 01/10/22 04:22 Anion Gap 14 mmol/L 01/10/22 04:22 BUN 14 mg/dL (7-17) 01/10/22 04:22 Creatinine 0.8 mg/dL (0.6-1.2) 01/10/22 04:22 Estimated GFR > 60 ml/min 01/10/22 04:22 BUN/Creatinine Ratio 18 % 01/10/22 04:22 Glucose 122 mg/dL (65-100) H 01/10/22 04:22 POC Glucose 164 mg/dL (70-105) H 01/10/22 16:46 Hemoglobin A1c 7.4 % (4-6) H 01/03/22 05:04 Lactic Acid 0.80 mmol/L (0.7-2.0) 01/01/22 20:30 Calcium 8.9 mg/dL (8.4-10.2) 01/10/22 04:22 Magnesium 2.00 mg/dL (1.7-2.3) 01/10/22 04:22 Total Bilirubin 0.90 mg/dL (0.1-1.2) 01/01/22 14:42 AST 91 units/L (5-40) H 01/01/22 14:42 ALT 45 units/L (7-56) 01/01/22 14:42 Alkaline Phosphatase 117 units/L (35-129) 01/01/22 14:42 Troponin T < 0.010 ng/mL (0.00-0.029) 01/01/22 14:42 Total Protein 6.4 g/dL (6.3-8.2) 01/01/22 14:42 Albumin 3.7 g/dL (3.9-5) L 01/01/22 14:42 Albumin/Globulin Ratio 1.4 % 01/01/22 14:42 Lipase 49 units/L (13-60) 01/01/22 14:42 Urine Color Yellow (Yellow) 01/01/22 16:43 Urine Turbidity Cloudy (Clear) 01/01/22 16:43 Urine pH 6.0 (5.0-7.0) 01/01/22 16:43 Ur Specific [place] 1.013 (1.003-1.030) 01/01/22 16:43 Urine Protein 30 mg/dl mg/dL (Negative) 01/01/22 16:43 Urine Glucose (UA) >=500 mg/dL (Negative) 01/01/22 16:43 Urine Ketones Neg mg/dL (Negative) 01/01/22 16:43 Urine Blood Lg (Negative) 01/01/22 16:43 Urine Nitrite Neg (Negative) 01/01/22 16:43 Urine Bilirubin Neg (Negative) 01/01/22 16:43 Urine Urobilinogen < 2.0 mg/dL (<2.0) 01/01/22 16:43 Ur Leukocyte Esterase Lg (Negative) 01/01/22 16:43 Urine WBC (Auto) > 182.0 /HPF (0.0-6.0) H 01/01/22 16:43 Urine RBC (Auto) 36.0 /HPF (0.0-6.0) 01/01/22 16:43 U Epithel Cells (Auto) 4.0 /HPF (0-13.0) 01/01/22 16:43 Urine Bacteria (Auto) 4+ /HPF (Negative) 01/01/22 16:43 Urine WBC Clumps 3+ /HPF 01/01/22 16:43 Urine Mucus Few /HPF 01/01/22 16:43 Microbiology: Microbiology 01/07/22 16:37 Urine,Clean Catch Urine Culture - Final NO GROWTH AFTER 48 HOURS [place]/IV: Voiding Method Toilet Active Medications - Current Medications Current Medications: Generic Name Dose Route Start Last Admin Trade Name Freq PRN Reason Stop Dose Admin Acetaminophen 650 mg 01/01/22 19:33 01/07/22 16:01 Acetaminophen 325 Mg Tab PO 650 mg Q4H PRN Administration Pain MILD(1-3)/Fever >100.5/WHITE Albuterol 2.5 mg 01/01/22 19:33 01/01/22 22:28 Albuterol 2.5 Mg/3 Ml Nebu IH 2.5 mg Q4HRT PRN Administration Shortness Of Breath Cetirizine HCl 10 mg 01/10/22 12:00 01/10/22 13:51 Cetirizine 10 Mg Tab PO 10 mg QDAY JOAN Administration Dextrose 0 ml 01/01/22 19:47 Dextrose 50% In Water (25gm) 50 Ml Syringe IV Q30MIN PRN Hypoglycemia Protocol Hydralazine HCl 10 mg 01/04/22 22:05 01/04/22 23:23 Hydralazine 20 Mg/1 Ml Inj IV 10 mg Q6H PRN Administration Blood Pressure Hydromorphone HCl 0.5 mg 01/01/22 19:33 01/02/22 23:40 Hydromorphone 0.5 Mg/0.5 Ml Inj IV 0.5 mg Q23H PRN Administration Pain , Severe (7-10) Sodium Chloride 1,000 mls @ 100 mls/hr 01/01/22 19:45 01/04/22 09:09 Nacl 0.9% 1000 Ml IV 100 mls/hr DIRECT JOAN Administration Ertapenem 1 gm/ Sodium 50 mls @ 100 mls/hr 01/06/22 12:00 01/10/22 10:37 Chloride IV 01/16/22 10:29 Infused QDAY JOAN Infusion Insulin Human Isoph/Insulin Regular 10 unit 01/02/22 18:00 01/10/22 18:32 Insulin Nph/Regular 70/30 Inj SUB-Q 10 unit BIDDIAB JOAN Administration Insulin Human Lispro 0 unit 01/01/22 22:00 01/10/22 18:32 Insulin Lispro 100 Unit/Ml SUB-Q Not Given ACHS JOAN Protocol Magnesium Hydroxide 30 ml 01/03/22 15:44 01/03/22 16:38 Magnesium Hydroxide (Mom) Oral Liqd Udc PO 30 ml ONCE JOAN Administration Ondansetron HCl 4 mg 01/01/22 19:33 01/02/22 22:48 Ondansetron 4 Mg/2 Ml Inj IV 4 mg Q8H PRN Administration Nausea And Vomiting Oxycodone/Acetaminophen 1 tab 01/01/22 19:33 01/10/22 18:32 Oxycodone /Acetaminophen 5-325mg Tab PO 1 tab Q16H PRN Administration Pain, Moderate (4-6) Pseudoephedrine/Acetam/Chlorphenir 10 ml 01/03/22 20:59 01/10/22 13:50 Guaifenesin/Codeine 100-10mg Oral Liqd 5 Ml PO 10 ml Q4H PRN Administration Cough Sodium Chloride 10 ml 01/01/22 22:00 01/10/22 10:38 Sodium Chloride 0.9% 10 Ml Flush Syringe IV 10 ml BID JOAN Administration Sodium Chloride 10 ml 01/01/22 19:33 Sodium Chloride 0.9% 10 Ml Flush Syringe IV PRN PRN LINE FLUSH Nutrition/Malnutrition Assess - Dietary Evaluation Nutrition/Malnutrition Findings: Nutrition Notes Start: 01/03/22 13:42 Freq: Status: Active Protocol: Document 01/03/22 13:42 RS (Rec: 01/03/22 14:33 RS [id number]) Nutrition Notes Need for Assessment generated from: MD Order,Education Initial or Follow up Assessment Current Diagnosis Acute Kidney Injury,Diabetes Other Pertinent Diagnosis Pyelonephritis, UTI, Vascular Dementia, Cerebral Atherosclerosis Current Diet Consistent CHO Labs/Tests Na:133 CO2:17 BUN:49 Glu:205 HgbA1c: 7.4 Pertinent Medications Reviewed Height 5 ft 3 in Weight 73.2 kg [place] Body Weight (kg) 52.27 BMI 28.5 Weight change and time frame MIRANDA wt hx Weight Status Appropriate Subjective/Other Information MD consult for DM diet education. Pt has vascular dementia along with language barrier. Diet education innapropriate at this time. Pt reports nausea along with diminished appetite before admission. Pt consuming 75% of meals and is on fluid restriction with strict I&Os. Percent of energy/protein needs met: 98%/94% GI Symptoms Nausea Current % PO Good (75-100%) Minimum of two criteria No physical signs of malnutrition #1 Nutrition Diagnosis No nutrition diagnosis at this time Is patient on ventilator? No Is Patient Ambulatory and/or Out of Bed Yes REE-([facility]-ambulatory/OOB) [ [id number] [id number]] Calculation Used for Recommendations [facility] Additional Notes Protein: 73-88g/day (1-1.2g/kg BW/day) Fluid needs: 1500mL or per MD Nutrition Intervention Anticipated Discharge Needs: Consistent CHO Revisit per MD consult or patient Sign Off request:
--- NOTE | 2022-01-11 01:36 | Progress Note ---
Assessment and Plan Assessment and plan: Conversations through the bilingual [Russian to Croatian ]granddaughter at the bedside. --Sepsis due to ESBL urinary tract infection; currently on ertapenem Upon discharge transition to meropenem 500 mg IV every 8 hours stop date 01/16/2022 hours , Patient already has midline Awaiting to set up home IV antibiotics . -- Acute pyelonephritis/cultures positive for ESBL On ertapenem daily --UTI (urinary tract infection) Received empiric antibiotics, ESBL positive Change to ertapenem, ID following --severe hyperglycemia/moderate control Accu-Chek sliding scale coverage changed to high scale, Hemoglobin A1c 7.4 long-acting insulin 70/30 10 units twice a day diabetic education, diabetic diet education Home health nurse at discharge for disease monitoring, --Volume depletion/dehydration resolved DC IV fluids, 1 dose of Lasix --Acute kidney injury (DICKSON) /resolved with acute tubular necrosis (ATN) Resolved, renal function within normal limits Continue supportive care --History of vascular dementia Verbal prompting, verbal redirection, benzodiazepine therapy as clinically indicated. --Cerebral atherosclerosis Antiplatelet therapy, risk factor reduction, And supportive care. --Hyponatremia/resolved Monitor electrolytes . -- DVT prophylaxis SCD to bilateral lower extremities while in bed, Subcu Lovenox --Advance care plannin min Disease education conducted, care plan discussed, diagnosis discussed, , prognosis discussed, patient is full code. Patient knowledges understanding and agreement with care plan, +30 minutes. --Preventive health care +30 minutes. Patient counseled regarding home safety measures, accident avoidance, , balanced diet, outpatient follow-up with primary care physician for all age and risk factor appropriate screening test. Closely monitor the patient and adjust management as needed Plan of care reviewed with the patient [through interpretation Through the bilingual family member ]and the family at the bedside Brief history; and daily Hospital course 71-year-old female patient was admitted with acute pyelonephritis and urinary tract infection Started on empiric antibiotics, cultures were positive for ESBL, started on ertapenem IV evaluated by ID, recommended long-term antibiotics stop date 01/16/2022 Case management was processing home antibiotic set up, social issues. DC planning per case management 01/04/2022; urine cultures positive for gram-negative rods Patient is already on Levaquin, follow sensitivities And adjust antibiotics as needed Increase ambulation as tolerated Possible discharge in 1 to 2 days if stable 01/06/2022; urine cultures ESBL positive DC Levaquin start ertapenem, contact isolation ID consulted 01/07/22; ID recommended to continue ertapenem during the hospital stay And switch to meropenem 500 to 8 hours IV for 1 week stop date 01/16/2022 01/08/2022 Disposition; case management to set up long-term antibiotics Patient already got midline placed DC planning per case management[patient has no resources] Discharge in 1 to 2 days if stable 01/09/2022; awaiting long-term antibiotics set up for case management DC planning per case management 01/10/22 patient feels better;, no new complaints Awaiting long-term antibiotics DC planning per case management 01/11/2022; patient awaiting long-term home IV antibiotics set up Multiple social issues, DC planning per case management History Interval history: I have seen and examined the patient at the bedside Patient's chart and medications reviewed Patient complains of generalized weakness Vital signs noted Hospitalist Physical - Constitutional Vitals: Temp Pulse Resp BP Pulse Ox 98.9 F 64 16 162/48 93 01/10/22 22:23 01/10/22 22:23 01/10/22 22:23 01/10/22 22:23 01/10/22 22:23 General appearance: Present: no acute distress, well-nourished - EENT Eyes: Present: PERRL, EOM intact - Neck Neck: Present: supple, normal ROM - Respiratory Respiratory effort: normal Respiratory: bilateral: diminished, negative: rales, rhonchi, wheezing - Cardiovascular Rhythm: regular Heart Sounds: Present: S1 & S2 - Extremities Extremities: no ischemia, No edema - Abdominal General gastrointestinal: soft, non-tender, non-distended, normal bowel sounds - Integumentary Integumentary: Present: clear, warm - Psychiatric Psychiatric: appropriate mood/affect, cooperative - Neurologic Neurologic: CNII-XII intact, moves all extremities HEART Score - HEART Score Troponin: Troponin T < 0.010 ng/mL (0.00-0.029) 01/01/22 14:42 Results - Labs CBC & Chem 7: 01/01/22 14:42 01/10/22 04:22 Labs: Laboratory Last Values WBC 9.0 K/mm3 (4.5-11.0) 01/01/22 14:42 RBC 3.85 M/mm3 (3.65-5.03) 01/01/22 14:42 Hgb 11.7 gm/dl (10.1-14.3) 01/01/22 14:42 Hct 36.1 % (30.3-42.9) 01/01/22 14:42 MCV 94 fl (79-97) 01/01/22 14:42 MCH 30 pg (28-32) 01/01/22 14:42 MCHC 32 % (30-34) 01/01/22 14:42 RDW 15.0 % (13.2-15.2) 01/01/22 14:42 Plt Count 190 K/mm3 (140-440) 01/01/22 14:42 Add Manual Diff Complete 01/01/22 14:42 Total Counted 100 01/01/22 14:42 Seg Neutrophils % Line Out Worker 01/01/22 14:42 Seg Neuts % (Manual) 96.0 % (40.0-70.0) H 01/01/22 14:42 Band Neutrophils % 0 % 01/01/22 14:42 Lymphocytes % (Manual) 2.0 % (13.4-35.0) L 01/01/22 14:42 Reactive Lymphs % (Man) 0 % 01/01/22 14:42 Monocytes % (Manual) 1.0 % (0.0-7.3) 01/01/22 14:42 Eosinophils % (Manual) 0 % (0.0-4.3) 01/01/22 14:42 Basophils % (Manual) 0 % (0.0-1.8) 01/01/22 14:42 Metamyelocytes % 1.0 % 01/01/22 14:42 Myelocytes % 0 % 01/01/22 14:42 Promyelocytes % 0 % 01/01/22 14:42 Blast Cells % 0 % 01/01/22 14:42 Nucleated RBC % Not Reportable 01/01/22 14:42 Seg Neutrophils # Man 8.6 K/mm3 (1.8-7.7) H 01/01/22 14:42 Band Neutrophils # 0.0 K/mm3 01/01/22 14:42 Lymphocytes # (Manual) 0.2 K/mm3 (1.2-5.4) L 01/01/22 14:42 Abs React Lymphs (Man) 0.0 K/mm3 01/01/22 14:42 Monocytes # (Manual) 0.1 K/mm3 (0.0-0.8) 01/01/22 14:42 Eosinophils # (Manual) 0.0 K/mm3 (0.0-0.4) 01/01/22 14:42 Basophils # (Manual) 0.0 K/mm3 (0.0-0.1) 01/01/22 14:42 Metamyelocytes # 0.1 K/mm3 01/01/22 14:42 Myelocytes # 0.0 K/mm3 01/01/22 14:42 Promyelocytes # 0.0 K/mm3 01/01/22 14:42 Blast Cells # 0.0 K/mm3 01/01/22 14:42 WBC Morphology Not Reportable 01/01/22 14:42 Hypersegmented Neuts Not Reportable 01/01/22 14:42 Hyposegmented Neuts Few 01/01/22 14:42 Hypogranular Neuts Not Reportable 01/01/22 14:42 Smudge Cells Not Reportable 01/01/22 14:42 Toxic Granulation Not Reportable 01/01/22 14:42 Toxic Vacuolation Not Reportable 01/01/22 14:42 Dohle Bodies Not Reportable 01/01/22 14:42 Pelger-Huet Anomaly Not Reportable 01/01/22 14:42 Pearl Rods Not Reportable 01/01/22 14:42 Platelet Estimate Consistent w auto 01/01/22 14:42 Clumped Platelets Not Reportable 01/01/22 14:42 Plt Clumps, EDTA Not Reportable 01/01/22 14:42 Large Platelets Rare 01/01/22 14:42 Giant Platelets Not Reportable 01/01/22 14:42 Platelet Satelliting Not Reportable 01/01/22 14:42 Plt Morphology Comment Not Reportable 01/01/22 14:42 RBC Morphology Not Reportable 01/01/22 14:42 Dimorphic RBCs Not Reportable 01/01/22 14:42 Polychromasia Not Reportable 01/01/22 14:42 Hypochromasia Not Reportable 01/01/22 14:42 Poikilocytosis 1+ 01/01/22 14:42 Anisocytosis Not Reportable 01/01/22 14:42 Microcytosis Not Reportable 01/01/22 14:42 Macrocytosis Not Reportable 01/01/22 14:42 Spherocytes Few 01/01/22 14:42 Pappenheimer Bodies Not Reportable 01/01/22 14:42 Sickle Cells Not Reportable 01/01/22 14:42 Target Cells Not Reportable 01/01/22 14:42 Tear Drop Cells Not Reportable 01/01/22 14:42 Ovalocytes Not Reportable 01/01/22 14:42 Stomatocytes Few 01/01/22 14:42 Helmet Cells Not Reportable 01/01/22 14:42 [place] Bodies Not Reportable 01/01/22 14:42 [place] Rings Not Reportable 01/01/22 14:42 Nishant Cells Not Reportable 01/01/22 14:42 Bite Cells Not Reportable 01/01/22 14:42 Crenated Cell Not Reportable 01/01/22 14:42 Elliptocytes Not Reportable 01/01/22 14:42 Acanthocytes (Spur) Not Reportable 01/01/22 14:42 Rouleaux Not Reportable 01/01/22 14:42 Hemoglobin C Crystals Not Reportable 01/01/22 14:42 Schistocytes Not Reportable 01/01/22 14:42 Malaria parasites Not Reportable 01/01/22 14:42 Nicholas Bodies Not Reportable 01/01/22 14:42 Hem Pathologist Commnt No 01/01/22 14:42 PT 14.7 Sec. (12.2-14.9) 01/01/22 14:42 INR 1.01 (0.87-1.13) 01/01/22 14:42 APTT 35.8 Sec. (24.2-36.6) 01/01/22 14:42 Sodium 137 mmol/L (137-145) 01/10/22 04:22 Potassium 4.1 mmol/L (3.6-5.0) 01/10/22 04:22 Chloride 103.5 mmol/L (98-107) 01/10/22 04:22 Carbon Dioxide 24 mmol/L (22-30) 01/10/22 04:22 Anion Gap 14 mmol/L 01/10/22 04:22 BUN 14 mg/dL (7-17) 01/10/22 04:22 Creatinine 0.8 mg/dL (0.6-1.2) 01/10/22 04:22 Estimated GFR > 60 ml/min 01/10/22 04:22 BUN/Creatinine Ratio 18 % 01/10/22 04:22 Glucose 122 mg/dL (65-100) H 01/10/22 04:22 POC Glucose 212 mg/dL (70-105) H 01/10/22 20:48 Hemoglobin A1c 7.4 % (4-6) H 01/03/22 05:04 Lactic Acid 0.80 mmol/L (0.7-2.0) 01/01/22 20:30 Calcium 8.9 mg/dL (8.4-10.2) 01/10/22 04:22 Magnesium 2.00 mg/dL (1.7-2.3) 01/10/22 04:22 Total Bilirubin 0.90 mg/dL (0.1-1.2) 01/01/22 14:42 AST 91 units/L (5-40) H 01/01/22 14:42 ALT 45 units/L (7-56) 01/01/22 14:42 Alkaline Phosphatase 117 units/L (35-129) 01/01/22 14:42 Troponin T < 0.010 ng/mL (0.00-0.029) 01/01/22 14:42 Total Protein 6.4 g/dL (6.3-8.2) 01/01/22 14:42 Albumin 3.7 g/dL (3.9-5) L 01/01/22 14:42 Albumin/Globulin Ratio 1.4 % 01/01/22 14:42 Lipase 49 units/L (13-60) 01/01/22 14:42 Urine Color Yellow (Yellow) 01/01/22 16:43 Urine Turbidity Cloudy (Clear) 01/01/22 16:43 Urine pH 6.0 (5.0-7.0) 01/01/22 16:43 Ur Specific White 1.013 (1.003-1.030) 01/01/22 16:43 Urine Protein 30 mg/dl mg/dL (Negative) 01/01/22 16:43 Urine Glucose (UA) >=500 mg/dL (Negative) 01/01/22 16:43 Urine Ketones Neg mg/dL (Negative) 01/01/22 16:43 Urine Blood Lg (Negative) 01/01/22 16:43 Urine Nitrite Neg (Negative) 01/01/22 16:43 Urine Bilirubin Neg (Negative) 01/01/22 16:43 Urine Urobilinogen < 2.0 mg/dL (<2.0) 01/01/22 16:43 Ur Leukocyte Esterase Lg (Negative) 01/01/22 16:43 Urine WBC (Auto) > 182.0 /HPF (0.0-6.0) H 01/01/22 16:43 Urine RBC (Auto) 36.0 /HPF (0.0-6.0) 01/01/22 16:43 U Epithel Cells (Auto) 4.0 /HPF (0-13.0) 01/01/22 16:43 Urine Bacteria (Auto) 4+ /HPF (Negative) 01/01/22 16:43 Urine WBC Clumps 3+ /HPF 01/01/22 16:43 Urine Mucus Few /HPF 01/01/22 16:43 Microbiology: Microbiology 01/07/22 16:37 Urine,Clean Catch Urine Culture - Final NO GROWTH AFTER 48 HOURS [place]/IV: Voiding Method Toilet Active Medications - Current Medications Current Medications: Generic Name Dose Route Start Last Admin Trade Name Freq PRN Reason Stop Dose Admin Acetaminophen 650 mg 01/01/22 19:33 01/07/22 16:01 Acetaminophen 325 Mg Tab PO 650 mg Q4H PRN Administration Pain MILD(1-3)/Fever >100.5/WHITE Albuterol 2.5 mg 01/01/22 19:33 01/01/22 22:28 Albuterol 2.5 Mg/3 Ml Nebu IH 2.5 mg Q4HRT PRN Administration Shortness Of Breath Cetirizine HCl 10 mg 01/10/22 12:00 01/10/22 13:51 Cetirizine 10 Mg Tab PO 10 mg QDAY JOAN Administration Dextrose 0 ml 01/01/22 19:47 Dextrose 50% In Water (25gm) 50 Ml Syringe IV Q30MIN PRN Hypoglycemia Protocol Furosemide 40 mg 01/11/22 10:00 Furosemide 40 Mg/4 Ml Inj IV QDAY JOAN Hydralazine HCl 10 mg 01/04/22 22:05 01/04/22 23:23 Hydralazine 20 Mg/1 Ml Inj IV 10 mg Q6H PRN Administration Blood Pressure Hydromorphone HCl 0.5 mg 01/01/22 19:33 01/02/22 23:40 Hydromorphone 0.5 Mg/0.5 Ml Inj IV 0.5 mg Q23H PRN Administration Pain , Severe (7-10) Ertapenem 1 gm/ Sodium 50 mls @ 100 mls/hr 01/06/22 12:00 01/10/22 10:37 Chloride IV 01/16/22 10:29 Infused QDAY JOAN Infusion Insulin Human Isoph/Insulin Regular 10 unit 01/02/22 18:00 01/10/22 18:32 Insulin Nph/Regular 70/30 Inj SUB-Q 10 unit BIDDIAB JOAN Administration Insulin Human Lispro 0 unit 01/01/22 22:00 01/10/22 22:36 Insulin Lispro 100 Unit/Ml SUB-Q 4 unit ACHS JOAN Administration Protocol Magnesium Hydroxide 30 ml 01/03/22 15:44 01/03/22 16:38 Magnesium Hydroxide (Mom) Oral Liqd Udc PO 30 ml ONCE JOAN Administration Ondansetron HCl 4 mg 01/01/22 19:33 01/02/22 22:48 Ondansetron 4 Mg/2 Ml Inj IV 4 mg Q8H PRN Administration Nausea And Vomiting Oxycodone/Acetaminophen 1 tab 01/01/22 19:33 01/10/22 18:32 Oxycodone /Acetaminophen 5-325mg Tab PO 1 tab Q16H PRN Administration Pain, Moderate (4-6) Pseudoephedrine/Acetam/Chlorphenir 10 ml 01/03/22 20:59 01/10/22 22:38 Guaifenesin/Codeine 100-10mg Oral Liqd 5 Ml PO 10 ml Q4H PRN Administration Cough Sodium Chloride 10 ml 01/01/22 22:00 01/10/22 22:36 Sodium Chloride 0.9% 10 Ml Flush Syringe IV 10 ml BID JOAN Administration Sodium Chloride 10 ml 01/01/22 19:33 Sodium Chloride 0.9% 10 Ml Flush Syringe IV PRN PRN LINE FLUSH Nutrition/Malnutrition Assess - Dietary Evaluation Nutrition/Malnutrition Findings: Nutrition Notes Start: 01/03/22 13:42 Freq: Status: Active Protocol: Document 01/03/22 13:42 RS (Rec: 01/03/22 14:33 RS [email or web address]) Nutrition Notes Need for Assessment generated from: MD Order,Education Initial or Follow up Assessment Current Diagnosis Acute Kidney Injury,Diabetes Other Pertinent Diagnosis Pyelonephritis, UTI, Vascular Dementia, Cerebral Atherosclerosis Current Diet Consistent CHO Labs/Tests Na:133 CO2:17 BUN:49 Glu:205 HgbA1c: 7.4 Pertinent Medications Reviewed Height 5 ft 3 in Weight 73.2 kg [place] Body Weight (kg) 52.27 BMI 28.5 Weight change and time frame MIRANDA wt hx Weight Status Appropriate Subjective/Other Information MD consult for DM diet education. Pt has vascular dementia along with language barrier. Diet education innapropriate at this time. Pt reports nausea along with diminished appetite before admission. Pt consuming 75% of meals and is on fluid restriction with strict I&Os. Percent of energy/protein needs met: 98%/94% GI Symptoms Nausea Current % PO Good (75-100%) Minimum of two criteria No physical signs of malnutrition #1 Nutrition Diagnosis No nutrition diagnosis at this time Is patient on ventilator? No Is Patient Ambulatory and/or Out of Bed Yes REE-([place]-ambulatory/OOB) [ [id number] [id number]] Calculation Used for Recommendations [place] [place] Additional Notes Protein: 73-88g/day (1-1.2g/kg BW/day) Fluid needs: 1500mL or per MD Nutrition Intervention Anticipated Discharge Needs: Consistent CHO Revisit per MD consult or patient Sign Off request:
[2022-01-11] MEDS: INSULIN LISPRO 100 UNIT/ML SUB-Q SCH ×4 (08:13→21:35)
[2022-01-11] MEDS: ERTAPENEM 1 GM in SODIUM CHLORIDE 0.9% 50 ML IV SCH (09:39)
[2022-01-11] MEDS: INSULIN NPH/REGULAR 70/30 INJ SUB-Q SCH ×2 (09:39→17:01)
[2022-01-11] MEDS: oxyCODONE /ACETAMINOPHEN 5-325MG TAB PO PRN (12:48)
[2022-01-11] MEDS: CETIRIZINE 10 MG TAB PO SCH (12:56)
[2022-01-11] MEDS: FUROSEMIDE 40 MG/4 ML INJ IV SCH (12:56)
[2022-01-11] MEDS: HYDROmorphone 0.5 MG/0.5 ML INJ IV PRN (17:02)
[2022-01-11] MEDS: ENOXAPARIN 40 MG/0.4 ML INJ SUB-Q SCH (21:35)
[2022-01-11] MEDS: ACETAMINOPHEN 325 MG TAB PO PRN (22:44)
[2022-01-12] MEDS: INSULIN NPH/REGULAR 70/30 INJ SUB-Q SCH ×2 (08:40→17:32)
[2022-01-12] MEDS: INSULIN LISPRO 100 UNIT/ML SUB-Q SCH ×4 (08:40→22:06)
[2022-01-12] MEDS: CETIRIZINE 10 MG TAB PO SCH (09:50)
[2022-01-12] MEDS: FUROSEMIDE 40 MG/4 ML INJ IV SCH (09:50)
[2022-01-12] MEDS: ERTAPENEM 1 GM in SODIUM CHLORIDE 0.9% 50 ML IV SCH (09:52)
--- NOTE | 2022-01-12 16:51 | Vascular Lab Report ---
DUPLEX DOPPLER LOWER EXTREMITY VEINS, BILATERAL INDICATION / CLINICAL INFORMATION: LLE swelling. TECHNIQUE: Duplex doppler imaging was performed through the veins of both lower extremities using gadiel ous compression and other maneuvers. COMPARISON: None available. FINDINGS: RIGHT COMMON FEMORAL VEIN: Negative. RIGHT FEMORAL VEIN: Negative. RIGHT POPLITEAL VEIN: Negative. RIGHT CALF VEINS: Negative. LEFT COMMON FEMORAL VEIN: Negative. LEFT FEMORAL VEIN: Negative. LEFT POPLITEAL VEIN: Negative. LEFT CALF VEINS: Negative. ADDITIONAL FINDINGS: Left popliteal fossa cyst measuring 4.9 cm. IMPRESSION: 1. No sonographic evidence for DVT in either lower extremity. 2. Left Robison's cyst. Scribed by: Rhoda Adhikari RDMS, JOHNATHAN, MARIZA Scribed: 01/12/2022 3:40 PM I have reviewed the images, agree with this report, and edited this report as needed. Signer Name: Dalton Sandoval MD Signed: 01/12/2022 4:46 PM Workstation Name: [id number]
[2022-01-12] MEDS: oxyCODONE /ACETAMINOPHEN 5-325MG TAB PO PRN (17:31)
--- NOTE | 2022-01-12 18:01 | Progress Note ---
Assessment and Plan 71-year-old female patient was admitted with acute pyelonephritis and urinary tract infection Started on empiric antibiotics, cultures were positive for ESBL, started on ertapenem IV evaluated by ID, recommended long-term antibiotics stop date 01/16/2022 Case management was processing home antibiotic set up, social issues. DC planning per case management 01/04/2022; urine cultures positive for gram-negative rods Patient is already on Levaquin, follow sensitivities And adjust antibiotics as needed Increase ambulation as tolerated Possible discharge in 1 to 2 days if stable 01/06/2022; urine cultures ESBL positive DC Levaquin start ertapenem, contact isolation ID consulted 01/07/22; ID recommended to continue ertapenem during the hospital stay And switch to meropenem 500 to 8 hours IV for 1 week stop date 01/16/2022 01/08/2022 Disposition; case management to set up long-term antibiotics Patient already got midline placed DC planning per case management[patient has no resources] Discharge in 1 to 2 days if stable 01/09/2022; awaiting long-term antibiotics set up for case management DC planning per case management 01/10/22 patient feels better;, no new complaints Awaiting long-term antibiotics DC planning per case management 01/11/2022; patient awaiting long-term home IV antibiotics set up Multiple social issues, DC planning per case management Conversations through the bilingual [Maltese to Pashto ]granddaughter at the bedside. A/P --Sepsis due to ESBL urinary tract infection; currently on ertapenem Upon discharge transition to meropenem 500 mg IV every 8 hours stop date 01/16/2022 hours , Patient already has midline Awaiting to set up home IV antibiotics . -- Acute pyelonephritis/cultures positive for ESBL On ertapenem daily --UTI (urinary tract infection) Received empiric antibiotics, ESBL positive Change to ertapenem, ID following --severe hyperglycemia/moderate control Accu-Chek sliding scale coverage changed to high scale, Hemoglobin A1c 7.4 long-acting insulin 70/30 10 units twice a day diabetic education, diabetic diet education Home health nurse at discharge for disease monitoring, --Volume depletion/dehydration resolved DC IV fluids, 1 dose of Lasix --Acute kidney injury (DICKSON) /resolved with acute tubular necrosis (ATN) Resolved, renal function within normal limits Continue supportive care --History of vascular dementia Verbal prompting, verbal redirection, benzodiazepine therapy as clinically indicated. --Cerebral atherosclerosis Antiplatelet therapy, risk factor reduction, And supportive care. --Hyponatremia/resolved Monitor electrolytes . -- DVT prophylaxis SCD to bilateral lower extremities while in bed, Subcu Lovenox --Advance care plannin min Disease education conducted, care plan discussed, diagnosis discussed, , prognosis discussed, patient is full code. Patient knowledges understanding and agreement with care plan, +30 minutes. --Preventive health care +30 minutes. Patient counseled regarding home safety measures, accident avoidance, , balanced diet, outpatient follow-up with primary care physician for all age and risk factor appropriate screening test. Closely monitor the patient and adjust management as needed Plan of care reviewed with the patient [through interpretation Through the bilingual family member ]and the family at the bedside Subjective Date of service: 01/12/22 Objective - Exam Narrative Exam: General appearance: Present: no acute distress, well-nourished - EENT Eyes: Present: PERRL, EOM intact - Neck Neck: Present: supple, normal ROM - Respiratory Respiratory effort: normal Respiratory: bilateral: diminished, negative: rales, rhonchi, wheezing - Cardiovascular Rhythm: regular Heart Sounds: Present: S1 & S2 - Extremities Extremities: no ischemia, No edema - Abdominal General gastrointestinal: soft, non-tender, non-distended, normal bowel sounds - Integumentary Integumentary: Present: clear, warm - Psychiatric Psychiatric: appropriate mood/affect, cooperative - Neurologic Neurologic: CNII-XII intact, moves all extremities - Constitutional Vitals: Vital Signs - 12hr 01/12/22 13:56 O2 Sat by Pulse 97 Oximetry - Labs CBC & Chem 7: 01/01/22 14:42 01/10/22 04:22 Labs: Abnormal lab results 01/11/22 01/12/22 01/12/22 Range/Units 21:06 07:59 11:40 POC Glucose 172 H 167 H 125 H (70-105) mg/dL 01/12/22 Range/Units 15:38 POC Glucose 170 H (70-105) mg/dL HEART Score - HEART Score Troponin: Troponin T < 0.010 ng/mL (0.00-0.029) 01/01/22 14:42
[2022-01-12] MEDS: ENOXAPARIN 40 MG/0.4 ML INJ SUB-Q SCH (22:04)
[2022-01-12 23:32] VITALS: BP 118/52
[2022-01-12] MEDS: ACETAMINOPHEN 325 MG TAB PO PRN (23:39)
[2022-01-13] MEDS: INSULIN LISPRO 100 UNIT/ML SUB-Q SCH ×3 (08:41→17:30)
[2022-01-13] MEDS: oxyCODONE /ACETAMINOPHEN 5-325MG TAB PO PRN (10:12)
[2022-01-13] MEDS: FUROSEMIDE 40 MG/4 ML INJ IV SCH (10:12)
[2022-01-13] MEDS: CETIRIZINE 10 MG TAB PO SCH (10:12)
[2022-01-13] MEDS: ERTAPENEM 1 GM in SODIUM CHLORIDE 0.9% 50 ML IV SCH (10:14)
[2022-01-13] MEDS: INSULIN NPH/REGULAR 70/30 INJ SUB-Q SCH ×2 (10:14→17:30)
--- NOTE | 2022-01-13 16:04 | Discharge Summary ---
Providers - Providers Date of Admission: 01/01/22 19:33 Date of discharge: 01/13/22 Attending physician: CASSI PATEL 01/02/22 16:15 Physical Therapy Evaluation and Treat [CONS] Routine Comment: Reason For Exam: History of fall/evaluate and treat/DC needs 01/02/22 16:34 Consult to Dietitian/Nutrition [CONS] Routine Physician Instructions: Reason For Exam: Diabetic diet education Reason for Consult: Diet education 01/03/22 15:22 Physical Therapy Evaluation and Treat [CONS] Routine Comment: Reason For Exam: Unsteady gait/fall, evaluate and treat/DC needs 01/06/22 10:36 Consult to Physician [CONS] Routine Comment: Consulting Provider: GLENNA HANNA Physician Instructions: Reason For Exam: ESBL UTI 01/06/22 21:23 Consult to Case Management [CONS] Routine Services Needed at Discharge: Home Health Services Notified:: NIGEL Additional Physician Instructions: Jessica Hanna MD [facility] M: [phone] O: [phone] F: [phone] Outpatient parenteral antibiotic therapy orders Diagnosis: ESBL pyelonephritis Antibiotic administration: meropenem 500 mg every 8 hours until 01/16/2022 Line: Midline Lab monitoring: CBC with differential, CMP once per week preferably on Tuesday or Tuesday For critical labs, call office: [phone] Jessica Hanna 01/07/22 05:40 Midline [Consult to PICC Line RN] [CONS] Routine 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 DC planning per case management 01/04/2022; urine cultures positive for gram-negative rods Patient is already on Levaquin, follow sensitivities And adjust antibiotics as needed Increase ambulation as tolerated Possible discharge in 1 to 2 days if stable 01/06/2022; urine cultures ESBL positive DC Levaquin start ertapenem, contact isolation ID consulted 01/07/22; ID recommended to continue ertapenem during the hospital stay And switch to meropenem 500 to 8 hours IV for 1 week stop date 01/16/2022 01/08/2022 Disposition; case management to set up long-term antibiotics Patient already got midline placed DC planning per case management[patient has no resources] Discharge in 1 to 2 days if stable 01/09/2022; awaiting long-term antibiotics set up for case management DC planning per case management 01/10/22 patient feels better;, no new complaints Awaiting long-term antibiotics DC planning per case management 01/11/2022; patient awaiting long-term home IV antibiotics set up Multiple social issues, DC planning per case management 01/12/22: Patient clinically stable, waiting on IV antibiotics set up at home. Complains of left leg pain -ordered venous Doppler 01/13/22: Venous Doppler study negative for DVT. Patient found to have left popliteal Robison's cyst. Home antibiotics has been arranged. Patient will be discharged home with home health and roller walker. Conversations through the bilingual [Romanian to Sami ]granddaughter at the bedside. A/P --Sepsis due to ESBL urinary tract infection; currently on ertapenem Upon discharge transition to meropenem 500 mg IV every 8 hours stop date 01/16/2022 hours , Patient already has midline Awaiting to set up home IV antibiotics . -- Acute pyelonephritis/cultures positive for ESBL On ertapenem daily --UTI (urinary tract infection) Received empiric antibiotics, ESBL positive Change to ertapenem, ID following --severe hyperglycemia/moderate control Accu-Chek sliding scale coverage changed to high scale, Hemoglobin A1c 7.4 long-acting insulin 70/30 10 units twice a day diabetic education, diabetic diet education Home health nurse at discharge for disease monitoring, --Volume depletion/dehydration resolved DC IV fluids, 1 dose of Lasix --Acute kidney injury ([place]) /resolved with acute tubular necrosis (ATN) Resolved, renal function within normal limits Continue supportive care --History of vascular dementia Verbal prompting, verbal redirection, benzodiazepine therapy as clinically indicated. --Cerebral atherosclerosis Antiplatelet therapy, risk factor reduction, And supportive care. --Hyponatremia/resolved Monitor electrolytes . -- DVT prophylaxis SCD to bilateral lower extremities while in bed, Subcu Lovenox Disposition: 30 STILL A PATIENT Exam - Constitutional Vitals: Temp Pulse Resp BP Pulse Ox 99.1 F 76 18 118/52 97 01/12/22 23:29 01/12/22 23:29 01/12/22 23:29 01/12/22 23:29 01/13/22 12:58 Plan Activity: advance as tolerated Diet: low fat, low salt Additional Instructions: Apply ice on your left knee and continue ibuprofen 600 mg as needed for pain every 6 hours. Continue IV antibiotics at home till 01/16/22. Follow up with: PRIMARY CAREMD [Primary Care Provider] - 3-5 Days PERRY PADILLA MD [Staff Physician] - 7 Days Prescriptions: Ibuprofen [Motrin 600 MG tab] 600 mg PO Q8H PRN #14 tablet PRN Reason: Pain
== END 2022-01-13 18:09 | disposition home or self-care (01) | DRG 871 ==
LOC: ED 13:58 → 3A 19:33
PROVIDERS: ADMIT Internal Medicine; ATTEND Internal Medicine
PROC: 05HC33Z Insertion of Infusion Device into Left Basilic Vein, Percutaneous Approach (ICD-10-PCS; principal; 2022-01-07)
DX: A41.51 Sepsis due to Escherichia coli [E. coli] (principal); N17.0 Acute kidney failure with tubular necrosis; E87.1 Hypo-osmolality and hyponatremia; N10 Acute pyelonephritis; E86.0 Dehydration; F01.50 Vascular dementia, unspecified severity, without behavioral disturbance, psychotic disturbance, mood disturbance, and anxiety; I67.2 Cerebral atherosclerosis; E11.65 Type 2 diabetes mellitus with hyperglycemia; E86.9 Volume depletion, unspecified; I12.9 Hypertensive chronic kidney disease with stage 1 through stage 4 chronic kidney disease, or unspecified chronic kidney disease; N18.9 Chronic kidney disease, unspecified; E11.22 Type 2 diabetes mellitus with diabetic chronic kidney disease; Z83.3 Family history of diabetes mellitus; Z90.49 Acquired absence of other specified parts of digestive tract; Z82.49 Family history of ischemic heart disease and other diseases of the circulatory system
CPT/HCPCS: 36415; 71045; 74177; 80048; 80053; 81001; 82140; 82962; 83036; 83690; 83735; 84484; 85007; 85025; 85610; 85730; 87040; 87076; 87086; 87186; 93005; 93970; 94640; 94760; G0378; Q0177; Q9967; J0360; J0696; J1170; J1335; J1650; J1815; J1940; J1956; J2405; J2930; J7030